=== PATIENT | male | born 1970 | race Caucasian/White ===

== ENCOUNTER 2023-08-05 16:28 | Emergency (ER) | payer SELFPAY ==
[2023-08-05] VITALS (10 sets, daily range): BP systolic 120–138; BP diastolic 76–88; PULSE 68–91; RESP 14–23; TEMP 36.4–36.7; O2SAT 96–100; BMI 30.4
--- NOTE | 2023-08-05 16:32 | EKG12_ITS ---
Test Reason : POSS STROKE Blood Pressure : / mmHG Vent. Rate : 089 BPM Atrial Rate : 089 BPM P-R Int : 164 ms QRS Dur : 090 ms QT Int : 368 ms P-R-T Axes : 066 -03 054 degrees QTc Int : 447 ms Normal sinus rhythm Normal ECG Confirmed by CARLOS ROSENTHAL, MARI ([id number]), publishing editor ARBEN WANG ([id number]) on 08/14/2023 9:17:10 AM Referred By: Confirmed By:MARI GONZALEZ MD
--- NOTE | 2023-08-05 16:32 | CT_ITS ---
We are attempting to reach an attending provider to discuss findings. An addendum with communication details will be sent when the communication is complete. INDICATION: Neuro deficit, acute, stroke suspected EXAMINATION: CT BRAIN - CT Head Stroke Protocol W/O Contrast Injection TECHNIQUE: Multiple axial images were obtained of the head without intravenous contrast. A radiation dose optimization technique was used for this scan. IV Contrast dosage and agent: None. COMPARISON: 10/01/2015. FINDINGS: BRAIN PARENCHYMA: No intra- or extra-axial hemorrhage. No evidence of acute infarct. No intracranial mass or mass effect. Areas of decreased attenuation within the white matter most compatible with diffuse microangiopathic disease, advanced given patient''s age. Unchanged focus of CSF attenuation structure within the right farhat, likely sequela of old lacunar infarct. Posterior fossa structures are unremarkable. CSF SPACES: Appropriate for age. Nonspecific mild ventriculomegaly. Basal cisterns are patent. CALVARIUM, SKULL BASE, PARANASAL SINUSES AND MASTOID AIR CELLS: Clear. No discrete lytic or blastic abnormalities. ORBITS: Both globes, extraocular muscles, optic nerves and retrobulbar fat appear unremarkable. CT/STROKE Brain/Head without Cont IMPRESSION: Diffuse white matter changes, slightly progressed in the interval. No acute intracranial hemorrhage or space-occupying lesion. Electronically Signed: Maddy Hernandez MD at 17:02 EST ,
--- NOTE | 2023-08-05 16:33 | CT_ITS ---
STUDY: CTA HEAD AND NECK WITH CONTRAST REASON FOR EXAM: Male, 52 years old. Neuro deficit, acute, stroke suspected RADIATION DOSAGE (If Supplied By Facility): CTDIvol = ( 18.16 ) mGy, DLP = ( 780.24 ) mGycm TECHNIQUE: CT angiography was performed with a multi-detector CT scanner. Data acquisition was obtained from the skull base through the vertex following intravenous administration of IV 100mL Isovue-370. MIP images were reconstructed from the axial data set. Post-processing of the angiographic images was performed, with multiplanar reformation and 3D reconstruction. Individualized dose optimization techniques were used for this CT. COMPARISON: No relevant priors. FINDINGS: Normal bilateral petrous carotid arteries. Normal right cavernous carotid artery with a normal supraclinoid bifurcation. Normal left cavernous carotid artery with a normal supraclinoid bifurcation. Normal right A1 segments of the anterior cerebral artery. Normal left A1 segments of the anterior cerebral artery. Normal intact anterior communicating artery (ACOM). Normal bilateral A2 segments of the anterior cerebral arteries. Normal right M1 and M2 segments of the middle cerebral arteries, with a normal M1 bifurcation. Normal left M1 and M2 segments of the middle cerebral arteries, with a normal M1 bifurcation. Normal right posterior communicating artery (PCOM). Normal left posterior communicating artery (PCOM). Normal bilateral vertebral arteries. Normal basilar artery with a normal basilar bifurcation. The visualized bilateral superior cerebellar (SCA) arteries are normal. Normal bilateral P1, P2 and visualized P3 segments of the posterior cerebral arteries. There is no demonstrated aneurysm of the [place] of [place]. There is no demonstrated abnormality of the visualized brain. AORTIC ARCH: Normal visualized aortic arch. Normal origins of the brachiocephalic, left common carotid, and left subclavian arteries. RIGHT CAROTID ARTERIES: Normal right common carotid artery (CCA). Normal right common carotid bulb. Normal origin of the right internal carotid (ICA) artery without a hemodynamically significant stenosis. Normal visualized cervical portion of the right internal carotid artery. Normal origin of the right external carotid artery (ECA). LEFT CAROTID ARTERIES: Normal left common carotid artery (CCA). Normal left common carotid bulb. Normal origin of the left internal carotid (ICA) artery without a hemodynamically significant stenosis. Normal visualized cervical portion of the left internal carotid artery. Normal origin of the left external carotid artery (ECA). VERTEBRAL ARTERIES: Normal bilateral vertebral arteries. CT/STROKE CTA Head AND Neck W/Con IMPRESSION: Negative CTA Head without focal stenosis, occlusion or aneurysm. Negative CTA of the neck with no focal stenosis, occlusion or dissection. N.B. : The above Results were Read Back by Maddy Hernandez MD to Axel Steiner DO, and understanding confirmed on 08/05/2023 17:08:30 (ET). Electronically Signed: Maddy Hernandez MD at 17:08 EST ,
--- NOTE | 2023-08-05 16:34 | ED.VIS.STROK ---
HPI History of Present Illness Chief Complaint: Stroke Alert Informant: patient Onset/Context/Timing Onset: Today Context: Sudden Onset Timing: Continuous Quality and Location: Positive for - (Diplopia and tongue numbness) Onset: Woke up with symptoms Worsened by: Nothing Relieved by: Nothing Associated Symptoms Associated Symptoms: Positive for Headache; Negative for Nausea, Vomiting or Chest Pain Narrative Narrative: Patient presents with diplopia and numbness of his tongue that began when he woke up today. Patient states he went to bed between 10:30 PM and 11 PM last night. Patient states he was feeling nearly normal at that time. Patient states he was diagnosed with a stroke a couple weeks ago and has had some waxing and waning symptoms since that time. Patient states his entire tongue feels numb. Patient admits to a mild headache. Patient denies any slurred speech. Patient denies any difficulty ambulating. Patient denies any weakness of his extremities. Patient states his forehead feels somewhat numb. Patient states he has a condition that mimics strokes and that if he is treated like a stroke, it will kill him. [facility] Medical History (Updated 08/05/23 @ 18:[address] Axel Steiner DO) CADASIL Stroke Home Medications taurine 500 mg capsule (Pure Taurine) 500 mg PO DAILY 08/05/23 [History Last Taken Unknown] Allergy/AdvReac Type Severity Reaction Status Date / Time Penicillins Allergy Other Verified 08/05/23 16:29 Social History Smoking Status: Never smoker ROS ROS ED Constitutional Constitutional ED: Denies chills or fever(s) Eyes Eyes: Reports diplopia; Denies blurry vision ENT ENT ED: Denies rhinorrhea or sore throat Cardiovascular Cardiovascular: Denies chest pain or palpitations Respiratory/Chest Respiratory/Chest: Reports dyspnea; Denies cough Gastrointestinal Gastrointestinal: Denies nausea or vomiting Genitourinary Genitourinary ED: Denies dysuria or hematuria Musculoskeletal Musculoskeletal: Denies back pain or neck pain Integumentary Denies abscess or rash Neurologic Neurologic: Reports headache(s); Denies weakness Allergic/Immunologic Allergic/Immunologic ED: Denies mouth swelling or urticaria EXAM Physical Exam Const Vital Signs: 08/05/23 16:29 08/05/23 16:32 08/05/23 16:38 Temperature 97.6 F L 97.8 F Temperature Source Temporal Temporal Pulse Rate 90 68 Respiratory Rate 14 16 Blood Pressure 131/88 H Blood Pressure Mean 102 Pulse Ox 98 98 Oxygen Delivery Method Room Air Room Air Room Air 08/05/23 16:56 08/05/23 16:32 08/05/23 17:00 Temperature Temperature Source Pulse Rate 91 89 88 Respiratory Rate 18 20 H 17 Blood Pressure 124/82 H 131/88 H 120/76 Blood Pressure Mean 96 102 90 Pulse Ox 98 97 98 Oxygen Delivery Method Room Air Room Air Room Air 08/05/23 17:30 Temperature Temperature Source Pulse Rate 78 Respiratory Rate 14 Blood Pressure 138/85 H Blood Pressure Mean 102 Pulse Ox 99 Oxygen Delivery Method Room Air Positive well nourished and well developed General Appearance ED: well developed and NAD HEENT Reports moist mucous membranes Eyes PERRL and EOMs intact bilaterally Neck supple and no JVD Chest Wall inspection of chest normal and palpation of chest normal Resp normal respiratory effort and clear to auscultation bilaterally Cardio Rate: regular rate Rhythm: regular rhythm GI soft to palpation, non-tender and non-distended Extremity normal to inspection General Extremety ED: Negative for deformity, edema or tenderness General Extremity: Negative for deformity or edema Neuro oriented x3 Neuro Narrative: There is slight decreased sensation to light touch over the forehead bilaterally. Severance Coma Scale: document GCS findings Spontaneous Obeys Commands Oriented 15 Sensorium / Orientation: alert Speech: speech normal Motor Exam: strength 5/5 throughout Psych mental status grossly normal Skin no wounds NIHSS NIHSS Initial: 1a Level of Consciousness: 0 1b LOC Questions (Score 2 if aphasic/stupor): 0 1c LOC Commands (Only score 1st attempt): 0 2 Best Gaze (If aphasic, use reflexive mvmts.): 0 3 Visual: 0 4 Facial Palsy: 0 5 Motor Arm Right (UN = amputation/fusion): 0 5 Motor Arm Left: 0 6 Motor Leg Right: 0 6 Motor Leg Left: 0 7 Limb ataxia (Only + if out of proportion): 0 8 Sensory (Aphasia/stupor=0 or 1, coma=2): 1 9 Best Language: 0 10 Dysarthria (mute, coma=2, intubated=UN): 0 11 Extinction and Inattention (only scored if +): 0 Total Score: 1 MDM MDM MDM Narrative Medical decision making narrative: Differential diagnosis includes stroke, intracranial bleeding, electrolyte abnormality, atypical migraine, cardiac dysrhythmia, cardiac ischemia, pneumonia, and coagulopathy. CT scan of the brain will be obtained to assess for stroke and intracranial bleeding. CTA of the head and neck will be obtained to assess for large vessel occlusion. EKG will be obtained to assess for cardiac dysrhythmia and cardiac ischemia. CBC will be obtained to assess for leukocytosis and anemia. Basic metabolic profile will be obtained to assess for electrolyte abnormality and renal function. PT with INR and PTT will be obtained to assess for coagulopathy. High-sensitivity troponin will be obtained to assess for cardiac ischemia. Lab Data Attestation: I reviewed the patient's lab results. Lab results narrative: CBC was reviewed and was within normal limits. PT with INR and PTT were reviewed and were within normal limits. Basic metabolic profile was reviewed and was within normal limits. High-sensitivity troponin was reviewed and was normal at 5. BGT was obtained and was 116. Labs: Laboratory Results - last 24 hr 08/05/23 08/05/23 16:30 16:32 WBC 8.2 RBC 5.66 Hgb 17.1 H Hct 52.0 MCV 91.9 MCH 30.2 MCHC 32.9 RDW Std Deviation 42.9 RDW Coeff of Yevgeniy 12.8 Plt Count 278 MPV 9.2 Immature Gran % (Auto) 0.200 Neut % (Auto) 61.9 Lymph % (Auto) 26.8 [place] % (Auto) 8.7 Eos % (Auto) 1.9 Baso % (Auto) 0.5 Absolute Neuts (auto) 5.1 Absolute Lymphs (auto) 2.21 Nucleated RBC % 0 PT 12.8 INR 1.0 APTT 31.9 Sodium 138 Potassium 4.0 Chloride 105 Carbon Dioxide 30.0 Anion Gap 3 L BUN 17 Creatinine 1.07 Estim Creat Clear Calc 76.36 Est GFR (MDRD) Af Amer 92 Est GFR (MDRD) Non-Af 76 BUN/Creatinine Ratio 15.9 Glucose 116 H Calcium 9.9 Troponin I High Sens 5 POC Glucose 116 H Radiography Chest X-Ray - ED: 1 View, Read by ED Physician, Read by Radiologist and No Acute Disease Diagnostic Testing: Clinical Impression(s) from Imaging Studies Brain CT 08/05/23 16:32 IMPRESSION: Diffuse white matter changes, slightly progressed in the interval. No acute intracranial hemorrhage or space-occupying lesion. Electronically Signed: Maddy Hernandez MD at 17:02 EST Reading Location ID and State: [employer] , Service support , ADDENDUM: 08/05/23 1715 IMPRESSION: Diffuse white matter changes, slightly progressed in the interval. No acute intracranial hemorrhage or space-occupying lesion. N.B. : The above Results were Read Back by Maddy Hernandez MD to Axel Steiner DO, and understanding confirmed on 08/05/2023 17:08:25 (ET). Electronically Signed: Maddy Hernandez MD at 17:02 EST Reading Location ID and State: [employer] , Service support , Head/Neck CTA 08/05/23 16:33 IMPRESSION: Negative CTA Head without focal stenosis, occlusion or aneurysm. Negative CTA of the neck with no focal stenosis, occlusion or dissection. N.B. : The above Results were Read Back by Maddy Hernandez MD to Axel Steiner DO, and understanding confirmed on 08/05/2023 17:08:30 (ET). Electronically Signed: Maddy Hernandez MD at 17:08 EST Reading Location ID and State: [employer] , Service support , ADDENDUM: 08/05/23 1715 IMPRESSION: Negative CTA Head without focal stenosis, occlusion or aneurysm. Negative CTA of the neck with no focal stenosis, occlusion or dissection. N.B. : The above Results were Read Back by Maddy Hernandez MD to Axel Steiner DO, and understanding confirmed on 08/05/2023 17:08:30 (ET). Electronically Signed: Maddy Hernandez MD at 17:08 EST Reading Location ID and State: [employer] , Service support , Chest X-Ray 08/05/23 17:20 IMPRESSION: Normal x-ray examination of the chest for age. Electronically Signed: Maddy Hernandez MD at 17:37 EST , Portable 1 view chest x-ray was obtained. On my independent interpretation, lung zamudio are clear. There is normal cardiac silhouette. Bony thorax is normal. There is no acute process noted. Radiologist also interpreted the x-ray and agrees. CT scan of the brain was obtained. There is no acute intracranial abnormality. There are diffuse white matter changes which have slightly progressed since previous CT. This was interpreted by the radiologist and was also independently reviewed by myself. CTA of the head and neck was obtained. There is no evidence of intracranial bleeding, large vessel occlusion, or stenosis. There is no aneurysm noted. This was interpreted by the radiologist and was also independently reviewed by myself. EKG Initial EKG: Attestation: I personally reviewed and interpreted this EKG as follows: Interpretation: Sinus Rhythm (89) and No Acute Injury Pattern Comments: EKG was obtained. On my independent interpretation, it showed a normal sinus rhythm with a rate of 89. MI interval, QRS interval, and QTc intervals were all normal. [place] was normal. There are no acute ST or T wave changes. Prior EKG tracings: available for review Prior: Unchanged (10/01/2015) Management Discussion w/another healthcare provider: Continuous [employer] Supervisor and Radiologist Treatment and Re-Evaluation Narrative: Patient was given a dose of Ativan prior to his CT scan. Patient was advised of his findings. Case was discussed with stroke neurologist at [facility], Dr. Lemus. He recommended transferring the patient to [facility] for further stroke workup. Patient is agreeable with this. Patient was accepted to the emergency department under the service of Dr. Fleming. Patient understood and was agreeable with the plan. All questions were answered. Stroke Documentation Questions Stroke Team Activated: Yes Reviewed Inclusion/Exclusion criteria: Yes Was Patient considered for Endovascular Intervention?: No-CTA negative, determined not to be an endovascular candidate IV Thrombolytic Administered: No Critical Care Time Critical Care Time: Yes Critical care time (excluding procedures): 30-74 minutes (33), Including time spent:, Discussing w/Patient &/or Family/Ramp Lead, Discussing w/Consultants, Arranging Admission or Transfer and Performing Direct Patient Care at Bedside Discharge Plan Triage Chief Complaint: Stroke Alert ED Provider: Axel Steiner Dx/Rx/DC Orders Clinical Impression: Diplopia, CADASIL, Stroke Prescriptions: No Action Pure Taurine 500 mg capsule 500 mg PO DAILY Referrals: Sanjiv Molina MD [Non-Staff] - Disposition Disposition: Acute Care Hospital Discharge Location: [facility]
--- NOTE | 2023-08-05 16:35 | ED.RN ---
PT. WAS GETTING READY TO GO TO CT, PT STATES HE ABSOLUTELY NEEDS SOMETHING TO HELP HIM CALM DOWN HE WILL FREAK OUT. THAT IS DELAY IN CT. AT THIS POINT
[2023-08-05] MEDS: LORazepam 2 MG/ML Syringe 0.5 MG IV (16:37)
--- NOTE | 2023-08-05 16:42 | ED.RN ---
face sheet faxed to [facility]
[2023-08-05 16:43] LABS: Absolute Lymphocyte Count 2.21 X10^3/uL (0.83-4.51); Absolute Neutrophil Count 5.1 X10^3/uL (2.0-7.7); Basophil# 0.04 X10^3/uL; Basophil% 0.5 % (0-1); Eosinophil# 0.16 X10^3/uL; Eosinophils% 1.9 % (0-5); Hemoglobin 17.1 g/dL (13.0-16.5); Lymphocyte # 2.21 X10^3/ul (0.83-4.51); Lymphocyte % 26.8 % (19-41); Mean Corp Hgb Conc 32.9 g/dL (32-36); Mean Corpuscular Hgb 30.2 pg (27.0-32.0); Mean Corpuscular Volume 91.9 fL (80-94); Mean Platelet Vol. 9.2 fl (6.2-12.0); Monocyte# 0.72 X10^3/uL; Monocyte% 8.7 % (0-10); NRBC Flagged by Analyzer 0 % (0-5); Neutrophil # 5.09 X10^3/uL (2.7-7.7); Neutrophil % 61.9 % (47-70); Platelet Count 278 K/mm3 (150-450); RBC Distribution Width CV 12.8 % (11.6-14.6); RBC Distribution Width SD 42.9 fl (35.1-43.9); Red Blood Count 5.66 M/mm3 (4.6-6.2); White Blood Count 8.2 K/mm3 (4.4-11.0)
[2023-08-05 16:46] LABS: Partial Thromboplast Time 31.9 Seconds (24.1-36.2); Prothrombin Time (Protime)PT. 12.8 SECONDS (11.7-14.9)
[2023-08-05 16:50] LABS: Bedside Glucose 116 mg/dL (74-106)
--- NOTE | 2023-08-05 16:52 | ED.RN ---
pt refused to go to ct until he had ativan. once pt given ativan he said he needed to pee before going to ct. this rn attempted to explaine the importance of the ct. once we arrived to ct the pt was given an urinal, pt attempted to urinate but was unable. now pt is ready for his ct. ct/cta complete. pt returned to room.
[2023-08-05 16:56] LABS: Anion Gap 3 (5-15); BUN 17 mg/dL (7-18); BUN/Creat Ratio 15.9 RATIO (10-20); Calcium,Total 9.9 mg/dL (8.5-10.1); Chloride 105 mmol/L (98-107); Creatinine, Serum 1.07 mg/dL (0.70-1.30); EST Glomerular Filtration Rate 76 mL/min (>60); Est Glom Filt Rate - Afr Amer 92 mL/min (>60); Estimated Creatinine Clearance 76.36 ml/min; Glucose 116 mg/dL (74-106); Sodium Level 138 mmol/L (136-145); Troponin-I HS 5 pg/mL (3.0-78.0)
--- NOTE | 2023-08-05 17:20 | RAD_ITS ---
STUDY: X-RAY CHEST REASON FOR EXAM: Male, 52 years old. Neuro deficit, acute, stroke suspected TECHNIQUE: Single AP portable view of the chest. COMPARISON: None. FINDINGS: The lungs are clear and expanded. There is no demonstrated pleural abnormality. Normal size heart. Normal mediastinum and man. Normal visualized pulmonary arteries. Normal visualized aortic arch and descending thoracic aorta. Normal visualized thoracic spine. Normal visualized ribs, clavicles, and shoulders. There is no demonstrated abnormality of the visualized soft tissue structures of the upper abdomen. RAD/Chest 1 View IMPRESSION: Normal x-ray examination of the chest for age. Electronically Signed: Maddy Hernandez MD at 17:37 EST ,
--- NOTE | 2023-08-05 19:33 | ED.RN ---
pt's family asked about taking the pt to [facility] themselves.Spoke to dr Steiner and was okay with them taking him as long as his IV is removed.
== END 2023-08-05 20:00 | disposition short-term general hospital (02) ==
PROVIDERS: Emergency Provider Emergency Medicine; Visit Provider Emergency Medicine
DX: H53.2 Diplopia (principal); I63.9 Cerebral infarction, unspecified; I67.850 Cerebral autosomal dominant arteriopathy with subcortical infarcts and leukoencephalopathy
CPT/HCPCS: 70450; 70496; 70498; 71045; 80048; 82962; 84484; 85025; 85610; 85730; 93005; 96374; 99285; Q9967

== ENCOUNTER → 2023-12-12 | Outpatient (CLI) | payer MEDICAID, SELFPAY ==
[2023-12-12 11:11] LABS: Absolute Lymphocyte Count 1.62 X10^3/uL (0.83-4.51); Absolute Neutrophil Count 5.3 X10^3/uL (2.0-7.7); Basophil# 0.02 X10^3/uL; Basophil% 0.3 % (0-1); Eosinophil# 0.09 X10^3/uL; Eosinophils% 1.2 % (0-5); Hematocrit 51.3 % (40-54); Hemoglobin 17.6 g/dL (13.0-16.5); Lymphocyte # 1.62 X10^3/ul (0.83-4.51); Lymphocyte % 20.8 % (19-41); Mean Corp Hgb Conc 34.3 g/dL (32-36); Mean Corpuscular Hgb 31.3 pg (27.0-32.0); Mean Corpuscular Volume 91.1 fL (80-94); Mean Platelet Vol. 9.4 fl (6.2-12.0); Monocyte# 0.71 X10^3/uL; Monocyte% 9.1 % (0-10); NRBC Flagged by Analyzer 0 % (0-5); Neutrophil # 5.31 X10^3/uL (2.7-7.7); Neutrophil % 68.3 % (47-70); Platelet Count 227 K/mm3 (150-450); RBC Distribution Width CV 12.1 % (11.6-14.6); RBC Distribution Width SD 40.4 fl (35.1-43.9); Red Blood Count 5.63 M/mm3 (4.6-6.2); White Blood Count 7.8 K/mm3 (4.4-11.0)
[2023-12-12 11:39] LABS: ALB/GLOB Ratio 0.9 RATIO (0.9-2.4); AST(SGOT) 26 U/L (15-37); Alanine Aminotransfer ALT/SGPT 37 U/L (16-61); Albumin, Serum 3.5 g/dL (3.2-5.0); Alkaline Phosphatase 79 U/L (45-117); Anion Gap 4 (5-15); BUN 14 mg/dL (7-18); BUN/Creat Ratio 12.6 RATIO (10-20); Calcium,Total 9.2 mg/dL (8.5-10.1); Chloride 105 mmol/L (98-107); Cholesterol 197 mg/dL (200); Creatinine, Serum 1.11 mg/dL (0.70-1.30); EST Glomerular Filtration Rate 73 mL/min (>60); Est Glom Filt Rate - Afr Amer 88 mL/min (>60); Free T3 2.5 pg/mL (2.18-3.98); Glucose 116 mg/dL (74-106); High Density Lipoprotein 44 mg/dL; PSA,Total - Annual Screen 1.97 ng/mL (0.00-4.00); Potassium 4.1 mmol/L (3.5-5.1); Protein, Total 7.5 g/dL (6.4-8.2); Sodium Level 137 mmol/L (136-145); T4 Free Direct 0.91 ng/dL (0.76-1.46); Thyroid Stim Hormone (TSH) 1.07 uIU/mL (0.358-3.74); Triglycerides 128 mg/dL; Very Low Density Lipoprotein 26 mg/dL (5-40)
[2023-12-13 07:01] LABS: Estradiol 59.4 pg/mL
[2023-12-13 12:09] LABS: PSA, Total 1.8 ng/mL (0.0-4.0); Thyroid Peroxidase AB < 9 IU/mL (0-34)
== END | disposition home or self-care (01) ==
LOC: PAVLAB 10:40
PROVIDERS: PCP Registered Nurse; Referring Provider Registered Nurse; Visit Provider Registered Nurse
DX: F48.2 Pseudobulbar affect (principal); I67.850 Cerebral autosomal dominant arteriopathy with subcortical infarcts and leukoencephalopathy; E03.9 Hypothyroidism, unspecified; N40.1 Benign prostatic hyperplasia with lower urinary tract symptoms; R97.20 Elevated prostate specific antigen [PSA]; Z12.5 Encounter for screening for malignant neoplasm of prostate; Z13.29 Encounter for screening for other suspected endocrine disorder
CPT/HCPCS: 84153; 36415; 80053; 80061; 82670; 84403; 84439; 84443; 84481; 85025; 86376; G0103

== ENCOUNTER 2024-01-24 10:50 | Emergency (ER) | payer SELFPAY, MEDICAID ==
[2024-01-24 10:52] VITALS: BP 129/87; PULSE 82; RESP 16; TEMP 36.6; O2SAT 97; BMI 30.1
--- NOTE | 2024-01-24 11:05 | RAD_ITS ---
STUDY: X-RAY - LEFT ANKLE REASON FOR EXAM: Male, 53 years old. INJURY TECHNIQUE: 3 view(s) of the ankle. COMPARISON: None. FINDINGS: Normal visualized distal tibia and fibula. Normal medial and lateral malleoli. Normal tibiotalar articulation and ankle mortise. Normal visualized talus and calcaneus. The visualized subtalar, talonavicular, calcaneocuboid and tarsal articulations are normal. Soft tissue swelling overlying the lateral malleolus. RAD/Ankle min 3 Views IMPRESSION: Soft tissue swelling overlying the lateral malleolus. Electronically Signed: Ivan Chavez MD at 11:23 EDT ,
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
[2024-01-24] MEDS: Ibuprofen 600 MG Tablet PO (11:45)
--- NOTE | 2024-01-24 12:40 | RAD_ITS ---
STUDY: X-RAY - LEFT FOOT CLINICAL: Male, 53 years old. Foot injury TECHNIQUE: 3 view(s) of the foot. COMPARISON: None. FINDINGS: Normal talus, calcaneus, and tarsal bones. Normal visualized subtalar, talonavicular, calcaneocuboid, tarsal and tarsometatarsal articulations. Normal metatarsi. Normal metatarsophalangeal joint of the great toe. Normal tibial and fibular sesamoid bones. Normal interphalangeal joint of the great toe. Normal phalanges of the great toe. Normal second through fifth metatarsophalangeal joints. Normal interphalangeal joints and phalanges of the lesser toes. The soft tissue structures are unremarkable. RAD/Foot min 3 Views IMPRESSION: Normal x-ray examination of the foot. Electronically Signed: Ivan Chavez MD at 13:09 EDT ,
--- NOTE | 2024-01-24 13:44 | RAD_ITS ---
STUDY: X-RAY - LEFT SHOULDER REASON FOR EXAM: Male, 53 years old. Anterior left shoulder pain. TECHNIQUE: 4 view(s) of the shoulder. COMPARISON: None. FINDINGS: Normal glenohumeral articulation. There is widening of the AC joint, with displacement of the clavicle, consistent with a Type III acromioclavicular joint separation. Normal acromion. Normal humeral head and visualized proximal humerus. The soft tissue structures are unremarkable. Normal visualized pulmonary apex. RAD/Shoulder min 2 Views IMPRESSION: Type III left AC joint separation. Electronically Signed: Ivan Chavez MD at 14:24 EDT ,
[2024-01-24 14:51] VITALS: BP 145/88; PULSE 74; RESP 16; TEMP 36.7; O2SAT 98
--- NOTE | 2024-01-24 15:15 | NURSING ---
Pt given new dc instructions. Pt and family verbalized understanding.
== END 2024-01-24 15:25 | disposition home or self-care (01) ==
PROVIDERS: Emergency Provider Emergency Medicine; PCP Registered Nurse; Visit Provider Emergency Medicine
DX: S93.402A Sprain of unspecified ligament of left ankle, initial encounter (principal); R73.03 Prediabetes; Z86.73 Personal history of transient ischemic attack (TIA), and cerebral infarction without residual deficits; X58.XXXA Exposure to other specified factors, initial encounter
CPT/HCPCS: 73030; 73610; 73630; 99284

== ENCOUNTER 2024-02-05 09:16 | Emergency (ER) | payer MEDICAID, SELFPAY ==
[2024-02-05 09:17] VITALS: BP 134/94; PULSE 81; RESP 18; TEMP 36.6; O2SAT 97; BMI 29.1
--- NOTE | 2024-02-05 09:26 | RAD_ITS ---
STUDY: X-RAY - LEFT FOOT CLINICAL: Male, 53 years old. Pain trauma TECHNIQUE: 3 view(s) of the foot. COMPARISON: None. FINDINGS: Normal talus, calcaneus, and tarsal bones. Normal visualized subtalar, talonavicular, calcaneocuboid, tarsal and tarsometatarsal articulations. Normal metatarsi. Normal metatarsophalangeal joint of the great toe. Normal tibial and fibular sesamoid bones. Normal interphalangeal joint of the great toe. Normal phalanges of the great toe. Normal second through fifth metatarsophalangeal joints. Normal interphalangeal joints and phalanges of the lesser toes. Soft tissue swelling. RAD/Foot min 3 Views IMPRESSION: Soft tissue swelling. Electronically Signed: Ivan Chavez MD at 10:08 EDT ,
--- NOTE | 2024-02-05 09:26 | RAD_ITS ---
STUDY: X-RAY - LEFT SHOULDER REASON FOR EXAM: Male, 53 years old. Pain trauma TECHNIQUE: 4 view(s) of the shoulder. COMPARISON: None. FINDINGS: Normal glenohumeral articulation. There is widening of the AC joint, with displacement of the clavicle, consistent with a Type III acromioclavicular joint separation. Normal acromion. Normal humeral head and visualized proximal humerus. The soft tissue structures are unremarkable. Normal visualized pulmonary apex. RAD/Shoulder min 2 Views IMPRESSION: There is evidence of a type III left acromioclavicular joint separation. Electronically Signed: Ivan Chavez MD at 10:10 EDT ,
--- NOTE | 2024-02-05 09:26 | RAD_ITS ---
STUDY: X-RAY - LEFT ANKLE REASON FOR EXAM: Male, 53 years old. Pain trauma TECHNIQUE: 3 view(s) of the ankle. COMPARISON: None. FINDINGS: Normal visualized distal tibia and fibula. Normal medial and lateral malleoli. Normal tibiotalar articulation and ankle mortise. Normal visualized talus and calcaneus. The visualized subtalar, talonavicular, calcaneocuboid and tarsal articulations are normal. Soft tissue swelling. RAD/Ankle min 3 Views IMPRESSION: Soft tissue swelling. Electronically Signed: Ivan Chavez MD at 10:09 EDT ,
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
--- NOTE | 2024-02-05 09:53 | RAD_ITS ---
STUDY: X-RAY - LEFT TIBIA AND FIBULA REASON FOR EXAM: Male, 53 years old. Injury/Pain TECHNIQUE: 2 view(s) of the tibia and fibula were obtained. COMPARISON: None. FINDINGS: Normal visualized tibia. Normal visualized fibula. Soft tissue swelling. RAD/Tibia & Fibula 2 Views IMPRESSION: Soft tissue swelling. Electronically Signed: Ivan Chavez MD at 10:41 EDT ,
[2024-02-05 11:27] VITALS: BP 145/95; PULSE 75; RESP 16; TEMP 36.4; O2SAT 94
== END 2024-02-05 11:28 | disposition home or self-care (01) ==
PROVIDERS: Emergency Provider Emergency Medicine; PCP Registered Nurse; Visit Provider Emergency Medicine
DX: S93.402A Sprain of unspecified ligament of left ankle, initial encounter (principal); Z86.73 Personal history of transient ischemic attack (TIA), and cerebral infarction without residual deficits; V29.888A Rider (driver) (passenger) of other motorcycle injured in other specified transport accidents, initial encounter
CPT/HCPCS: 73030; 73590; 73610; 73630; 99283

== ENCOUNTER 2024-03-09 20:47 | Emergency (ER) | payer MEDICAID, SELFPAY ==
[2024-03-09 20:48] VITALS: BP 150/109; PULSE 96; RESP 15; TEMP 36.2; O2SAT 95; BMI 29.2
--- NOTE | 2024-03-09 20:56 | RAD_ITS ---
INDICATION: injury EXAMINATION/TECHNIQUE: X-RAY - LEFT XR Foot Min 3 Views COMPARISON: Left foot radiographs 01/24/2024. FINDINGS: 3 views of the left foot. BONES: Normal anatomic alignment without evidence of fracture or subluxation. No concerning bony lesion or abnormal sclerosis to suggest lesion. JOINTS: No significant degenerative change. SOFT TISSUES: Unremarkable. RAD/Foot min 3 Views IMPRESSION: No acute osseous abnormality of the left foot. Electronically Signed: Abiel Armstrong MD at 21:21 EDT ,
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
--- NOTE | 2024-03-09 21:00 | RAD_ITS ---
INDICATION: injury EXAMINATION/TECHNIQUE: X-RAY - LEFT XR Ankle Min 3 Views COMPARISON: left ankle radiographs 01/24/2024 FINDINGS: 3 views of the left ankle. BONES: Normal anatomic alignment without evidence of fracture or subluxation. No concerning bony lesion or abnormal sclerosis to suggest lesion. JOINTS: No significant degenerative change. SOFT TISSUES: Bimalleolar soft tissue swelling. RAD/Ankle min 3 Views IMPRESSION: No acute osseous abnormality of the left ankle. Electronically Signed: Abiel Armstrong MD at 21:16 EDT ,
[2024-03-09 22:21] VITALS: BP 140/98; PULSE 82; RESP 16; TEMP 36.3; O2SAT 94
== END 2024-03-09 22:21 | disposition home or self-care (01) ==
PROVIDERS: Emergency Provider Emergency Medicine; PCP Registered Nurse; Visit Provider Emergency Medicine
DX: S90.02XA Contusion of left ankle, initial encounter (principal); S90.32XA Contusion of left foot, initial encounter; E03.9 Hypothyroidism, unspecified; Z79.899 Other long term (current) drug therapy; X58.XXXA Exposure to other specified factors, initial encounter; Z86.73 Personal history of transient ischemic attack (TIA), and cerebral infarction without residual deficits
CPT/HCPCS: 73610; 73630; 99282

== ENCOUNTER 2024-03-26 15:34 | Emergency (ER) | payer MEDICAID, SELFPAY ==
[2024-03-26 15:35] VITALS: BP 163/91; PULSE 100; RESP 17; TEMP 36.6; O2SAT 97
[2024-03-26] MEDS: Ketorolac 30 MG/ML Syringe IM (16:14)
--- NOTE | 2024-03-26 16:30 | RAD_ITS ---
STUDY: X-RAY - LUMBAR SPINE REASON FOR EXAM: Male, 53 years old. back pain on left radiating to foot TECHNIQUE: 5 view(s) of the lumbar spine were obtained including flexion and extension on the lateral projection. COMPARISON: None FINDINGS: Normal lumbar lordosis. There is no substantial scoliosis. There is a normal alignment of the vertebrae. Films obtained in flexion and extension demonstrate limited motion in extension but no evidence for instability upon flexion or extension No evidence for acute fracture or subluxation. No lytic or sclerotic bony lesions. . There is very minor multilevel disc space narrowing and endplate spurring. The soft tissue structures are unremarkable. RAD/L/S Spine Bending Flex/Ext IMPRESSION: Early spondylotic changes. No acute fracture or other significant bony pathology. Electronically Signed: Piter Mendoza MD at 17:00 EDT ,
--- NOTE | 2024-03-26 16:57 | EDS_ITS ---
HPI History of Present Illness Chief Complaint: Back Narrative Narrative: Patient is a 53-year-old male with a past medical history of hypothyroidism, stroke, CADASIL who presents to the emerged part with a chief complaint of left- sided back pain radiating down to his foot. Patient states that this happened before where he is sitting in a chair and notes that he has extreme back pain shooting down his foot. He states that the only thing that helped him in the past was massage therapy and states that he cannot afford this right now therefore he was advised to come to the emergency department for symptomatic relief. Patient states that he did not take anything [id number] for pain prior to his arrival here. Patient denies any trauma or new injuries. Patient states that he has not had any x-rays of his lower back at least recently. Patient states that he has been urinating normally for self and having normal bowel movements. Denies any fevers PFSH PFSH Medical History Hypothyroidism Left shoulder pain CADASIL Stroke Home Medications ?Medication ?Instructions ?Recorded ?Last Taken ?Type bupropion HCl 300 mg 24 hr tablet, 300 mg PO DAILY 03/09/24 Unknown History extended release escitalopram oxalate 10 mg tablet 5 mg PO DAILY 03/09/24 Unknown History ondansetron 4 mg disintegrating 4 mg PO Q8H PRN nausea and 03/26/24 Unknown Rx tablet vomiting #12 tabs oxycodone-acetaminophen 5 mg-325 1 tab PO Q6H PRN pain 3 days #12 03/26/24 Unknown Rx mg tablet (Endocet) tabs Allergy/AdvReac Type Severity Reaction Status Date / Time Penicillins Allergy Other Verified 03/26/24 15:35 Surgical History Hx of tonsillectomy Social History Smoking Status: Never smoker ROS ROS ED ROS Narrative Constitutional: Denies any fevers, chills, headaches, lightheadedness, dizziness Eyes: Denies change in vision double vision blurry vision Cardiovascular: Denies chest pain or palpitations Respiratory: Denies coughing wheezing shortness of breath Abdomen: Denies abdominal pain nausea vomiting diarrhea states that he is having normal bowel movements as noted in HPI : Denies any painful urination, hematuria, polyuria and states that he has been urinating normally for himself Neurological: States that he has sharp shooting pain from his back down to his foot and the left side denies any other weakness or tingling Musculoskeletal: Complains of back pain as noted in HPI Skin: Denies rashes or lesions EXAM Physical Exam Narrative Exam Narrative: General: Patient was lying in bed rest comfortably did not appear to be uncomfortable secondary to back pain Head: Atraumatic, normocephalic Eyes: PERRL bilaterally, EOMI bilateral, no conjunctival injection noted Neck: Soft, supple, trach midline Cardiovascular: Regular rate and rhythm no murmurs gallops rubs noted Respiratory: Clear to auscultation bilaterally Abdomen: No tenderness palpation, soft, nondistended, bowel sounds present x 4 Musculoskeletal: No midline tenderness palpation thoracolumbar spine, tender to palpation over the left quadratus lumborum Extremities: +5/5 strength noted in the bilateral upper and lower extremities, no pedal edema no exam, radial pulses +2/4 in the bilateral upper extremities Neurological: Patient was following commands knew that he was at [facility] year is 2023. Sensation grossly intact in the bilateral lower extremities, no saddle anesthesia noted Skin: Warm, dry, intact no rashes or lesions noted Const Vital Signs: 03/26/24 15:35 03/26/24 17:34 Temperature 98 F Temperature Source Temporal Pulse Rate 100 81 Respiratory Rate 17 16 Blood Pressure 163/91 H 136/91 H Blood Pressure Mean 115 106 Pulse Ox 97 97 Oxygen Delivery Method Room Air Room Air MDM MDM MDM Narrative Medical decision making narrative: Patient is a 53-year-old male who presents to the emergency department with chief complaint of back pain radiating to his left foot as noted above. Patient will have a workup performed here on the differential diagnose includes but not limited to sciatica, herniated lumbar disc, musculoskeletal strain. Once workup is obtained and reviewed he will be reevaluated. Patient be given Toradol intramuscularly here. Patient's x-ray reviewed and showed early spondylitic changes no acute fracture or other significant bony pathology. Reevaluation of the patient he feels significantly improved would like to go home this point in time. Did discuss results of his x-rays with him. Patient was advised to follow-up with his primary care physician in the outpatient setting as well as he will be referred to orthopedics. Patient was encouraged to rotate Tylenol ibuprofen [id number] for mild to moderate pain. He was encouraged to use the narcotic sent to his pharmacy for severe pain and the Zofran and advised to not take these and operate anything under the influence. Patient was encouraged to return with worsening symptoms or any concerns. He verbalized understanding and he would like to go home all question concerns answered he is discharged home in stable condition. Radiography Diagnostic Testing: Clinical Impression(s) from Imaging Studies Lumbar Spine X-Ray 03/26/24 16:30 IMPRESSION: Early spondylotic changes. No acute fracture or other significant bony pathology. Electronically Signed: Piter Mendoza MD at 17:00 EDT , Discharge Plan Triage Chief Complaint: Back ED Provider: Raulito Meza Dx/Rx/DC Orders Clinical Impression: Chronic lumbar radiculopathy, Back pain Instructions: Back Safety: Bending Prescriptions: New ondansetron 4 mg tablet,disintegrating 4 mg PO Q8H PRN (Reason: nausea and vomiting) Qty: 12 0RF oxycodone-acetaminophen [Endocet] 5-325 mg tablet 1 tab PO Q6H PRN (Reason: pain) 3 Days Qty: 12 0RF No Action escitalopram oxalate 10 mg tablet 5 mg PO DAILY bupropion HCl 300 mg tablet extended release 24 hr 300 mg PO DAILY Primary Care Provider: Angy Tran NP Referrals: Angy Tran NP, [facility] [Primary Care Provider] - Hamzah Vasquez DO [Med Staff - Active Staff] - Activity Restrictions/Additional Instructions: Rotate Tylenol ibuprofen [id number] as discussed here in the emergency department for pain control. Use the narcotic for severe pain and do not operate anything under the influence of these. Return with worsening symptoms or any concerns follow-up with your primary care physician and you referred to orthopedics as well. Print Language: Cameroonian Disposition Disposition: Home, Self Care
[2024-03-26 17:34] VITALS: BP 136/91; PULSE 81; RESP 16; O2SAT 97
== END 2024-03-26 18:14 | disposition home or self-care (01) ==
PROVIDERS: Emergency Provider Emergency Medicine; PCP Registered Nurse; Visit Provider Emergency Medicine
DX: M54.16 Radiculopathy, lumbar region (principal); Z86.73 Personal history of transient ischemic attack (TIA), and cerebral infarction without residual deficits
CPT/HCPCS: 72120; 96372; 99282

== ENCOUNTER 2024-04-07 10:00 | Outpatient (RCR) | payer MEDICAID, SELFPAY ==
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
--- NOTE | 2023-09-21 13:55 | HP.OTEVAL ---
Patient's Visit Information Visit Information Visit Information: MASSIMO MARK is a 52 year old M, referred to Occupational Therapy by Angy Tran, SYD, with a diagnosis of stroke. 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 pt states since late fall his last stroke on [place]. pt states he was at [facility] for about 3 weeks total. Pt states he returned home 2023. pt states he just got approved Medicaid to assist with his medical care. 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 pt continues to work about 20 hours a week a decrease from working 6x a week for 10 hours a day. pt lives in a [facility] with 2 entry steps. pt states master bedroom and bath on 2nd floor with 12ish steps. Does have bathroom on main floor. laundry is in basement with 12ish steps- pt lives alone. ( who left months ago has been around a little with some things- she does not live at this residence) Pt states he has had friends and family (sister) that have been helping with meals and house tasks) pt states he walks to his office about a mile from where he lives. ROM Shoulder: right 165 left 155 Elbow: right 0/140 left 0/140 Forearm: right/left WFL left lower motion to perform. ROM Comments: pt demo with a slower motor control of left UE Strength Shoulder: flexion right 28.8# left 24# Elbow: biceps right 35# left 32# triceps right 33# left 36# Biological Science Aide: right 110# left 85# Lateral Pinch: right 28# left 26# Tripod Pinch: right 28# left 24# Sensation Sensation Comments: states he has hand tingling since his initial stroke in 200 [place] Peg Right: 28.08 sec. Left: 39.40 sec In-Hand Manipulation Finger to Palm Translation: Mild - Right and Moderate - Left Palm to Finger Translation: Mild - Right and Moderate - Left Shift: Mild - Right and Moderate - Left Quick DASH-Disab of Arm,Shoulder& Hand Quick DASH Score: 43.3325 Goals Goal:: pt will demo a increase in left contracts specialist strength by 20# to increase pt ind. with ADLs and IADLs by d/c pt will demo use of safe lifting precautions from knee height to shoulder height to simulate IADLs by d.c Goal:: pt will demo a increase in UB gross motor and FMC to increase IND with placing cups/dishes in overhead cabinets(simulate reach) without hitting items on shelves by d/c pt will demo a reduction in time to perform left 9-hole peg test by 8 sec. indicating increase in pts FMS speed by d.c pt will demo a increase in UE speed when perform AROM of UE to improve fluid motion for ADL performance by d/c Rehabilitation General Assessment: pt demo with a decrease in UE motor control as well as a decrease in FMS limiting pts ind. with ADLs and IADls. Pt would benefit from skilled OT services 2x week for 8 weeks to assist pt in return of his gross and FMS. Today therapist ed pt on POC pt demo understanding and agree to POC. Rehabilitation Potential: Good Anticipated Interventions Anticipated Interventions: A/AAROM/PROM, Strengthening, Fine Motor Coord/Jason, Neuro Reeducation, Education re assistive Equipment, Education re Diagnosis and Home Program Visit Plan Frequency: 2x /Week Duration: 6 Weeks TEXT: Thank you for the opportunity to evaluate your patient. For Medicare and Medicare HMO plans, please review the plan of care and approve it. It will need to be FAXED BACK to us at [phone] for Medicare purposes. Please let me know if there are questions or concerns regarding this plan of care. Physician Signature: Date:
--- NOTE | 2023-11-08 15:48 | HP.PTREVAL ---
Re-Evaluation Intro: Angy Tran, VERA-C, It has been my pleasure to treat MASSIMO MARK over the last 10 visits for CADASIL, Stroke. Please see the progress note below for an update on the physical therapy plan of care! Subjective Subjective: Pt reports not falling for a month, but it takes a lot of effort to not fall. Pt frequently crosses the street and when he is carrying objects he feels very unsteady. Pt reports frequent instances of tripping and stumbling throughout the day, catching his L toe often. 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 Objective Objective/Function: 5xSTS: 13s with no UE use, some mild post LOB upon standing upright TU.70 on second trial using SPC, first trial slightly increased in time and had decreased toe clearance when turning GAIT: 700ft with SPC MMT: seated hip flex L 3+/5, 4/5 STAIRS: reciprocal pattern with unilateral HR use, no LOB but had some difficulty clearing L toe with ascending Pt has improved 5xSTS and TUG time, pt has improved coordination and use of cane with mobility. Stairs had no issues, but pt continues to have decreased L foot clearance during swing phase, pt wearing AFO but lacked full hip flex. 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 1000ft with SPC and no LOB Goal Time Frame: 4-6 Weeks Goal Progress: Progressing Goal 2:: STG: Pt will achieve <20s during 5xSTS with no UE use Goal Time Frame: 4-6 Weeks Goal Progress: Goal Met Goal 3:: STG: Pt will achieve <25s on TUG using cane Goal Time Frame: 4-6 Weeks Goal Progress: Goal Met Goal 4:: LTG: Pt will be able to amb. 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 and pick up truck driver an object off the floor with no LOB Goal Time Frame: 6-8 Weeks Goal 6:: NEW GOAL: Pt will demonstrate symmetrical hip flexion strength to improve L foot clearances Goal Time Frame: 4-6 Weeks Anticipated Interventions Anticipated Interventions Patient/Client Instruction: Educate patient on: Plan of Care For the Purpose of:: To improve muscle performance and motor function, To improve ability to perform ADL's, To increase tolerance to activity/condition/position, To improve performance and independence with ADL's, To decrease level of supervision to perform tasks, To improve ability of physical actions for home/community/work/leisure, To improve gait and locomotor functions, To improve endurance, To improve balance, To improve safety with gait, To assume or resume ADL's, To reduce risk of recurrence, To improve safety, To foster healthy habits, To improve decision making, To improve self management, To prevent re-injury, To improve ability to perform tasks related to life management and To improve tolerance to ADL's Therapeutic Exercise to Include: Strength training, Endurance training, Balance training, Coordination, Body mechanics, Gait and locomotor training and Neuromotor development For the Purpose of:: To improve muscle performance and motor function, To improve ability to perform ADL's, To increase tolerance to activity/condition/position, To improve performance and independence with ADL's, To decrease level of supervision to perform tasks, To improve ability of physical actions for home/community/work/leisure, To improve gait and locomotor functions, To improve endurance, To improve balance, To improve safety with gait, To assume or resume ADL's, To reduce risk of recurrence, To improve safety, To improve health and function, To foster healthy habits, To improve decision making, To prevent re-injury and To improve ability to perform tasks related to life management Functional Training to Include: Gait training For the Purpose of:: To improve ability of physical actions for home/community/work/leisure, To improve gait and locomotor functions, To improve endurance, To improve balance, To improve safety with gait, To improve safety, To improve self management, To improve ability to perform tasks related to life management and To improve tolerance to ADL's Manual Therapy Techniques to Include: Soft tissue mobilization For the Purpose of:: To decrease pain, To improve nutrient delivery to tissue, To improve muscle performance and motor function and To improve ability to perform ADL's Assistive Devices: Cane Orthotics: Brace For the Purpose of:: To improve balance, To improve safety with gait, To improve safety, To improve self management and To improve ability to perform tasks related to life management Cryotherapy (ice pack, ice massage): Yes Thermo therapy (hot pack): Yes For the Purpose of:: To decrease pain and To decrease swelling/inflammation Re-Evaluation Ending Re-evaluation ending: Please do not hesitate to contact me at [phone] by phone or if you have questions or concerns regarding this new plan of care! Sincerely, ADDISON FitzgeraldT
--- NOTE | 2023-11-08 15:48 | HP.PTREVAL ---
Re-Evaluation Intro: Angy Tran, VERA-C, It has been my pleasure to treat MASSIMO MARK over the last 10 visits for CADASIL, Stroke. Please see the progress note below for an update on the physical therapy plan of care! Subjective Subjective: Pt reports not falling for a month, but it takes a lot of effort to not fall. Pt frequently crosses the street and when he is carrying objects he feels very unsteady. Pt reports frequent instances of tripping and stumbling throughout the day, catching his L toe often. 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 Objective Objective/Function: 5xSTS: 13s with no UE use, some mild post LOB upon standing upright TU.70 on second trial using SPC, first trial slightly increased in time and had decreased toe clearance when turning GAIT: 700ft with SPC MMT: seated hip flex L 3+/5, 4/5 STAIRS: reciprocal pattern with unilateral HR use, no LOB but had some difficulty clearing L toe with ascending Pt has improved 5xSTS and TUG time, pt has improved coordination and use of cane with mobility. Stairs had no issues, but pt continues to have decreased L foot clearance during swing phase, pt wearing AFO but lacked full hip flex. Plan Plan Plan: 1) Gait training with and without cane, add weight to R side/carry objects, add obstacles to walk over or around (busy environment best) *Pt frequently crossing street, work on gait speed *Stress foot clearance, work on stepping over hurdles or stepping through act (can combine with hip flexor strengthening) 2) Dynamic balance: reaching tasks, bending down to pick pulling machine tender objects off floor 3) LE/hip strengthening: especially hip flexors Balance/Gait/Functional tests Balance/Special Test Scores Lower Extremity Functional Score: 36 TUG Test Time Seconds: 19.70 Tug Test: <20 sec.=mostly independent 6 Minute Walk Test: 219.46 meters / 740 feet Goals Goals Goal 1:: STG: Pt will amb. 1000ft with SPC and no LOB Goal Time Frame: 4-6 Weeks Goal Progress: Progressing Goal 2:: STG: Pt will achieve <20s during 5xSTS with no UE use Goal Time Frame: 4-6 Weeks Goal Progress: Goal Met Goal 3:: STG: Pt will achieve <25s on TUG using cane Goal Time Frame: 4-6 Weeks Goal Progress: Goal Met Goal 4:: LTG: Pt will be able to amb. 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 and pick pulling machine tender an object off the floor with no LOB Goal Time Frame: 6-8 Weeks Goal 6:: NEW GOAL: Pt will demonstrate symmetrical hip flexion strength to improve L foot clearances Goal Time Frame: 4-6 Weeks Anticipated Interventions Anticipated Interventions Patient/Client Instruction: Educate patient on: Plan of Care For the Purpose of:: To improve muscle performance and motor function, To improve ability to perform ADL's, To increase tolerance to activity/condition/position, To improve performance and independence with ADL's, To decrease level of supervision to perform tasks, To improve ability of physical actions for home/community/work/leisure, To improve gait and locomotor functions, To improve endurance, To improve balance, To improve safety with gait, To assume or resume ADL's, To reduce risk of recurrence, To improve safety, To foster healthy habits, To improve decision making, To improve self management, To prevent re-injury, To improve ability to perform tasks related to life management and To improve tolerance to ADL's Therapeutic Exercise to Include: Strength training, Endurance training, Balance training, Coordination, Body mechanics, Gait and locomotor training and Neuromotor development For the Purpose of:: To improve muscle performance and motor function, To improve ability to perform ADL's, To increase tolerance to activity/condition/position, To improve performance and independence with ADL's, To decrease level of supervision to perform tasks, To improve ability of physical actions for home/community/work/leisure, To improve gait and locomotor functions, To improve endurance, To improve balance, To improve safety with gait, To assume or resume ADL's, To reduce risk of recurrence, To improve safety, To improve health and function, To foster healthy habits, To improve decision making, To prevent re-injury and To improve ability to perform tasks related to life management Functional Training to Include: Gait training For the Purpose of:: To improve ability of physical actions for home/community/work/leisure, To improve gait and locomotor functions, To improve endurance, To improve balance, To improve safety with gait, To improve safety, To improve self management, To improve ability to perform tasks related to life management and To improve tolerance to ADL's Manual Therapy Techniques to Include: Soft tissue mobilization For the Purpose of:: To decrease pain, To improve nutrient delivery to tissue, To improve muscle performance and motor function and To improve ability to perform ADL's Assistive Devices: Cane Orthotics: Brace For the Purpose of:: To improve balance, To improve safety with gait, To improve safety, To improve self management and To improve ability to perform tasks related to life management Cryotherapy (ice pack, ice massage): Yes Thermo therapy (hot pack): Yes For the Purpose of:: To decrease pain and To decrease swelling/inflammation Re-Evaluation Ending Re-evaluation ending: Please do not hesitate to contact me at [phone] by phone or if you have questions or concerns regarding this new plan of care! Sincerely, ADDISON FitzgeraldT
--- NOTE | 2023-11-15 13:25 | HP.OTDCSUM ---
Discharge Summary D/C Summary: It has been my pleasure to treat MASSIMO MARK under orders from SYD Castrejon, for the diagnosis of stroke L affected for a total of 11 visit(s). Please see the following information for a summary of their discharge status. Overall Improvement % Improvement: 75 Objective Objective/Function: right shoulder flex 28# same as initial left 27# increase from 24# right Biceps 49# increase from 35# left 32# a 41#increase from right triceps 40 increase from 33 left 40# increase from 36# right stacker and sorter operator strength 140# increase from 110# left 105# increase from 85# pt has made gain in UB strength . 9 hole peg test: 27.97 sed. decreased from 39.40. pt has met OT goals at this. Pt reports IND with all ADLS and IADLs at this time. Pt has continued to work as well as during this recovery. Pt agree OT D/C. Pt agrees to cont. Physical therapy for balance and walking. Goals Patient Goals: Regain Strength, Improve Fine Motor Skills and Use Hand/Wrist/Arm Normally Again Goal:: pt will demo a increase in left stacker and sorter operator strength by 20# to increase pt ind. with ADLs and IADLs by d/c (goal met) pt will demo use of safe lifting precautions from knee height to shoulder height to simulate IADLs by d.c ( goal met) Goal:: pt will demo a increase in UB gross motor and FMC to increase IND with placing cups/dishes in overhead cabinets(simulate reach) without hitting items on shelves by d/c ( goal met) pt will demo a reduction in time to perform left 9-hole peg test by 8 sec. indicating increase in pts FMS speed by d.c goal met pt 27.97 sec. pt will demo a increase in UE speed when perform AROM of UE to improve fluid motion for ADL performance by d/c ( goal met ) Plan Plan: D/C with HEP will continue with his Physical therapy balance and ambulation. D/C Information Discharge Comments: pt was seen for 11 OT sessions following CVA. pt has met OT goals and at this time will be D/C with HEP. pt will continue with Physical therapy for balance and ambulation. pt agrees to D/C and continue with PT. d/c sentence: If there are questions or concerns regarding this patient's occupational therapy, please fell free to call me at [phone]. Thank you for the referral of this patient. Sincerely, Laura Steel OTR/L, CHT
--- NOTE | 2023-12-31 15:09 | HP.PTREVAL ---
Re-Evaluation Intro: Angy Tran, VERA-C, It has been my pleasure to treat MASSIMO MARK over the last 18 visits for CADASIL, Stroke. Please see the progress note below for an update on the physical therapy plan of care! Subjective Subjective: Pt. reports no pain today. Pt. is still having some difficulty with walking with advancing his LLE. Pt. would like his control to be better and still complaining of increased shaking in his Leg. Objective Objective/Function: ROM: Pt. has good ROM in BLEs, a little stiffness in L ankle. MMT: PT. has with in 10% of L to R with hip flexor strength as well. GAIT: pt. ambulated 1050feet with SPC JOLENE. He still has limited L hip flexion and occasional difficulty with L foot clearance. He was wearing his AFO this date which did help. Pt. reports no pain and no major fatigue with gait. GAIT without AD: He has increased difficulty with advancing his LLE, (L worse than R). Pt. had difficulty with LLE motor control with advancing and with movements towards targets. Plan Plan Plan: Recerting patient x1 per week for 6 weeks. Focus on LLE motor control. pt. tends to move LLE in 1 movement, break into segments. Progress to movement towards targets to aid with proper gait and stability. Balance/Gait/Functional tests Balance/Special Test Scores Lower Extremity Functional Score: 26 TUG Test Time Seconds: 19.70 Tug Test: <20 sec.=mostly independent 6 Minute Walk Test: 219.46 meters / 740 feet Goals Goals Goal 1:: STG: Pt will amb. 1000ft with SPC and no LOB Goal Time Frame: 4-6 Weeks Goal Progress: Goal Met Goal 2:: STG: Pt will achieve <20s during 5xSTS with no UE use Goal Time Frame: 4-6 Weeks Goal Progress: Goal Met Goal 3:: STG: Pt will achieve <25s on TUG using cane Goal Time Frame: 4-6 Weeks Goal Progress: Goal Met Goal 4:: LTG: Pt will be able to amb. 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 with no LOB Goal Time Frame: 6-8 Weeks Goal Progress: Goal Met Goal 6:: NEW GOAL: Pt will demonstrate symmetrical hip flexion strength to improve L foot clearances Goal Time Frame: 4-6 Weeks Goal Progress: Progressing Anticipated Interventions Anticipated Interventions Patient/Client Instruction: Educate patient on: Plan of Care For the Purpose of:: To improve muscle performance and motor function, To improve ability to perform ADL's, To increase tolerance to activity/condition/position, To improve performance and independence with ADL's, To decrease level of supervision to perform tasks, To improve ability of physical actions for home/community/work/leisure, To improve gait and locomotor functions, To improve endurance, To improve balance, To improve safety with gait, To assume or resume ADL's, To reduce risk of recurrence, To improve safety, To foster healthy habits, To improve decision making, To improve self management, To prevent re-injury, To improve ability to perform tasks related to life management and To improve tolerance to ADL's Therapeutic Exercise to Include: Strength training, Endurance training, Balance training, Coordination, Body mechanics, Gait and locomotor training and Neuromotor development For the Purpose of:: To improve muscle performance and motor function, To improve ability to perform ADL's, To increase tolerance to activity/condition/position, To improve performance and independence with ADL's, To decrease level of supervision to perform tasks, To improve ability of physical actions for home/community/work/leisure, To improve gait and locomotor functions, To improve endurance, To improve balance, To improve safety with gait, To assume or resume ADL's, To reduce risk of recurrence, To improve safety, To improve health and function, To foster healthy habits, To improve decision making, To prevent re-injury and To improve ability to perform tasks related to life management Functional Training to Include: Gait training For the Purpose of:: To improve ability of physical actions for home/community/work/leisure, To improve gait and locomotor functions, To improve endurance, To improve balance, To improve safety with gait, To improve safety, To improve self management, To improve ability to perform tasks related to life management and To improve tolerance to ADL's Manual Therapy Techniques to Include: Soft tissue mobilization For the Purpose of:: To decrease pain, To improve nutrient delivery to tissue, To improve muscle performance and motor function and To improve ability to perform ADL's Assistive Devices: Cane Orthotics: Brace For the Purpose of:: To improve balance, To improve safety with gait, To improve safety, To improve self management and To improve ability to perform tasks related to life management Cryotherapy (ice pack, ice massage): Yes Thermo therapy (hot pack): Yes For the Purpose of:: To decrease pain and To decrease swelling/inflammation Re-Evaluation Ending Re-evaluation ending: Please do not hesitate to contact me at [phone] by phone or if you have questions or concerns regarding this new plan of care! Sincerely, ADDISON FitzgeraldT
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
--- NOTE | 2024-04-07 11:33 | HP.PTREVAL_ITS ---
Re-Evaluation Intro: Angy Tran, VERA-C, It has been my pleasure to treat MASSIMO MARK over the last 29 visits for CADASIL, Stroke. Please see the progress note below for an update on the physical therapy plan of care! Subjective Subjective: Pt. reports having some L sided LBP, worse with standing and walking. No pain with sitting. Objective Objective/Function: Pt has marked increase in L sided LBP. He reports going down his leg to his calf at times, mostly with standing and walking. He is to follow up with physician this week. Pt. reports being limited with his walking upto ~100' limited secondary to pain. He is still ataxic with walking with SPC, but improves with his cane. TU.7sec. At this point in time I would like him to follow up with physician to determine best course of action for his back. His symptoms are really limiting his ability to work on balance and strengthening exercises for his ataxia. Plan Plan Plan: I would like Qasim to follow up with physician about his radiating LBP. This is really impacting our ability to work on gait and balance. I would this to be improved prior to to getting back to balance/gait training. Balance/Gait/Functional tests Balance/Special Test Scores Functional Gait Assessment Score: 10 % Disability: 66.6700 Lower Extremity Functional Score: 24 TUG Test Time Seconds: 26.7 Tug Test: 20-30sec.=variable mobility 6 Minute Walk Test: unable to complete this date due to L back and leg pain Goals Goals Goal 1:: STG: Pt will amb. 1000ft with SPC and no LOB. Goal Time Frame: 4-6 Weeks Goal Progress: Goal Met Goal 2:: STG: Pt will achieve <20s during 5xSTS with no UE use Goal Time Frame: 4-6 Weeks Goal Progress: Goal Met Goal 3:: STG: Pt will achieve <25s on TUG using cane Goal Time Frame: 4-6 Weeks Goal Progress: Goal Met Goal 4:: LTG: Pt will be able to amb. 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 with no LOB Goal Time Frame: 6-8 Weeks Goal Progress: Goal Met Goal 6:: NEW GOAL: Pt will demonstrate symmetrical hip flexion strength to improve L foot clearances Goal Time Frame: 4-6 Weeks Goal Progress: Progressing Anticipated Interventions Anticipated Interventions Patient/Client Instruction: Educate patient on: Plan of Care For the Purpose of:: To improve muscle performance and motor function, To improve ability to perform ADL's, To increase tolerance to activity/condition/position, To improve performance and independence with ADL's, To decrease level of supervision to perform tasks, To improve ability of physical actions for home/community/work/leisure, To improve gait and locomotor functions, To improve endurance, To improve balance, To improve safety with gait, To assume or resume ADL's, To reduce risk of recurrence, To improve safety, To foster healthy habits, To improve decision making, To improve self management, To prevent re-injury, To improve ability to perform tasks related to life management and To improve tolerance to ADL's Therapeutic Exercise to Include: Strength training, Endurance training, Balance training, Coordination, Body mechanics, Gait and locomotor training and Neuromotor development For the Purpose of:: To improve muscle performance and motor function, To improve ability to perform ADL's, To increase tolerance to activity/condition/position, To improve performance and independence with ADL's, To decrease level of supervision to perform tasks, To improve ability of physical actions for home/community/work/leisure, To improve gait and locomotor functions, To improve endurance, To improve balance, To improve safety with gait, To assume or resume ADL's, To reduce risk of recurrence, To improve safety, To improve health and function, To foster healthy habits, To improve decision making, To prevent re-injury and To improve ability to perform tasks related to life management Functional Training to Include: Gait training For the Purpose of:: To improve ability of physical actions for home/commu nity/work/leisure, To improve gait and locomotor functions, To improve endurance, To improve balance, To improve safety with gait, To improve safety, To improve self management, To improve ability to perform tasks related to life management and To improve tolerance to ADL's Manual Therapy Techniques to Include: Soft tissue mobilization For the Purpose of:: To decrease pain, To improve nutrient delivery to tissue, To improve muscle performance and motor function and To improve ability to perform ADL's Assistive Devices: Cane Orthotics: Brace For the Purpose of:: To improve balance, To improve safety with gait, To improve safety, To improve self management and To improve ability to perform tasks related to life management Cryotherapy (ice pack, ice massage): Yes Thermo therapy (hot pack): Yes For the Purpose of:: To decrease pain and To decrease swelling/inflammation Re-Evaluation Ending Re-evaluation ending: Please do not hesitate to contact me at [phone] by phone or if you have questions or concerns regarding this new plan of care! Sincerely, ADDISON FitzgeraldT
== END 2024-04-07 19:00 | disposition home or self-care (01) ==
LOC: PT 10:00
PROVIDERS: PCP Registered Nurse; Referring Provider Registered Nurse; Visit Provider Registered Nurse
DX: I67.850 Cerebral autosomal dominant arteriopathy with subcortical infarcts and leukoencephalopathy (principal)
CPT/HCPCS: 97110; 97116; 97162; 97164; 97166; 97530

== ENCOUNTER 2024-06-24 23:29 | Emergency (ER) | payer MEDICAID, SELFPAY ==
[2024-06-24 23:32] VITALS: BP 132/82; PULSE 73; RESP 18; TEMP 36.1; O2SAT 98; BMI 32.4
[2024-06-24 23:35] VITALS: PULSE 79; RESP 24; O2SAT 98
[2024-06-24 23:36] VITALS: BMI 32.4
--- NOTE | 2024-06-24 23:42 | EKG12_ITS ---
Test Reason : DYSRHYTHMIA Blood Pressure : */* mmHG Vent. Rate : 76 BPM Atrial Rate : 76 BPM P-R Int : 158 ms QRS Dur : 92 ms QT Int : 382 ms P-R-T Axes : 60 -41 35 degrees QTcB Int : 429 ms Normal sinus rhythm Left axis deviation Inferior infarct , age undetermined Abnormal ECG Confirmed by CARLOS ROSENTHAL, MARI ([id number]), publications editor ARBEN WANG ([id number]) on 06/25/2024 8:58:57 AM Referred By: Confirmed By: MARI GONZALEZ MD
--- NOTE | 2024-06-24 23:43 | CT_ITS ---
STUDY: CTA HEAD AND NECK WITH CONTRAST REASON FOR EXAM: Male, 53 years old patient with acute neurologic deficit. Acute stroke suspected. RADIATION DOSAGE (If Supplied By Facility): CTDIvol = ( 32.73 ) mGy, DLP = ( 1645.57 ) mGycm TECHNIQUE: CT angiography was performed with a multi-detector CT scanner. Data acquisition was obtained from the skull base through the vertex following intravenous administration of IV 75mL [id number]-[id number]. MIP images were reconstructed from the axial data set. Post-processing of the angiographic images was performed, with multiplanar reformation and 3D reconstruction. Individualized dose optimization techniques were used for this CT. COMPARISON: No relevant priors. FINDINGS: Normal bilateral petrous carotid arteries. Normal right cavernous carotid artery with a normal supraclinoid bifurcation. There is noncalcified plaque formation of the left cavernous carotid artery, with a mild stenosis (less than 50%). Normal right A1 segments of the anterior cerebral artery. Normal left A1 segments of the anterior cerebral artery. Normal intact anterior communicating artery (ACOM). Normal bilateral A2 segments of the anterior cerebral arteries. There is irregularity of the right M1 and M2 branches with minimal luminal narrowing, suggesting atherosclerotic plaque formation, without an occlusion. There is irregularity of the left M1 and M2 branches with minimal luminal narrowing, suggesting atherosclerotic plaque formation, without an occlusion. There is non-visualization of the right posterior communicating artery (PCOM). There is non-visualization of the left posterior communicating artery (PCOM). Normal bilateral vertebral arteries. Normal basilar artery with a normal basilar bifurcation. The visualized bilateral superior cerebellar (SCA) arteries are normal. Normal bilateral P1, P2 and visualized P3 segments of the posterior cerebral arteries. There is no demonstrated aneurysm of the [place]. There is no demonstrated abnormality of the visualized brain. AORTIC ARCH: Normal visualized aortic arch. Normal origins of the brachiocephalic, left common carotid, and left subclavian arteries. RIGHT CAROTID ARTERIES: Normal right common carotid artery (CCA). Normal right common carotid bulb. Normal origin of the right internal carotid (ICA) artery without a hemodynamically significant stenosis. Normal visualized cervical portion of the right internal carotid artery. Normal origin of the right external carotid artery (ECA). LEFT CAROTID ARTERIES: Normal left common carotid artery (CCA). Normal left common carotid bulb. Normal origin of the left internal carotid (ICA) artery without a hemodynamically significant stenosis. Normal visualized cervical portion of the left internal carotid artery. Normal origin of the left external carotid artery (ECA). VERTEBRAL ARTERIES: Normal bilateral vertebral arteries. NECK ANATOMY: Lung apices appear clear. The thyroid has a grossly normal appearance. Visualized parotid and submandibular glands are grossly normal appearance. Nasopharynx, oropharynx, hypopharynx and larynx are grossly normal in appearance. There is a mucous retention cyst and mucosal thickening of right maxillary sinus. There are degenerative changes cervical spine with disc space narrowing at C5-6 and C7-T1. IMPRESSION: No CTA evidence for hemodynamically significant stenosis, thrombosis, dissection or aneurysm. STUDY: CT BRAIN WITHOUT CONTRAST REASON FOR EXAM: Male, 53 years old patient with acute neurologic deficit. Acute stroke suspected. RADIATION DOSAGE (If Supplied By Facility): CTDIvol = ( 32.73 ) mGy, DLP = ( 1645.57 ) mGycm TECHNIQUE: Transaxial CT imaging of the brain was performed without administration of intravenous contrast material. Individualized dose optimization techniques were used for this CT. COMPARISON: CT of the head dated August 05, 2023. FINDINGS: Normal soft tissue structures. Normal calvarium. Normal size ventricles and extra-axial spaces for the patient''s age. There is extensive confluent abnormally decreased attenuation throughout the white matter similar to previous CT. Normal basal ganglia and thalami. Normal brainstem. Normal cerebellum. There is no intracranial hemorrhage. There are no findings of an acute ischemic infarction. Normal visualized paranasal sinuses. CT/CTA Head AND Neck W/ Contrast IMPRESSION: 1. No CT evidence for acute intracranial hemorrhage. 2. Extensive abnormal white matter disease. Has the patient had whole brain radiation? Electronically Signed: Nayla Weems MD at 1:29 EST ,
--- NOTE | 2024-06-24 23:44 | ED.VIS.STROK ---
HPI History of Present Illness Chief Complaint: Neuro S/Sx Informant: patient and spouse/S.O. Onset/Context/Timing Onset: Today Context: Gradual Onset Timing: Continuous Quality and Location: Negative for Right Facial Droop, Left Facial Droop, Right Face Paresthesia, Left Face Parasthesia, Right Arm Parasthesia, Left Arm Parasthesia, Right Leg Parasthesia, Left Leg Parasthesia, Right Arm Weakness, Left Arm Weakness, Right Leg Weakness, Left Leg Weakness, Slurred Speech, Expressive Aphasia, Receptive Aphasia or Difficulty with Ambulation Current Severity: Mild Maximum Severity: Mild Associated Symptoms Associated Symptoms: Positive for Headache; Negative for Nausea, Vomiting or Chest Pain Narrative Narrative: 53-year-old male prior history of strokes. States feels like I am having another stroke. Says he is having a headache and is tired. He denies any vision change or change in his speech. He has chronic difficulty walking but it is no worse or different today. Prior similar symptoms: Yes Recent Illness/Hospitalization: Yes PFSH PFSH Medical History Hypothyroidism Left shoulder pain CADASIL Stroke Home Medications ?Medication ?Instructions ?Recorded ?Last Taken ?Type bupropion HCl 300 mg 24 hr tablet, 300 mg PO DAILY 03/09/24 Unknown History extended release escitalopram oxalate 10 mg tablet 5 mg PO DAILY 03/09/24 Unknown History ondansetron 4 mg disintegrating 4 mg PO Q8H PRN nausea and 03/26/24 Unknown Rx tablet vomiting #12 tabs oxycodone-acetaminophen 5 mg-325 1 tab PO Q6H PRN pain 3 days #12 03/26/24 Unknown Rx mg tablet (Endocet) tabs Allergy/AdvReac Type Severity Reaction Status Date / Time Penicillins Allergy Other Verified 03/26/24 15:35 Surgical History Hx of tonsillectomy Social History Smoking Status: Never smoker ROS ROS ED ROS Narrative Denies recent illness. Constitutional Constitutional ED: Denies chills or fever(s) Eyes Eyes: Denies blurry vision ENT ENT ED: Denies ear pain Cardiovascular Cardiovascular: Denies chest pain Respiratory/Chest Respiratory/Chest: Denies cough Gastrointestinal Gastrointestinal: Denies abdominal pain Genitourinary Genitourinary ED: Denies dysuria Musculoskeletal Musculoskeletal: Denies arthralgias Integumentary Denies abscess Neurologic Neurologic: Reports headache(s) Psychiatric Psychiatric: Denies anxiety Endocrine Endocrinology: Denies polydipsia Hematologic/Lymphatic Hematologic/Lymphatic: Denies easy bleeding Allergic/Immunologic Allergic/Immunologic ED: Denies mouth swelling EXAM Physical Exam Narrative Exam Narrative: 53-year-old male vital signs are stable afebrile. H EENT exam unremarkable. Pupils round react to light. Extra motions are intact. No facial droop or weakness. No change in speech. No trauma. Neck nontender. Lungs clear to auscultation bilaterally. Heart regular rhythm rate about 70 no murmur. Chest wall ribs nontender. Abdomen soft nontender. Moving all 4 extremities. 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 Dorsi plantarflexion intact. Fingertip to nose within normal limits. No drift of either upper or lower extremities. NIH is 0 lying in bed. I have not gotten him up to walk. Const Vital Signs: 06/24/24 23:32 06/24/24 23:35 06/24/24 23:45 Temperature 97 F L Temperature Source Temporal Pulse Rate 73 79 78 Respiratory Rate 18 24 H 26 H Blood Pressure 132/82 H Blood Pressure Mean 98 Pulse Ox 98 98 Oxygen Delivery Method 06/24/24 23:53 06/24/24 23:53 06/25/24 00:01 Temperature Temperature Source Pulse Rate 82 Respiratory Rate 22 H Blood Pressure 137/94 H Blood Pressure Mean 105 Pulse Ox 96 Oxygen Delivery Method Room Air 06/25/24 00:09 06/25/24 00:15 06/25/24 00:30 Temperature Temperature Source Pulse Rate 85 78 75 Respiratory Rate 19 H 17 23 H Blood Pressure 122/89 H Blood Pressure Mean 99 Pulse Ox 99 95 Oxygen Delivery Method 06/25/24 00:45 06/25/24 01:00 06/25/24 01:15 Temperature Temperature Source Pulse Rate 77 77 Respiratory Rate 21 H 24 H Blood Pressure 123/85 H Blood Pressure Mean 95 Pulse Ox 96 98 Oxygen Delivery Method Positive well nourished and well developed; Negative for cachectic, contractures or unkempt General Appearance ED: well developed and NAD; Negative for unkempt, cachectic or contractures Nutritional Appearance: Negative for cachectic HEENT Reports moist mucous membranes; Denies dry mucous membranes atraumatic; Negative for trauma Mouth ED: No dry mucous membranes Mouth: No dry mucous membranes Eyes PERRL and EOMs intact bilaterally General Eye ED: Negative for pale conjunctiva or scleral icterus Neck no lymphadenopathy, supple and no JVD General: Negative for tenderness Chest Wall inspection of chest normal and palpation of chest normal Resp normal respiratory effort and clear to auscultation bilaterally Effort and Inspection: Negative for retractions Auscultation: Negative for rales, rhonchi, wheezes or diminished lung sounds Cardio no murmurs Rate: regular rate Rhythm: regular rhythm GI normal to inspection, nondistended, normoactive bowel sounds, soft to palpation, non-tender, non-distended and no masses Inspection: Negative for abdominal distention Auscultation: normoactive bowel sounds Palpation: Negative for tender, guarding or rebound tenderness present Back/Spine no CVA tenderness General Back: Negative for CVA tenderness Cervical Spine: Negative for cervical spine tenderness Thoracic Spine / Upper Back: Negative for thoracic spinal tenderness Lumbar Spine / Lower Back: Negative for lumbar spinal tenderness Extremity normal to inspection General Extremety ED: Negative for deformity, edema or tenderness General Extremity: Negative for deformity or edema Neuro oriented x3 and CN's II-XII intact bilaterally Sensorium / Orientation: alert, oriented to person, oriented to place and oriented to time; Negative for orientation impaired, confused, lethargic or stuporous Speech: speech normal Gait (Neuro): normal gait Motor Exam: strength 5/5 throughout Psych mental status grossly normal Appearance: Negative for unkempt Attitude: No agitated Mood & Affect: Negative for depressed, anxious or tearful Attention / Concentration: Negative for other Skin no wounds General Skin Exam: Negative for jaundice Lesions: no lesions Rashes: no rashes Trauma: Negative for abrasion, laceration or puncture MDM MDM MDM Narrative Medical decision making narrative: 53-year-old male rule out stroke. Exam benign. Stroke workup. Patient is not a tPA candidate. Repeat exam patient is doing well at 1:28 AM. He has been ambulating in the hallway. That is his baseline. He has an abnormal gait but that is chronic from prior strokes. It is no worse tonight. Repeat neurologic exam unchanged from prior. NIH lying in bed remains normal. And 0. History & Record Review Discussion w/independent historian: Patient and Family Additional record(s) reviewed:: Prior inpatient record, Prior outpatient record, Prior ED visit and Prior labs Lab Data Attestation: I reviewed the patient's lab results. Lab results narrative: CBC shows normal white count 8. H&H of 15 and 46. Platelets 230. PT, INR and PTT are 13, 1 and 21. Troponin is 4. BMP shows a gap of 5. Normal BUN and creatinine. Glucose 115. Labs: Laboratory Results - last 24 hr 06/24/24 06/24/24 06/25/24 23:48 23:48 00:20 WBC Cancelled 8.3 Corrected WBC Cancelled RBC Cancelled 4.99 Hgb Cancelled 15.9 Hct Cancelled 46.6 MCV Cancelled 93.4 MCH Cancelled 31.9 MCHC Cancelled 34.1 RDW Std Deviation Cancelled 44.2 H RDW Coeff of Yevgeniy Cancelled 13.0 Plt Count Cancelled 230 MPV Cancelled 9.6 Immature Gran % (Auto) Cancelled 1.800 H Neut % (Auto) Cancelled 51.9 Lymph % (Auto) Cancelled 28.7 Summers % (Auto) Cancelled 14.1 H Eos % (Auto) Cancelled 2.9 Baso % (Auto) Cancelled 0.6 Absolute Neuts (auto) Cancelled 4.3 Absolute Lymphs (auto) Cancelled 2.38 Total Counted Cancelled Neutrophils % (Manual) Cancelled Band Neutrophils % Cancelled Lymphocytes % (Manual) Cancelled Monocytes % (Manual) Cancelled Eosinophils % (Manual) Cancelled Basophils % (Manual) Cancelled Metamyelocytes % Cancelled Myelocytes % Cancelled Promyelocytes % Cancelled Blast Cells % Cancelled Plasma Cell % (Manual) Cancelled Other Cells % Cancelled Nucleated RBC % Cancelled 0 Nucleated RBCs/100 WBC Cancelled Differential Comment Cancelled Diff Path Review Cancelled Hypersegmented Neuts Cancelled Atypical Lymphocytes Cancelled Reactive Lymphocytes Cancelled Smudge Cells Cancelled Toxic Granulation Cancelled Toxic Vacuolation Cancelled Dohle Bodies Cancelled Juliann Rods Cancelled Platelet Estimate Cancelled Plt Morphology Comment Cancelled RBC Morphology Cancelled Cancelled Polychromasia Cancelled Hypochromasia Cancelled Basophilic Stippling Cancelled Anisocytosis Cancelled Microcytosis Cancelled Macrocytosis Cancelled Spherocytes Cancelled Sickle Cells Cancelled Target Cells Cancelled Tear Drop Cells Cancelled Ovalocytes Cancelled Stomatocytes Cancelled Ravi-Villalba Bodies Cancelled Carbon Cells Cancelled Bite Cells Cancelled Crenated Cell Cancelled Acanthocytes (Spur) Cancelled Rouleaux Cancelled Schistocytes Cancelled PT 13.6 INR 1.0 APTT 21.7 L Sodium 138 Potassium 3.8 Chloride 107 Carbon Dioxide 26.0 Anion Gap 5 BUN 18 Creatinine 1.25 Estim Creat Clear Calc 82.53 Est GFR (MDRD) Af Amer 77 Est GFR (MDRD) Non-Af 64 BUN/Creatinine Ratio 14.4 Glucose 115 H Calcium 9.1 Troponin I High Sens 4 Radiography Chest X-Ray - ED: 1 View, Read by ED Physician, Heart, Lungs, Mediastinum, Bony Structures, No Acute Disease and Chronic Changes Diagnostic Testing: Clinical Impression(s) from Imaging Studies Head/Neck CTA 06/24/24 23:43 IMPRESSION: 1. No CT evidence for acute intracranial hemorrhage. 2. Extensive abnormal white matter disease. Has the patient had whole brain radiation? Electronically Signed: Nayla Weems MD at 1:29 EST Reading Location ID and State: [facility] / [place] , Service support , Chest x-ray, portable, single view interpreted by myself shows no acute abnormality. Normal cardiac silhouette. Normal lung zamudio. Rhythm Strip Rhythm Strip: Sinus Rhythm Rate: 76 Ectopy: None EKG Initial EKG: Attestation: I personally reviewed and interpreted this EKG as follows: Interpretation: Sinus Rhythm Comments: Normal sinus rhythm rate of 76 no acute signs of DC or ischemia Discharge Plan Triage Chief Complaint: Neuro S/Sx ED Provider: Oleg Martin Dx/Rx/DC Orders Clinical Impression: Headache, Fatigue, History of stroke Instructions: ED Headache Unspecified Prescriptions: No Action escitalopram oxalate 10 mg tablet 5 mg PO DAILY bupropion HCl 300 mg tablet extended release 24 hr 300 mg PO DAILY ondansetron 4 mg tablet,disintegrating 4 mg PO Q8H PRN (Reason: nausea and vomiting) Qty: 12 0RF oxycodone-acetaminophen [Endocet] 5-325 mg tablet 1 tab PO Q6H PRN (Reason: pain) 3 Days Qty: 12 0RF Primary Care Provider: Angy Tran NP Referrals: Angy Tran NP, ART MANAGER-[facility] [Primary Care Provider] - 3-5 Days if not improving Activity Restrictions/Additional Instructions: CAT scan the labs look good. No acute signs of stroke. Outpatient follow-up with your primary care provider. Print Language: Thai Disposition Disposition: Home, Self Care
[2024-06-24 23:45] VITALS: PULSE 78; RESP 26
[2024-06-24 23:53] VITALS: PULSE 82; RESP 22; O2SAT 96
[2024-06-25] VITALS (8 sets, daily range): BP systolic 122–137; BP diastolic 61–94; PULSE 75–85; RESP 16–24; TEMP 36.8; O2SAT 95–99
--- NOTE | 2024-06-25 | RAD_ITS ---
STUDY: X-RAY CHEST REASON FOR EXAM: Male, 53 years old patient with acute neurologic deficit. Acute stroke suspected. TECHNIQUE: Single AP portable view of the chest. COMPARISON: August 05, 2023. FINDINGS: Cardiac monitoring leads are present. The lungs are expanded. There are prominent bronchovascular markings in both lungs. There is no demonstrated pleural abnormality. Normal size heart. Normal mediastinum and man. There is prominence of the pulmonary hilar arteries with peripheral pulmonary vascular congestion. There is atherosclerotic tortuosity of the aortic arch and descending thoracic aorta. There are diffuse degenerative changes of the visualized thoracic spine. Normal visualized ribs, clavicles, and shoulders. There is no demonstrated abnormality of the visualized soft tissue structures of the upper abdomen. RAD/Chest 1 View IMPRESSION: Mild pulmonary vascular congestion. Electronically Signed: Nayla Weems MD at 1:32 EST ,
[2024-06-25 00:08] LABS: Partial Thromboplast Time 21.7 Seconds (24.1-36.2)
[2024-06-25 00:16] LABS: Anion Gap 5 (5-15); BUN 18 mg/dL (7-18); BUN/Creat Ratio 14.4 RATIO (10-20); Calcium,Total 9.1 mg/dL (8.5-10.1); Chloride 107 mmol/L (98-107); Creatinine, Serum 1.25 mg/dL (0.70-1.30); EST Glomerular Filtration Rate 64 mL/min (>60); Est Glom Filt Rate - Afr Amer 77 mL/min (>60); Estimated Creatinine Clearance 82.53 ml/min; Glucose 115 mg/dL (74-106); Potassium 3.8 mmol/L (3.5-5.1); Sodium Level 138 mmol/L (136-145); Troponin-I HS 4 pg/mL (3.0-78.0)
[2024-06-25 00:17] LABS: Prothrombin Time (Protime)PT. 13.6 SECONDS (11.7-14.9)
--- NOTE | 2024-06-25 00:23 | ED.RN ---
per Dr. love, we can cancel NIH
[2024-06-25 00:32] LABS: Absolute Lymphocyte Count 2.38 X10^3/uL (0.83-4.51); Absolute Neutrophil Count 4.3 X10^3/uL (2.0-7.7); Basophil# 0.05 X10^3/uL; Basophil% 0.6 % (0-1); Eosinophil# 0.24 X10^3/uL; Eosinophils% 2.9 % (0-5); Hematocrit 46.6 % (40-54); Hemoglobin 15.9 g/dL (13.0-16.5); Lymphocyte # 2.38 X10^3/ul (0.83-4.51); Lymphocyte % 28.7 % (19-41); Mean Corp Hgb Conc 34.1 g/dL (32-36); Mean Corpuscular Hgb 31.9 pg (27.0-32.0); Mean Corpuscular Volume 93.4 fL (80-94); Mean Platelet Vol. 9.6 fl (6.2-12.0); Monocyte# 1.17 X10^3/uL; Monocyte% 14.1 % (0-10); NRBC Flagged by Analyzer 0 % (0-5); Neutrophil % 51.9 % (47-70); Platelet Count 230 K/mm3 (150-450); RBC Distribution Width SD 44.2 fl (35.1-43.9); Red Blood Count 4.99 M/mm3 (4.6-6.2); White Blood Count 8.3 K/mm3 (4.4-11.0)
== END 2024-06-25 01:44 | disposition home or self-care (01) ==
PROVIDERS: Emergency Provider Emergency Medicine; PCP Registered Nurse; Visit Provider Emergency Medicine
DX: R51.9 Headache, unspecified (principal); R53.83 Other fatigue; Z86.73 Personal history of transient ischemic attack (TIA), and cerebral infarction without residual deficits
CPT/HCPCS: 70496; 70498; 71045; 80048; 84484; 85025; 85610; 85730; 93005; 99284; Q9967; A4216

== ENCOUNTER 2024-06-28 19:28 | Inpatient (IN) | payer MEDICAID, SELFPAY ==
[2024-06-28 19:30] VITALS: BP 150/106; PULSE 85; RESP 18; TEMP 37.1; O2SAT 98; BMI 32.8
[2024-06-28 19:33] VITALS: BMI 32.8
--- NOTE | 2024-06-28 19:36 | ED.RN ---
charge lpn spoke with physician and states not calling stroke alert on EMS arrival.
--- NOTE | 2024-06-28 19:38 | ED.RN ---
pt arrives without sister who is listed as POA and without . states he had multiple strokes and is not able to explain why the EMS brought him to the ED. crying when trying to explain why he is in ED.
--- NOTE | 2024-06-28 19:52 | ED.RN ---
spoke with sister, VINI who states she will be in to be with patient. pt lives alone
--- NOTE | 2024-06-28 20:03 | ED.RN ---
ER physicians Dr. Meza and Dr. Steiner notified of pt. Per Dr. Steiner no stroke alert warranted.
--- NOTE | 2024-06-28 20:20 | EDS_ITS ---
HPI History of Present Illness Chief Complaint: Neuro S/Sx Informant: patient Onset/Context/Timing Onset: Today Timing: Continuous Quality: Pressure Location: Generalized, but worse over the frontal area Worsened by: Nothing Relieved by: Nothing Narrative Narrative: Patient presents with confusion and headache that began today. Family stated that he was talking normally last night. Family states that they called him earlier this afternoon and he was talking like he was confused and was not making any sense at that time. Patient states his headache is diffuse across his entire head but worse over the frontal area. Patient states nothing makes it worse and nothing makes it better. Patient denies any fevers or chills. Patient denies any nausea or vomiting. Patient does not always answer questions appropriately. [facility] Medical History Obesity Anxiety and depression History of multiple strokes Hypothyroidism CADASIL Home Medications ?Medication ?Instructions ?Recorded ?Last Taken ?Type bupropion HCl 300 mg 24 hr tablet, 300 mg PO DAILY 03/09/24 Unknown History extended release escitalopram oxalate 10 mg tablet 5 mg PO DAILY 03/09/24 Unknown History ondansetron 4 mg disintegrating 4 mg PO Q8H PRN nausea and 03/26/24 Unknown Rx tablet vomiting #12 tabs oxycodone-acetaminophen 5 mg-325 1 tab PO Q6H PRN pain 3 days #12 03/26/24 Unknown Rx mg tablet (Endocet) tabs Allergy/AdvReac Type Severity Reaction Status Date / Time Penicillins Allergy Other Verified 06/28/24 19:29 Surgical History Hx of tonsillectomy Social History household members: spouse Smoking Status: Never smoker alcohol intake: never substance use type: does not use ROS ROS ED Review of Systems ROS Unobtainable: due to mental status Constitutional Constitutional ED: Denies chills or fever(s) Eyes Eyes: Denies blurry vision or change in vision ENT ENT ED: Denies rhinorrhea or sore throat Cardiovascular Cardiovascular: Denies chest pain or palpitations Respiratory/Chest Respiratory/Chest: Denies cough or dyspnea Gastrointestinal Gastrointestinal: Denies nausea or vomiting Genitourinary Genitourinary ED: Denies dysuria or hematuria Musculoskeletal Musculoskeletal: Denies back pain or neck pain Integumentary Denies abscess or rash Neurologic Neurologic: Reports headache(s); Denies weakness Allergic/Immunologic Allergic/Immunologic ED: Denies mouth swelling or urticaria EXAM Physical Exam Const Vital Signs: 06/28/24 19:30 06/28/24 21:17 06/28/24 23:00 Temperature 98.8 F Temperature Source Oral Pulse Rate 85 82 86 Respiratory Rate 18 24 H 13 Blood Pressure 150/106 H 160/93 H 175/115 H Blood Pressure Mean 120 115 135 Pulse Ox 98 98 94 Oxygen Delivery Method Room Air Room Air 06/28/24 23:26 Temperature 98.2 F Temperature Source Pulse Rate 81 Respiratory Rate 14 Blood Pressure 153/95 H Blood Pressure Mean 114 Pulse Ox 99 Oxygen Delivery Method Positive well nourished and well developed General Appearance ED: well developed and NAD HEENT Reports moist mucous membranes Eyes PERRL and EOMs intact bilaterally Neck supple and no JVD Chest Wall inspection of chest normal and palpation of chest normal Resp normal respiratory effort and clear to auscultation bilaterally Cardio regular rate and regular rhythm GI non-tender and non-distended Palpation: soft Extremity normal to inspection General Extremety ED: Negative for edema or tenderness General Extremity: Negative for edema Neuro CN's II-XII intact bilaterally and no sensory deficits noted Neuro Narrative: Patient is alert to person only. Patient does not know where he is at or what year it is. Sensorium / Orientation: alert and orientation impaired Motor Exam: strength 5/5 throughout Skin no rashes or lesions noted MDM MDM MDM Narrative Medical decision making narrative: Differential diagnosis includes infection, hepatic encephalopathy, stroke, electrolyte abnormality, hypertensive urgency, normal pressure hydrocephalus, alcohol intoxication, cardiac dysrhythmia, cardiac ischemia, and substance abuse. CT scan of the brain will be obtained to assess for intracranial bleeding, stroke, and normal pressure hydrocephalus. CBC will be obtained to assess for leukocytosis and anemia. Comprehensive metabolic profile will be obtained to assess for electrolyte abnormality, hepatic function, and renal function. Serum ammonia level will be obtained to assess for hepatic encephalopathy. EKG will be obtained to assess for cardiac dysrhythmia and cardiac ischemia. High-sensitivity troponin will be obtained to assess for cardiac ischemia. Urine drug screen will be obtained to assess for substance abuse. Serum alcohol level will be obtained to assess for alcohol intoxication. History & Record Review Additional record(s) reviewed:: Prior ED visit and Prior labs Lab Data Attestation: I reviewed the patient's lab results. Lab results narrative: CBC was reviewed and was within normal limits. Comprehensive metabolic profile was reviewed and was within normal limits. Serum ammonia level was reviewed and was normal at 16. PT with INR and PTT were reviewed and were within normal limits. Urinalysis was reviewed. There is no evidence of urinary tract infection or hematuria. Urine tox screen was reviewed and was negative. Serum alcohol level was reviewed and was less than 3.0. Labs: Laboratory Results - last 24 hr 06/28/24 06/28/24 06/28/24 19:32 20:40 21:51 WBC 7.3 RBC 5.56 Hgb 16.9 H Hct 52.0 MCV 93.5 MCH 30.4 MCHC 32.5 RDW Std Deviation 43.8 RDW Coeff of Yevgeniy 12.7 Plt Count 295 MPV 10.3 Immature Gran % (Auto) 0.300 Neut % (Auto) 51.4 Lymph % (Auto) 35.6 Green % (Auto) 10.7 H Eos % (Auto) 1.6 Baso % (Auto) 0.4 Absolute Neuts (auto) 3.7 Absolute Lymphs (auto) 2.59 Nucleated RBC % 0 PT 13.6 INR 1.0 APTT 30.2 Sodium 142 Potassium 3.5 Chloride 106 Carbon Dioxide 29.0 Anion Gap 7 BUN 13 Creatinine 1.05 Estim Creat Clear Calc 98.78 Est GFR (MDRD) Af Amer 94 Est GFR (MDRD) Non-Af 78 BUN/Creatinine Ratio 12.4 Glucose 90 Calcium 9.4 Total Bilirubin 0.60 AST 15 ALT 40 Alkaline Phosphatase 93 Ammonia 16.0 Troponin I High Sens 4 Total Protein 7.8 Albumin 3.7 Globulin 4.1 Albumin/Globulin Ratio 0.9 Urine Color Urine Clarity Urine pH Ur Specific [place] Urine Protein Urine Glucose (UA) Urine Ketones Urine Occult Blood Urine Nitrite Urine Bilirubin Urine Urobilinogen Ur Leukocyte Esterase Urine RBC Urine WBC Ur Squamous Epith Cells Urine Bacteria Urine Mucus Urine Opiates Screen NEGATIVE Urine Methadone Screen NEGATIVE Ur Barbiturates Screen NEGATIVE Ur Phencyclidine Scrn NEGATIVE Ur Amphetamines Screen NEGATIVE MDMA (Ecstasy) Screen NEGATIVE U Benzodiazepines Scrn NEGATIVE Urine Cocaine Screen NEGATIVE U Cannabinoids Screen NEGATIVE Ur Drug Screen Comment Ethyl Alcohol < 3.0 06/28/24 21:55 WBC RBC Hgb Hct MCV MCH MCHC RDW Std Deviation RDW Coeff of Yevgeniy Plt Count MPV Immature Gran % (Auto) Neut % (Auto) Lymph % (Auto) Green % (Auto) Eos % (Auto) Baso % (Auto) Absolute Neuts (auto) Absolute Lymphs (auto) Nucleated RBC % PT INR APTT Sodium Potassium Chloride Carbon Dioxide Anion Gap BUN Creatinine Estim Creat Clear Calc Est GFR (MDRD) Af Amer Est GFR (MDRD) Non-Af BUN/Creatinine Ratio Glucose Calcium Total Bilirubin AST ALT Alkaline Phosphatase Ammonia Troponin I High Sens Total Protein Albumin Globulin Albumin/Globulin Ratio Urine Color Yellow Urine Clarity Clear Urine pH 5.0 Ur Specific [place] 1.025 Urine Protein 15 H Urine Glucose (UA) Normal Urine Ketones Negative Urine Occult Blood 10 H Urine Nitrite Negative Urine Bilirubin Negative Urine Urobilinogen Normal Ur Leukocyte Esterase Negative Urine RBC 5-10 SEEN Urine WBC 0 SEEN Ur Squamous Epith Cells 0-5 SEEN Urine Bacteria RARE Urine Mucus 2+ Urine Opiates Screen Urine Methadone Screen Ur Barbiturates Screen Ur Phencyclidine Scrn Ur Amphetamines Screen MDMA (Ecstasy) Screen U Benzodiazepines Scrn Urine Cocaine Screen U Cannabinoids Screen Ur Drug Screen Comment Ethyl Alcohol Radiography Chest X-Ray - ED: 2 View, Read by ED Physician, Read by Radiologist and No Acute Disease Diagnostic Testing: Clinical Impression(s) from Imaging Studies Brain CT 06/28/24 20:30 IMPRESSION: 1. No evidence of acute intracranial pathology. 2. Diffuse involutional changes and chronic ischemic small vessel white matter disease. AIDOC was utilized to assist in identifying pertinent positive findings. Electronically Signed: Cheikh Contreras MD at 22:14 EST , Chest X-Ray 06/28/24 20:42 IMPRESSION: No radiographic evidence of acute cardiopulmonary disease. Electronically Signed: Cheikh Contreras MD at 21:33 EST , CT scan of the brain was obtained. There is no acute intracranial abnormality. This was interpreted by the radiologist and was also independently reviewed by myself. PA and lateral chest x-ray was obtained. There are 2 views. On my independent interpretation, lung zamudio are clear. There is normal cardiac silhouette. Bon y thorax is normal. There is no acute process noted. Radiologist also interpreted the x-ray and agrees. EKG Initial EKG: Attestation: I personally reviewed and interpreted this EKG as follows: Interpretation: Sinus Rhythm (80) and No Acute Injury Pattern Comments: EKG was obtained. On my independent interpretation, it showed a normal sinus rhythm with a rate of 80. WV interval, QRS interval, and QTc intervals were all normal. There is left axis deviation at -35. There are no acute ST or T wave changes. Prior EKG tracings: available for review Prior: Unchanged (06/24/2024.) Management Discussion w/another healthcare provider: Hospitalist Treatment and Re-Evaluation :: Because of the last known well being approximately 24 hours ago, stroke team was not called. I did review his CTA of his head and neck from 4 days ago. This was basically unremarkable. Patient was advised of his findings. Patient still confused on place and time. Patient is starting to answer questions more appropriately however. Because of his altered mental status, I recommended admission to the hospital for further evaluation. Case was discussed with the hospitalist. She will admit the patient to her service. Patient understood and was agreeable with the plan. All questions were answered. Discharge Plan Triage Chief Complaint: Neuro S/Sx ED Provider: Axel Steiner Dx/Rx/DC Orders Clinical Impression: Altered mental status, Acute confusion Prescriptions: No Action escitalopram oxalate 10 mg tablet 5 mg PO DAILY bupropion HCl 300 mg tablet extended release 24 hr 300 mg PO DAILY ondansetron 4 mg tablet,disintegrating 4 mg PO Q8H PRN (Reason: nausea and vomiting) Qty: 12 0RF oxycodone-acetaminophen [Endocet] 5-325 mg tablet 1 tab PO Q6H PRN (Reason: pain) 3 Days Qty: 12 0RF Primary Care Provider: Angy Tran NP Referrals: Angy Tran NP, [employer] [Primary Care Provider] - Print Language: [place] Disposition Disposition: Acute [facility]
--- NOTE | 2024-06-28 20:30 | EKG12_ITS ---
Test Reason : DYSRHYTHMIA Blood Pressure : */* mmHG Vent. Rate : 80 BPM Atrial Rate : 80 BPM P-R Int : 160 ms QRS Dur : 90 ms QT Int : 368 ms P-R-T Axes : 58 -35 29 degrees QTcB Int : 424 ms Normal sinus rhythm Left axis deviation Inferior infarct (cited on or before 25-Jun-2024) Abnormal ECG Confirmed by CARLOS ROSENTHAL, MARI ([id number]), image editor ARBEN WANG ([id number]) on 06/30/2024 8:15:25 AM Referred By: Confirmed By: MARI GONZALEZ MD
--- NOTE | 2024-06-28 20:30 | CT_ITS ---
EXAM: CT HEAD WITHOUT INTRAVENOUS CONTRAST CLINICAL INDICATION: Confusion TECHNIQUE: Multiple axial images were obtained of the head without intravenous contrast. CTDIvol = ( 44.99 ) mGy, DLP = ( 829.85 ) mGycm This CT exam was performed using one or more of the following dose reduction techniques: automated exposure control, adjustment of the mA and/or kV according to patient size, and/or use of iterative reconstruction technique. COMPARISON: August 05, 2023 FINDINGS: BRAIN AND EXTRA-AXIAL SPACES: Periventricular small vessel ischemic change. No midline shift or hydrocephalus. Diffuse parenchymal atrophy. Old lacunar infarct involving the thalamus bilaterally and the posterior aspect of the right head of the caudate. Posterior fossa structures are unremarkable. Basal cisterns are patent. No acute intracranial hemorrhage, mass effect or edema. No evidence of acute cortical stroke. BONES/JOINTS: Unremarkable. No discrete lytic or blastic abnormalities. VASCULATURE: Atherosclerotic calcifications of the carotid siphons and vertebrobasilar arteries. SINUSES: Mild scattered paranasal sinus mucosal thickening. Mastoid air cells are clear. MASTOID AIR CELLS: See above. ORBITS: Visualized globes, extraocular muscles, optic nerves and retrobulbar fat appear unremarkable. CT/Brain/Head without Contrast IMPRESSION: 1. No evidence of acute intracranial pathology. 2. Diffuse involutional changes and chronic ischemic small vessel white matter disease. AIDOC was utilized to assist in identifying pertinent positive findings. Electronically Signed: Cheikh Contreras MD at 22:14 EST ,
--- NOTE | 2024-06-28 20:42 | RAD_ITS ---
EXAM: XR CHEST, 2 VIEWS CLINICAL INDICATION: Confusion TECHNIQUE: Frontal and lateral views of the chest. COMPARISON: August 05, 2023 FINDINGS: LUNGS AND PLEURAL SPACES: Unremarkable. No consolidation or edema. No pneumothorax. No effusion. HEART: Unremarkable. Cardiac silhouette not enlarged. MEDIASTINUM: Central airways and mediastinal contour are unremarkable. BONES/JOINTS: Unremarkable. No acute fracture. SOFT TISSUES: Unremarkable. RAD/Chest PA and Lateral IMPRESSION: No radiographic evidence of acute cardiopulmonary disease. Electronically Signed: Cheikh Contreras MD at 21:33 EST ,
[2024-06-28 20:49] LABS: Absolute Lymphocyte Count 2.59 X10^3/uL (0.83-4.51); Absolute Neutrophil Count 3.7 X10^3/uL (2.0-7.7); Basophil# 0.03 X10^3/uL; Basophil% 0.4 % (0-1); Eosinophil# 0.12 X10^3/uL; Eosinophils% 1.6 % (0-5); Hemoglobin 16.9 g/dL (13.0-16.5); Lymphocyte # 2.59 X10^3/ul (0.83-4.51); Lymphocyte % 35.6 % (19-41); Mean Corp Hgb Conc 32.5 g/dL (32-36); Mean Corpuscular Hgb 30.4 pg (27.0-32.0); Mean Corpuscular Volume 93.5 fL (80-94); Mean Platelet Vol. 10.3 fl (6.2-12.0); Monocyte# 0.78 X10^3/uL; Monocyte% 10.7 % (0-10); NRBC Flagged by Analyzer 0 % (0-5); Neutrophil # 3.74 X10^3/uL (2.7-7.7); Neutrophil % 51.4 % (47-70); Platelet Count 295 K/mm3 (150-450); RBC Distribution Width CV 12.7 % (11.6-14.6); RBC Distribution Width SD 43.8 fl (35.1-43.9); Red Blood Count 5.56 M/mm3 (4.6-6.2); White Blood Count 7.3 K/mm3 (4.4-11.0)
[2024-06-28 21:02] LABS: Partial Thromboplast Time 30.2 Seconds (24.1-36.2); Prothrombin Time (Protime)PT. 13.6 SECONDS (11.7-14.9)
[2024-06-28 21:12] LABS: ALB/GLOB Ratio 0.9 RATIO (0.9-2.4); AST(SGOT) 15 U/L (15-37); Alanine Aminotransfer ALT/SGPT 40 U/L (16-61); Albumin, Serum 3.7 g/dL (3.2-5.0); Alkaline Phosphatase 93 U/L (45-117); Anion Gap 7 (5-15); BUN 13 mg/dL (7-18); BUN/Creat Ratio 12.4 RATIO (10-20); Calcium,Total 9.4 mg/dL (8.5-10.1); Chloride 106 mmol/L (98-107); Creatinine, Serum 1.05 mg/dL (0.70-1.30); EST Glomerular Filtration Rate 78 mL/min (>60); Est Glom Filt Rate - Afr Amer 94 mL/min (>60); Estimated Creatinine Clearance 98.78 ml/min; Globulin 4.1 g/dL (2.2-4.2); Glucose 90 mg/dL (74-106); Potassium 3.5 mmol/L (3.5-5.1); Protein, Total 7.8 g/dL (6.4-8.2); Sodium Level 142 mmol/L (136-145); Troponin-I HS 4 pg/mL (3.0-78.0)
[2024-06-28 21:17] VITALS: BP 160/93; PULSE 82; RESP 24; O2SAT 98
[2024-06-28 21:20] LABS: Alcohol, Blood (Medical)-Serum < 3.0 mg/dL
[2024-06-28 21:59] LABS: White Blood Cells 0 SEEN /hpf (0-5)
[2024-06-28 22:05] LABS: Color, Urine Yellow (Yellow); Glucose, Dipstick Normal (Normal); Ketone-Dipstick Negative (Negative); Leukocyte Esterase-Dipstick Negative /ul (Negative); Nitrite-Dipstick Negative (Negative); Occult Blood-Urine 10 /ul (Negative); Protein-Dipstick 15 mg/dl (Negative); Specific Gravity, Urine 1.025 (1.002-1.030); Urine Bilirubin Dipstick Negative (Negative); Urine Clarity Clear (Clear); Urine Urobilinogen Normal (Normal)
[2024-06-28 22:21] LABS: Amphetamine Urine VISTA NEGATIVE (<1000 ng/mL); Barbiturate Urine VISTA NEGATIVE (< 200 ng/mL); Benzodiazepine Urine VISTA NEGATIVE (< 200 ng/mL); Cocaine Urine VISTA NEGATIVE (< 300 ng/mL); Ecstacy Urine VISTA NEGATIVE (< 500 ng/mL); Methadone Urine VISTA NEGATIVE (< 300 ng/mL); PCP Urine VISTA NEGATIVE (< 25 ng/mL); THC Urine VISTA NEGATIVE (< 50 ng/mL); Vista UDS pH Range 4
[2024-06-28 22:26] LABS: Bacteria RARE /hpf (None Seen); Mucous, Urine 2+ /hpf (<or=2+); Red Blood Cells-Urine 5-10 SEEN /hpf (0-5); Squamous Epithelial Cells - UA 0-5 SEEN /hpf (0-5)
[2024-06-28 23:00] VITALS: BP 175/115; PULSE 86; RESP 13; O2SAT 94
--- NOTE | 2024-06-28 23:23 | PCM.HP.STD ---
HPI - General General Date of Admission: 06/28/24 Date of Service: 06/28/24 Chief Complaint: Confusion, ? aphasia, headache worsened imbalance. HPI Narrative The patient is a 53 y/o M w/ PMHx: Obesity, Hypothyroidism, CADASIL (cerebral autosomal dominant arteriopathy with subcortical infarcts and leukoencephalopathy) w/ associated Hx multiple prior CVA on oral taurine, Anxiety and Depression, recent ED evaluation 06/24/2024 with history at that time of onset of headache and increased fatigue with unchanged chronic difficulty walking/imbalance with unremarkable NIH stroke scale assessment, resolution of headache, unremarkable labs, CT head with no acute findings with eventual discharge to home who now re-presents to the [facility] ED on 06/28/24 with history of recurrent severe headache generalized but worse in the frontal regions bilaterally and sensation of worsening imbalance although he does have underlying chronic history from previous significant strokes in addition to family feeling as though he was confused and not making any sense with possible aphasia prompting again EMS call and return for evaluation. Patient does have significant balance and gait deficits with his left side more affected than the right with large lateral sway as well as necessity for small steps to turn and unfortunately poor left foot clearance per review of therapy notes over the last year. Workup in the ED included T98.8, heart rate 85, BP 150/106, respiratory rate 18, 98% room air, CBC with WBC 7.3, hemoglobin 16.9, platelet 295 without marked shift, unremarkable coags, CMP unremarkable, troponin 4, ammonia level 16, ethyl alcohol level less than 3, chest x-ray no acute cardiopulmonary findings, UDS negative, CT of the brain with no evidence of acute intracranial pathology with noted diffuse involutional changes and chronic ischemic small vessel white matter disease, urinalysis unremarkable, EKG with SR without acute evidence of ischemia. [facility] Medical History Obesity Anxiety and depression History of multiple strokes Hypothyroidism CADASIL Home Medications ?Medication ?Instructions ?Recorded ?Last Taken ?Type bupropion HCl 300 mg 24 hr tablet, 300 mg PO DAILY 03/09/24 Unknown History extended release escitalopram oxalate 10 mg tablet 5 mg PO DAILY 03/09/24 Unknown History ondansetron 4 mg disintegrating 4 mg PO Q8H PRN nausea and 03/26/24 Unknown Rx tablet vomiting #12 tabs oxycodone-acetaminophen 5 mg-325 1 tab PO Q6H PRN pain 3 days #12 03/26/24 Unknown Rx mg tablet (Endocet) tabs Allergy/AdvReac Type Severity Reaction Status Date / Time Penicillins Allergy Other Verified 06/28/24 19:29 Family History (Updated 06/29/24 @ 00:[address] Bharati Barber MD) Father CVA (cerebral vascular accident) Diabetes Heart disease COPD (chronic obstructive pulmonary disease) Brother CVA (cerebral vascular accident) Grandmother CVA (cerebral vascular accident) Mother No problems noted. Surgical History Hx of tonsillectomy Social History (Updated 06/29/24 @ 00:[address] Bharati Barber MD) household members: none Smoking Status: Never smoker alcohol intake: never substance use type: does not use ROS ROS Narrative Admission Review of Systems: CONSTITUTIONAL: No weight loss, fever, chills, + weakness or fatigue. HEENT: + Headache. Eyes: No visual loss, blurred vision, double vision or yellow sclerae. Ears, Nose, Throat: No hearing loss, sneezing, congestion, runny nose or sore throat. SKIN: No rash or itching, lesions, wounds. CARDIOVASCULAR: No chest pain, chest pressure or chest discomfort, palpitations, edema, orthopnea, syncopal events. RESPIRATORY: No shortness of breath, cough or sputum, wheezing, hemoptysis. GASTROINTESTINAL: + Anorexia. No nausea, vomiting or diarrhea, abdominal pain, melena, BRBPR. GENITOURINARY: No dysuria, frequency, urgency or retention. NEUROLOGICAL: + Headache, aphasia, history of previous strokes. No new worsened dizziness, syncope, paralysis, ataxia, numbness or tingling in the extremities, focal weakness, change in bowel or bladder control, seizure. MUSCULOSKELETAL: + muscle, back pain, joint pain or stiffness. HEMATOLOGIC: No anemia, bleeding or bruising. LYMPHATICS: No enlarged nodes. No history of splenectomy. PSYCHIATRIC: + History of anxiety and depression. ENDOCRINOLOGIC: No reports of sweating, cold or heat intolerance. No polyuria or polydipsia. ALLERGIES: No history of asthma, hives, eczema or rhinitis. Vital Signs Vital Signs Vital Signs: 06/28/24 19:30 06/28/24 21:17 Temperature 98.8 F Temperature Source Oral Pulse Rate 85 82 Respiratory Rate 18 24 H Blood Pressure 150/106 H 160/93 H Blood Pressure Mean 120 115 Pulse Ox 98 98 Oxygen Delivery Method Room Air Room Air Weight Weight: 235 lb 3.732 oz Body Mass Index (BMI) 32.8 Physical Exam Narrative Physical Examination: General: Awake, alert, oriented to self, confusing his sister and son who are in the room, having much difficulty answering questions appropriately, clearly aphasic, remains cooperative and will follow commands, laying in the ED bed, ongoing headache but difficulty describing. Skin: Normal color, normal turgor, no icterus, no cyanosis. HEENT: AT/NC, EOMI, PERRLA, mildly dry MM, no carotid bruits or JVD noted. Lungs: Mildly diminished, greater bases, appropriate effort, no rales, ronchi or wheezing. Heart: Regular rate and rhythm; no gallop, rub audible. Abdomen: Soft, obese, NTTP, ND, mildly hyperactive BS, no appreciated HSM. Extremities: No cyanosis, clubbing, or edema. Neurological: Patient awake, alert, oriented as noted, cognitive function not baseline intact; pupils equally reactive to light and accommodation, cranial nerves grossly normal, moving all 4 extremities, no obvious focal deficits, no obvious sensation deficits, no evidence of any drift, FTN appropriate, clear aphasia evident. Psychiatric: Affect appears fatigued, mildly frustrated, no acute evidence of depressive or anxiety feelings but does have underlying history. Results Lab / Micro Data 06/28/24 19:32 06/28/24 19:32 Labs: Laboratory Results - last 24 hr 06/28/24 19:32: WBC 7.3, RBC 5.56, Hgb 16.9 H, Hct 52.0, MCV 93.5, MCH 30.4, MCHC 32.5, RDW Std Deviation 43.8, RDW Coeff of Yevgeniy 12.7, Plt Count 295, MPV 10.3, Immature Gran % (Auto) 0.300, Neut % (Auto) 51.4, Lymph % (Auto) 35.6, [place] % (Auto) 10.7 H, Eos % (Auto) 1.6, Baso % (Auto) 0.4, Absolute Neuts (auto) 3.7, Absolute Lymphs (auto) 2.59, Nucleated RBC % 0, PT 13.6, INR 1.0, APTT 30.2, Sodium 142, Potassium 3.5, Chloride 106, Carbon Dioxide 29.0, Anion Gap 7, BUN 13, Creatinine 1.05, Estim Creat Clear Calc 98.78, Est GFR (MDRD) Af Amer 94, Est GFR (MDRD) Non-Af 78, BUN/Creatinine Ratio 12.4, Glucose 90, Calcium 9.4, Total Bilirubin 0.60, AST 15, ALT 40, Alkaline Phosphatase 93, Troponin I High Sens 4, Total Protein 7.8, Albumin 3.7, Globulin 4.1, Albumin/Globulin Ratio 0.9 06/28/24 20:40: Ammonia 16.0, Ethyl Alcohol < 3.0 06/28/24 21:51: Urine Opiates Screen NEGATIVE, Urine Methadone Screen NEGATIVE, Ur Barbiturates Screen NEGATIVE, Ur Phencyclidine Scrn NEGATIVE, Ur Amphetamines Screen NEGATIVE, MDMA (Ecstasy) Screen NEGATIVE, U Benzodiazepines Scrn NEGATIVE, Urine Cocaine Screen NEGATIVE, U Cannabinoids Screen NEGATIVE, Ur Drug Screen Comment 06/28/24 21:55: Urine Color Yellow, Urine Clarity Clear, Urine pH 5.0, Ur Specific [place] 1.025, Urine Protein 15 H, Urine Glucose (UA) Normal, Urine Ketones Negative, Urine Occult Blood 10 H, Urine Nitrite Negative, Urine Bilirubin Negative, Urine Urobilinogen Normal, Ur Leukocyte Esterase Negative, Urine RBC 5-10 SEEN, Urine WBC 0 SEEN, Ur Squamous Epith Cells 0-5 SEEN, Urine Bacteria RARE, Urine Mucus 2+ Imaging Radiology Impression Brain CT 06/28/24 20:30 IMPRESSION: 1. No evidence of acute intracranial pathology. 2. Diffuse involutional changes and chronic ischemic small vessel white matter disease. AIDOC was utilized to assist in identifying pertinent positive findings. Electronically Signed: Cheikh Contreras MD at 22:14 EST , Chest X-Ray 06/28/24 20:42 IMPRESSION: No radiographic evidence of acute cardiopulmonary disease. Electronically Signed: Cheikh Contreras MD at 21:33 EST , Assessment & Plan Assessment/Plan (1) CVA (cerebral vascular accident): PLAN: Plan The patient is a 53 y/o M w/ PMHx: Obesity, Hypothyroidism, CADASIL (cerebral autosomal dominant arteriopathy with subcortical infarcts and leukoencephalopathy) w/ associated Hx multiple prior CVA on oral taurine, Anxiety and Depression who presents to the [facility] ED on 06/28/24 with history of recurrent severe headache generalized but worse in the frontal regions bilaterally and sensation of worsening imbalance although he does have underlying chronic history from previous significant strokes in addition to family feeling as though he was confused and not making any sense with possible aphasia prompting again EMS call and return for evaluation. #1. Severe headache, acute on chronic imbalance as well as possible aphasia concerning for possible recurrent CVA w/ Known CADASIL (cerebral autosomal dominant arteriopathy with subcortical infarcts and leukoencephalopathy) w/ associated Hx multiple prior CVA on oral taurine versus potential complex migraine although lower suspicion is no previous history reported: Will admit to PCU, will obtain MRI Brain, given recent CTA head and neck just ~ 4 days prior will defer repeat, ECHO given not available in the system although do suspect has previously had this performed with bubble study, PT/OT/Speech/Nutrition evaluation per protocol. Will allow permissive HTN, maintain on asa, add statin w/ AM FLP, fall precautions. Mag, TSH/FT4, FLP, HgbA1c requested. Maintain on fall and aspiration precautions. Will continue orthotic bracing to assist in avoiding falls. Neurology consultation requested. #2. Hypothyroidism: Noted in history, current list does not have any specific regimen noted, will obtain TSH and free T4. #3. Anxiety and depression: We will continue patient home escitalopram and appropriate regimen. #4. Obesity: Weight loss and lifestyle changes encouraged. #5. DVT prophylaxis: Lovenox. #6. CODE status: Patient MARIELY is his sister who is present and living will is currently in place. Discussed CODE status at length including difference between FULL code, DNR-CCA and DNR-CC status. Following discussions about the differences in these status, requested Full Code status but discussion over more long-term decisions ensued and recommended that once patient is discharged these things be again reviewed to decide course of action in certain situations including the more short-term concept. Advanced Care Planning Face to Face Time: 16 minutes. Charges/Coding Visit Charges Inpatient E&M: 13948 Init Hosp L3 Procedures Hospitalists Procedures: 90095 Advncd Care Plan 30 Min
[2024-06-28 23:26] VITALS: BP 153/95; PULSE 81; RESP 14; TEMP 36.8; O2SAT 99
[2024-06-28 23:45] LABS: Magnesium 1.8 mg/dL (1.6-2.6)
[2024-06-28 23:59] VITALS: BMI 31.6
[2024-06-29] VITALS (9 sets, daily range): BP systolic 108–153; BP diastolic 55–106; PULSE 71–90; RESP 14–18; TEMP 36.3–36.9; O2SAT 94–99; BMI 31.7
[2024-06-29] MEDS: 0.9% Normal Saline (1000mL) 1,000 ML 100 ML IV (00:39)
[2024-06-29] MEDS: Aspirin 325 MG Tablet PO (01:02)
[2024-06-29 05:44] LABS: Absolute Lymphocyte Count 2.26 X10^3/uL (0.83-4.51); Absolute Neutrophil Count 5.2 X10^3/uL (2.0-7.7); Basophil# 0.05 X10^3/uL; Basophil% 0.6 % (0-1); Eosinophil# 0.18 X10^3/uL; Eosinophils% 2.1 % (0-5); Hematocrit 47.5 % (40-54); Hemoglobin 16.2 g/dL (13.0-16.5); Lymphocyte # 2.26 X10^3/ul (0.83-4.51); Lymphocyte % 26.2 % (19-41); Mean Corp Hgb Conc 34.1 g/dL (32-36); Mean Corpuscular Hgb 31.5 pg (27.0-32.0); Mean Corpuscular Volume 92.4 fL (80-94); Mean Platelet Vol. 9.6 fl (6.2-12.0); Monocyte# 0.91 X10^3/uL; Monocyte% 10.6 % (0-10); NRBC Flagged by Analyzer 0 % (0-5); Neutrophil # 5.19 X10^3/uL (2.7-7.7); Neutrophil % 60.2 % (47-70); Platelet Count 256 K/mm3 (150-450); RBC Distribution Width CV 12.6 % (11.6-14.6); RBC Distribution Width SD 43.1 fl (35.1-43.9); Red Blood Count 5.14 M/mm3 (4.6-6.2); White Blood Count 8.6 K/mm3 (4.4-11.0)
[2024-06-29] MEDS: Acetaminophen 325 MG Tablet 650 MG PO ×2 (06:21→20:47)
[2024-06-29 07:39] LABS: ALB/GLOB Ratio 0.9 RATIO (0.9-2.4); AST(SGOT) 15 U/L (15-37); Alanine Aminotransfer ALT/SGPT 31 U/L (16-61); Albumin, Serum 3.2 g/dL (3.2-5.0); Alkaline Phosphatase 81 U/L (45-117); Anion Gap 4 (5-15); BUN 10 mg/dL (7-18); BUN/Creat Ratio 11.3 RATIO (10-20); Calcium,Total 8.9 mg/dL (8.5-10.1); Chloride 110 mmol/L (98-107); Cholesterol 184 mg/dL (200); Creatinine, Serum 0.88 mg/dL (0.70-1.30); EST Glomerular Filtration Rate 95 mL/min (>60); Est Glom Filt Rate - Afr Amer 115 mL/min (>60); Estimated Creatinine Clearance 116.04 ml/min; Globulin 3.5 g/dL (2.2-4.2); Glucose 101 mg/dL (74-106); High Density Lipoprotein 34 mg/dL; Potassium 3.7 mmol/L (3.5-5.1); Protein, Total 6.7 g/dL (6.4-8.2); Sodium Level 139 mmol/L (136-145); T4 Free Direct 0.96 ng/dL (0.76-1.46); Triglycerides 111 mg/dL; Very Low Density Lipoprotein 22 mg/dL (5-40)
--- NOTE | 2024-06-29 09:06 | CON.PCM.NE_ITS ---
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 LKW was about 2h prior to admission yesterday but patient is not the best historian and then called his who noted the garbled speech so ems was called and taken to OSH. By the time he got to the OSH things seem to be improving. He had a CTH which did not show anything acute. He was just at [facility] a few days prior for migraine and CT/CTA were neg at that time, he apparently did have garbled speech and possible worsening of his left sided symptoms at that time but quickly resolved. His URBAN was treated and dcd, but then came back on 06/28/24 for again garbled speech and URBAN. A1c 5.6 on 07/2023. Lldl 128. He is back to normal now. NIH 1 for some numbness on left leg chronic. Assessment: - Unclear if these are complex migraines, encephalopathy spells from cadasil or a new stroke. Given the recurrent episodes less likely new stroke Plan: - Cont ASA81, statin, cv risk factor optimization, MRI brain and TTE pending. 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 LKW was about 2h prior to admission yesterday but patient is not the best historian and then called his who noted the garbled speech so ems was called and taken to OSH. By the time he got to the OSH things seem to be improving. He had a CTH which did not show anything acute. He was just at [facility] a few days prior for migriane and CT/CTA were neg at that time, he apparently did have garbled speech and possible worsening of his left sided symptoms at that time but quickly resolved. His URBAN was treated and dcd, but then came back on 06/28/24 for again garbled speech and URBAN. A1c 5.6 on 07/2023. Lldl 128. He is back to normal now. NIH 1 for some numbness on left leg chronic. Unclear if these are complex migraines, encephalopathy spells from cadasil or a new stroke. Given the recurrent episodes less likely new stroke. Cont ASA81, statin, cv risk factor optimization, MRI brain and TTE pending. [facility] Medical History Obesity Anxiety and depression History of multiple strokes Hypothyroidism CADASIL Home Medications ?Medication ?Instructions ?Recorded ?Last Taken ?Type bupropion HCl 300 mg 24 hr tablet, 300 mg PO DAILY 03/09/24 Unknown History extended release Allergy/AdvReac Type Severity Reaction Status Date / Time Penicillins Allergy Other Verified 06/28/24 19:29 Family History (Updated 06/29/24 @ 00:[address] Bharati Barber MD) Father CVA (cerebral vascular accident) Diabetes Heart disease COPD (chronic obstructive pulmonary disease) Brother CVA (cerebral vascular accident) Grandmother CVA (cerebral vascular accident) Mother No problems noted. Surgical History Hx of tonsillectomy Social History (Updated 06/29/24 @ 00:[address] Bharati Barber MD) household members: none Smoking Status: Never smoker alcohol intake: never substance use type: does not use Vital Signs Vital Signs Vital Signs: 06/28/24 19:30 06/28/24 21:17 06/28/24 23:00 Temperature 98.8 F Temperature Source Oral Pulse Rate 85 82 86 Respiratory Rate 18 24 H 13 Respiratory Effort Respiratory Depth Respiratory Pattern Blood Pressure 150/106 H 160/93 H 175/115 H Blood Pressure Mean 120 115 135 Blood Pressure Source Blood Pressure Position Blood Pressure Location Pulse Ox 98 98 94 Oxygen Delivery Method Room Air Room Air 06/28/24 23:26 06/29/24 00:04 06/29/24 00:22 Temperature 98.2 F 97.6 F L Temperature Source Temporal Pulse Rate 81 83 Respiratory Rate 14 18 Respiratory Effort Respiratory Depth Respiratory Pattern Blood Pressure 153/95 H 108/55 L Blood Pressure Mean 114 72 Blood Pressure Source Monitor Blood Pressure Position Supine Blood Pressure Location Right Forearm Pulse Ox 99 99 98 Oxygen Delivery Method Room Air Room Air 06/29/24 00:29 06/29/24 00:59 06/29/24 04:20 Temperature 98.0 F 97.3 F L Temperature Source Temporal Temporal Pulse Rate 82 90 Respiratory Rate 18 18 Respiratory Effort Normal Respiratory Depth Normal Respiratory Pattern Normal Blood Pressure 153/106 H 125/79 H Blood Pressure Mean 121 94 Blood Pressure Source Monitor Monitor Blood Pressure Position Semi-Fowlers Right Lateral Blood Pressure Location Left Forearm Left Forearm Pulse Ox 94 98 Oxygen Delivery Method Room Air Room Air Room Air 06/29/24 07:23 06/29/24 07:34 06/29/24 08:12 Temperature 97.8 F Temperature Source Oral Pulse Rate 85 Respiratory Rate 15 Respiratory Effort Normal Non-Labored Respiratory Depth Normal Respiratory Pattern Normal Blood Pressure 125/92 H Blood Pressure Mean 103 Blood Pressure Source Monitor Blood Pressure Position Supine Blood Pressure Location Right Arm Pulse Ox 96 95 Oxygen Delivery Method Room Air Room Air Room Air Weight Weight: 103.3 kg Body Mass Index (BMI) 31.7 NIHSS NIHSS Nursing Documentation NIHSS Nursing Documentation: NIHSS: Ischemic Stroke/TIA Start: 06/28/24 23:59 Text: For PCU Patients: NIH and Neuro Check every 4 Status: Active hours, PRN and with change in RN caregiver. Freq: [id number] Protocol: Activity Type Activity Date Activity User E-sign Co-sign Detail Recorded Client Recorded Date Recorded By Document 06/29/24 07:17 DS [id number] 06/29/24 07:23 DS 06/29/24 07:17 NIH Stroke Scale [NIHSS] A score of 0 is normal or asymptomatic . Total possible score is 42. Inpatient: RN or Physician to activate a stroke alert for onset of new stroke symptoms or with NIHSS increase >/= 3 points. Following change in neurological status, NIHSS will be performed per physician order or more frequently PRN. -1a. Level of Consciousness Alert; keenly responsive -1b. LOC Questions Answers one question correctly. -1c. LOC Commands Performs both tasks correctly . -2. Best Gaze Normal -3. Visual No visual loss -4. Facial Palsy Normal symmetrical movements -5a. Left Arm Drift; arm drifts downward but doesn?t hit the bed -5b. Right Arm No drift; arm holds 90 (or 45 ) degrees for full 10 seconds -6a. Left Leg Drift; leg falls by the end of 5- seconds, but does not hit bed -6b. Right Leg No drift; leg holds 30-degree position for full 5 seconds -7. Limb Ataxia Absent -8. Sensory Mild-to- moderate sensory loss; -9. Best Language Mild-to- moderate aphasia; -10. Dysarthria Mild-to- moderate dysarthria; -11. Extinction and Inattention No abnormality -Total 6 Query Text:A score of 0 is normal or asymptomatic. Total possible score is 42 . ED: Notify Physician for NIHSS increase by > / = 3 points. Inpatient: RN or Physician to activate a stroke alert for NIHSS increase of > / = 3 points. Coma Scale [Assess] -Eye Opening Spontaneous -Motor Obeys Commands -Verbal Confused [Total] -Coma Scale Total 14 Physical Exam Narrative - General: NAD, pleasant, cooperative, well nourished, well developed - Head/Eyes: Atraumatic, normocephalic, clear cornea, normal sclera/conjunctive - Neuro: ? Mental Status: AAOX4 & following simple commands. ? Speech: Clear and fluent with good repetition, comprehension, & naming. No aphasia or dysarthria ? CN II: Visual zamudio are full to confrontation. ? CN III, IV, : EOMI, no gaze preference, no nystagmus, no ptosis ? CN V: Facial sensation is intact to light touch throughout. ? CN VII: Face is symmetric with normal eye closure and smile. ? CN VII: Hearing is grossly normal to conversational speech. ? CN IX, X: Palate elevates symmetrically and no uvula deviation ? CN XI: Head turning, and shoulder shrug are intact. ? CN XII: Tongue is midline with normal movements and no atrophy. ? Motor: Able to sustain all limbs ? Sensation: left leg numbness ? Coordination: Normal FTN & HTS. No abn movements seen. Lab / Micro Data 06/29/24 05:25 06/29/24 05:25 Labs: Laboratory Results - last 24 hr 06/28/24 19:32: WBC 7.3, RBC 5.56, Hgb 16.9 H, Hct 52.0, MCV 93.5, MCH 30.4, MCHC 32.5, RDW Std Deviation 43.8, RDW Coeff of Yevgeniy 12.7, Plt Count 295, MPV 10.3, Immature Gran % (Auto) 0.300, Neut % (Auto) 51.4, Lymph % (Auto) 35.6, M rey % (Auto) 10.7 H, Eos % (Auto) 1.6, Baso % (Auto) 0.4, Absolute Neuts (auto) 3.7, Absolute Lymphs (auto) 2.59, Nucleated RBC % 0, PT 13.6, INR 1.0, APTT 30.2, Sodium 142, Potassium 3.5, Chloride 106, Carbon Dioxide 29.0, Anion Gap 7, BUN 13, Creatinine 1.05, Estim Creat Clear Calc 98.78, Est GFR (MDRD) Af Amer 94, Est GFR (MDRD) Non-Af 78, BUN/Creatinine Ratio 12.4, Glucose 90, Calcium 9.4, Magnesium 1.8, Total Bilirubin 0.60, AST 15, ALT 40, Alkaline Phosphatase 93, Troponin I High Sens 4, Total Protein 7.8, Albumin 3.7, Globulin 4.1, Albumin/Globulin Ratio 0.9 06/28/24 20:40: Ammonia 16.0, Ethyl Alcohol < 3.0 06/28/24 21:51: Urine Opiates Screen NEGATIVE, Urine Methadone Screen NEGATIVE, Ur Barbiturates Screen NEGATIVE, Ur Phencyclidine Scrn NEGATIVE, Ur Amphetamines Screen NEGATIVE, MDMA (Ecstasy) Screen NEGATIVE, U Benzodiazepines Scrn NEGATIVE, Urine Cocaine Screen NEGATIVE, U Cannabinoids Screen NEGATIVE, Ur Drug Screen Comment 06/28/24 21:55: Urine Color Yellow, Urine Clarity Clear, Urine pH 5.0, Ur Specific [place] 1.025, Urine Protein 15 H, Urine Glucose (UA) Normal, Urine Ketones Negative, Urine Occult Blood 10 H, Urine Nitrite Negative, Urine Bilirubin Negative, Urine Urobilinogen Normal, Ur Leukocyte Esterase Negative, Urine RBC 5-10 SEEN, Urine WBC 0 SEEN, Ur Squamous Epith Cells 0-5 SEEN, Urine Bacteria RARE, Urine Mucus 2+ 06/29/24 05:25: WBC 8.6, RBC 5.14, Hgb 16.2, Hct 47.5, MCV 92.4, MCH 31.5, MCHC 34.1, RDW Std Deviation 43.1, RDW Coeff of Yevgeniy 12.6, Plt Count 256, MPV 9.6, Immature Gran % (Auto) 0.300, Neut % (Auto) 60.2, Lymph % (Auto) 26.2, [place] % (Auto) 10.6 H, Eos % (Auto) 2.1, Baso % (Auto) 0.6, Absolute Neuts (auto) 5.2, Absolute Lymphs (auto) 2.26, Nucleated RBC % 0, Sodium 139, Potassium 3.7, C hloride 110 H, Carbon Dioxide 25.0, Anion Gap 4 L, BUN 10, Creatinine 0.88, Estim Creat Clear Calc 116.04, Est GFR (MDRD) Af Amer 115, Est GFR (MDRD) Non-Af 95, BUN/Creatinine Ratio 11.3, Glucose 101, Calcium 8.9, Total Bilirubin 0.70, AST 15, ALT 31, Alkaline Phosphatase 81, Total Protein 6.7, Albumin 3.2, Globulin 3.5, Albumin/Globulin Ratio 0.9, Triglycerides 111, Cholesterol 184, LDL Cholesterol 128, VLDL Cholesterol 22, HDL Cholesterol 34 L, TSH 1.250, Free T4 0.96 Imaging Radiology Impression Brain CT 06/28/24 20:30 IMPRESSION: 1. No evidence of acute intracranial pathology. 2. Diffuse involutional changes and chronic ischemic small vessel white matter disease. AIDOC was utilized to assist in identifying pertinent positive findings. Electronically Signed: Cheikh Contreras MD at 22:14 EST , Chest X-Ray 06/28/24 20:42 IMPRESSION: No radiographic evidence of acute cardiopulmonary disease. Electronically Signed: Cheikh Contreras MD at 21:33 EST , Active Medications Active Medications Active Medications: Current Medications Generic Name Dose Route Start Last Admin Trade Name Freq PRN Reason Stop Dose Admin Acetaminophen 650 mg 06/28/24 23:59 06/29/24 06:21 Acetaminophen 325 Mg Tablet PO 650 mg Q4H PRN PRN Administration Fever, pain 1-05/22 Al Hydroxide/Mg Hydroxide 30 ml 06/28/24 23:59 Mag Hydrox/Al Hydrox/Simeth 30 Ml Udc PO Q6H PRN PRN Gastric Burning Albuterol Sulfate 2.5 mg 06/28/24 23:59 Albuterol 2.5 Mg/3 Ml Vial.Neb. INHALATION Q2H PRN PRN Dyspnea, wheezing Aspirin 81 mg 06/29/24 17:00 Aspirin 81 Mg Tab.Chew PO DINNER [facility] Atorvastatin Calcium 80 mg 06/29/24 22:00 Atorvastatin Calcium 80 Mg Tablet PO QHS [facility] Bupropion HCl 300 mg 06/29/24 10:00 Bupropion (Xl) 300 Mg Tablet.Xl PO DAILY [facility] Enoxaparin Sodium 40 mg 06/29/24 10:00 Enoxaparin 40 Mg/0.4 Ml Syringe SC DAILY [facility] Escitalopram Oxalate 5 mg 06/29/24 10:00 Escitalopram Oxalate 10 Mg Tablet PO DAILY [facility] Guaifenesin 20 ml 06/28/24 23:59 Guaifenesin 10 Ml Udc (200mg/10ml) PO Q4H PRN PRN COUGH Hydralazine HCl 5 mg 06/28/24 23:59 Hydralazine 20 Mg/Ml Vial IV 06/29/24 23:59 Q30M PRN maintain BP parameters with HR <60 Sodium Chloride 1,000 mls @ 100 mls/hr 06/28/24 23:59 06/29/24 00:39 IV 06/29/24 09:58 100 mls/hr .Q10H TRISTAN Administration Protocol Sodium Chloride 500 mls @ 15 mls/hr 06/29/24 00:38 IV .[id number] PRN Saline Flush Sodium Chloride 500 mls @ 15 mls/hr 06/29/24 00:38 IV .[id number] PRN Additional IVPB Infusion Iopamidol 0 ml 06/28/24 23:59 06/29/24 01:19 Contrast Allergy Safety Check IV Not Given X1 [facility] Labetalol HCl 10 - 20 mg 06/28/24 23:59 Labetalol (Prefilled) 20 Mg/4 Ml Vial IV 06/29/24 23:59 Q10M PRN PRN maintain BP parameters with HR >/=60 Lorazepam 0.5 - 1 mg 06/29/24 00:30 Lorazepam 1 Mg Tablet PO X1 PRN anxiety with MRI Melatonin 3 mg 06/28/24 23:59 Melatonin 3 Mg Tablet PO QHS PRN PRN INSOMNIA Ondansetron HCl 4 mg 06/28/24 23:59 Ondansetron 4 Mg/2 Ml Vial IV Q8H PRN PRN NAUSEA/VOMITING Prochlorperazine Edisylate 5 mg 06/28/24 23:59 Prochlorperazine 10 Mg/2 Ml Vial IV Q4H PRN PRN Breakthrough Nausea/Vomiting Senna/Docusate Sodium 2 tablet 06/28/24 23:59 Senna/Docusate Sodium 1 Tablet PO BID PRN PRN Constipation Sodium Chloride 10 - 40 ml 06/29/24 00:38 0.9% Saline Lock 10 Ml Syringe IV UD PRN SALINE FLUSH
[2024-06-29 10:03] LABS: Hemoglobin A1c 5.4 % (3.8-5.6)
[2024-06-29] MEDS: Enoxaparin 40 MG/0.4 ML Syringe SC (10:41)
--- NOTE | 2024-06-29 15:11 | PN.HOSP_ITS ---
Subjective Subjective No issues overnight difficult to communicate with with his aphasia also he has been very tearful and crying periodically throughout his stay Objective Data Objective Data Vital Signs: Vital Signs Temp Pulse Resp BP Pulse Ox O2 Del Method 97.8 F 85 15 125/92 H 95 Room Air 06/29/24 07:23 06/29/24 07:23 06/29/24 07:23 06/29/24 07:23 06/29/24 08:12 06/29/24 08:12 Oxygen Delivery Method Room Air Weight: 227 lb 11.8 oz Body Mass Index (BMI) 31.7 Intake & Output: Intake and Output for Last 24 Hours 06/28/24 06/29/24 06/30/24 03:59 03:59 03:59 Intake Total 1000 / 1000 Balance 1000 / 1000 Lab / Micro Data 06/29/24 05:25 06/29/24 05:25 Labs: Laboratory Results - last 24 hr 06/28/24 19:32: WBC 7.3, RBC 5.56, Hgb 16.9 H, Hct 52.0, MCV 93.5, MCH 30.4, MCHC 32.5, RDW Std Deviation 43.8, RDW Coeff of Yevgeniy 12.7, Plt Count 295, MPV 10.3, Immature Gran % (Auto) 0.300, Neut % (Auto) 51.4, Lymph % (Auto) 35.6, M rey % (Auto) 10.7 H, Eos % (Auto) 1.6, Baso % (Auto) 0.4, Absolute Neuts (auto) 3.7, Absolute Lymphs (auto) 2.59, Nucleated RBC % 0, PT 13.6, INR 1.0, APTT 30.2, Sodium 142, Potassium 3.5, Chloride 106, Carbon Dioxide 29.0, Anion Gap 7, BUN 13, Creatinine 1.05, Estim Creat Clear Calc 98.78, Est GFR (MDRD) Af Amer 94, Est GFR (MDRD) Non-Af 78, BUN/Creatinine Ratio 12.4, Glucose 90, Calcium 9.4, Magnesium 1.8, Total Bilirubin 0.60, AST 15, ALT 40, Alkaline Phosphatase 93, Troponin I High Sens 4, Total Protein 7.8, Albumin 3.7, Globulin 4.1, Albumin/Globulin Ratio 0.9 06/28/24 20:40: Ammonia 16.0, Ethyl Alcohol < 3.0 06/28/24 21:51: Urine Opiates Screen NEGATIVE, Urine Methadone Screen NEGATIVE, Ur Barbiturates Screen NEGATIVE, Ur Phencyclidine Scrn NEGATIVE, Ur Amphetamines Screen NEGATIVE, MDMA (Ecstasy) Screen NEGATIVE, U Benzodiazepines Scrn NEGATIVE, Urine Cocaine Screen NEGATIVE, U Cannabinoids Screen NEGATIVE, Ur Drug Screen Comment 06/28/24 21:55: Urine Color Yellow, Urine Clarity Clear, Urine pH 5.0, Ur Specific [place] 1.025, Urine Protein 15 H, Urine Glucose (UA) Normal, Urine Ketones Negative, Urine Occult Blood 10 H, Urine Nitrite Negative, Urine Bilirubin Negative, Urine Urobilinogen Normal, Ur Leukocyte Esterase Negative, Urine RBC 5-10 SEEN, Urine WBC 0 SEEN, Ur Squamous Epith Cells 0-5 SEEN, Urine Bacteria RARE, Urine Mucus 2+ 06/29/24 05:25: WBC 8.6, RBC 5.14, Hgb 16.2, Hct 47.5, MCV 92.4, MCH 31.5, MCHC 34.1, RDW Std Deviation 43.1, RDW Coeff of Yevgeniy 12.6, Plt Count 256, MPV 9.6, Immature Gran % (Auto) 0.300, Neut % (Auto) 60.2, Lymph % (Auto) 26.2, [place] % (Auto) 10.6 H, Eos % (Auto) 2.1, Baso % (Auto) 0.6, Absolute Neuts (auto) 5.2, Absolute Lymphs (auto) 2.26, Nucleated RBC % 0, Sodium 139, Potassium 3.7, C hloride 110 H, Carbon Dioxide 25.0, Anion Gap 4 L, BUN 10, Creatinine 0.88, Estim Creat Clear Calc 116.04, Est GFR (MDRD) Af Amer 115, Est GFR (MDRD) Non-Af 95, BUN/Creatinine Ratio 11.3, Glucose 101, Hemoglobin A1c 5.4, Calcium 8.9, Total Bilirubin 0.70, AST 15, ALT 31, Alkaline Phosphatase 81, Total Protein 6.7, Albumin 3.2, Globulin 3.5, Albumin/Globulin Ratio 0.9, Triglycerides 111, Cholesterol 184, LDL Cholesterol 128, VLDL Cholesterol 22, HDL Cholesterol 34 L, TSH 1.250, Free T4 0.96 Radiography Diagnostic Testing: Radiology Impression Brain CT 06/28/24 20:30 IMPRESSION: 1. No evidence of acute intracranial pathology. 2. Diffuse involutional changes and chronic ischemic small vessel white matter disease. AIDOC was utilized to assist in identifying pertinent positive findings. Electronically Signed: Cheikh Contreras MD at 22:14 EST , Chest X-Ray 06/28/24 20:42 IMPRESSION: No radiographic evidence of acute cardiopulmonary disease. Electronically Signed: Cheikh Contreras MD at 21:33 EST , Physical Exam Narrative General: Alert, Oriented x2, Cooperative, No apparent distress HEENT: Atraumatic, PERRLA, EOMI, Normocephalic Oral: Moist Mucosa Neck: Supple, No JVD Lungs: Diminished, Normal air movement, No rhonchi, No wheeze, No rales Cardiovascular: Regular rate, Regular Rhythm, Normal S1, Normal S2, No murmurs Abdomen: Soft, Non Tender, Non-Distended, No Hepato-splenomegaly Extremities: No edema, Capillary Refill Less than 3 Seconds Skin: No rashes, No breakdown Musculoskeletal: No Tenderness to Palpation of Joints or Extremities Neurological: Some aphasia/dysarthria as well as left-sided symptoms Psych/Mental Status: Flat Assessment & Plan Assessment/Plan (1) CVA (cerebral vascular accident): PLAN: Plan 1. CVA versus migraine ? Has a history of cerebral autosomal dominant arteriopathy with subcortical infarcts and leukoencephalopathy ? Appreciate neurology's assistance ? MRI and echo pending for tomorrow ? PT/OT ? NIH is around 6 ? Continue with stroke protocol with aspirin and Lipitor 2. Anxiety and depression ? He was possibly on Wellbutrin but has not been taking it, so we will hold while here DVT: Lovenox Charges/Coding Visit Charges Inpatient E&M: 26503 Subs Hosp L2
[2024-06-29] MEDS: Aspirin 81 MG TAB.CHEW PO (17:43)
[2024-06-29] MEDS: 0.9% Saline Lock 10 ML Syringe IV (23:39)
[2024-06-29] MEDS: Atorvastatin Calcium 80 MG Tablet PO (23:39)
[2024-06-30] VITALS (9 sets, daily range): BP systolic 111–151; BP diastolic 74–100; PULSE 68–88; RESP 16–20; TEMP 36.4–36.8; O2SAT 92–98; BMI 31.7; BMI 30.9
[2024-06-30 06:58] LABS: Absolute Lymphocyte Count 2.16 X10^3/uL (0.83-4.51); Absolute Neutrophil Count 3.7 X10^3/uL (2.0-7.7); Basophil# 0.05 X10^3/uL; Basophil% 0.7 % (0-1); Eosinophil# 0.26 X10^3/uL; Eosinophils% 3.7 % (0-5); Hemoglobin 16.7 g/dL (13.0-16.5); Lymphocyte # 2.16 X10^3/ul (0.83-4.51); Lymphocyte % 30.5 % (19-41); Mean Corp Hgb Conc 34.1 g/dL (32-36); Mean Corpuscular Hgb 31.6 pg (27.0-32.0); Mean Corpuscular Volume 92.8 fL (80-94); Mean Platelet Vol. 9.3 fl (6.2-12.0); Monocyte% 12.7 % (0-10); NRBC Flagged by Analyzer 0 % (0-5); Neutrophil # 3.69 X10^3/uL (2.7-7.7); Neutrophil % 52.1 % (47-70); Platelet Count 263 K/mm3 (150-450); RBC Distribution Width CV 12.5 % (11.6-14.6); RBC Distribution Width SD 42.4 fl (35.1-43.9); Red Blood Count 5.28 M/mm3 (4.6-6.2); White Blood Count 7.1 K/mm3 (4.4-11.0)
[2024-06-30 07:34] LABS: Anion Gap 6 (5-15); BUN 12 mg/dL (7-18); BUN/Creat Ratio 12.9 RATIO (10-20); Chloride 108 mmol/L (98-107); Creatinine, Serum 0.93 mg/dL (0.70-1.30); EST Glomerular Filtration Rate 90 mL/min (>60); Est Glom Filt Rate - Afr Amer 108 mL/min (>60); Glucose 106 mg/dL (74-106); Potassium 3.9 mmol/L (3.5-5.1); Sodium Level 140 mmol/L (136-145)
[2024-06-30] MEDS: LORazepam 1 MG Tablet PO (09:10)
[2024-06-30] MEDS: Enoxaparin 40 MG/0.4 ML Syringe SC (09:23)
--- NOTE | 2024-06-30 09:45 | MRI_ITS ---
We are attempting to reach an attending provider to discuss findings. An addendum with communication details will be sent when the communication is complete. EXAM: MR HEAD WITHOUT INTRAVENOUS CONTRAST CLINICAL INDICATION: CVA TECHNIQUE: Multiplanar and multisequence MR images of the brain were obtained without intravenous contrast. COMPARISON: CT brain 06/28/2024 FINDINGS: BRAIN AND EXTRA-AXIAL SPACES: A 6 mm focus of restricted diffusion noted within the left parietal white matter consistent with acute lacunar type infarct. Extensive confluence areas of increased T2 signal intensity within the periventricular white matter, farhat and left thalamus consistent with chronic microvascular change. No hemorrhage or mass effect. Prominence of the cortical sulci and ventricles related to volume loss change. Basilar cisterns are patent. SELLA: Normal. Normal sella turcica, pituitary gland, infundibular stalk, optic chiasm and hypothalamus. AUDITORY SYSTEM: Normal. The internal auditory canals are patent. BONES/JOINTS: Intact calvarium. SINUSES: Mucosal thickening within the right maxillary sinus. MASTOID AIR CELLS: Clear. ORBITS: Unremarkable as visualized. Both globes, extraocular muscles, optic nerves and retrobulbar fat appear unremarkable. VASCULATURE: Unremarkable as visualized. Normal flow voids in the major intracranial circulation. MRI/Brain without Contrast IMPRESSION: 1. Small focus of acute ischemic change left parietal white matter. 2. Extensive chronic microvascular changes. Electronically Signed: Andrea Carrasquillo MD at 11:18 EST ,
[2024-06-30] MEDS: LORazepam 2 MG/ML Syringe 0.5 MG IV (10:05)
[2024-06-30] MEDS: 0.9% Saline Lock 10 ML Syringe IV (10:05)
--- NOTE | 2024-06-30 10:54 | CASEMGMT ---
SW was told patient's would like to talk with SW, but she wanted to wait until patient's sister comes in as she is patient's healthcare POA. SW checked in with patient's , Gwen. She met SW in the hallway. KENDELL introduced self and role at [facility]. Gwen said that she and patient's sister both feel patient needs to go to a group home and stay residential. They don't feel like he is properly caring for himself. Gwen said patient is against going to a facility to live, but okay with short term. SW explained SW can get them a list of facilities that take patient's insurance. SW then explained they would need to pick 3 or 4 preferences and then SW will take care of contacting facilities. Patient's sister will be in later today. SW will also attempt to talk with patient alone. Karyna Berg APPLICATION SUPPORT ENGINEER ANN
--- NOTE | 2024-06-30 11:16 | CASEMGMT ---
Discharge Planning A list of?SNF providers including quality and resource use data and consistent with the patient's preferred geographic region, medical needs, and insurance network was created in [employer] Guide.? This list was provided to the SW. Mey Gr Discharge Planning Asst.
--- NOTE | 2024-06-30 12:59 | PN.NEURO_ITS ---
Objective Data Objective Data Vital Signs: Vital Signs Temp Pulse Resp BP Pulse Ox O2 Del Method 98.3 F 81 18 138/96 H 95 Room Air 06/30/24 11:20 06/30/24 11:20 06/30/24 11:20 06/30/24 11:20 06/30/24 11:20 06/30/24 11:20 Oxygen Delivery Method Room Air Weight: 100.5 kg Body Mass Index (BMI) 30.9 Intake & Output: Intake and Output for Last 24 Hours 06/28/24 06/29/24 06/30/24 23:59 23:59 23:59 Intake Total 1999 240 / 240 Output Total 225 / 225 375 / 375 Balance 1775 / 1775 -135 / -135 Lab / Micro Data 06/30/24 06:36 06/30/24 06:36 Labs: Laboratory Results - last 24 hr 06/30/24 06:36: WBC 7.1, RBC 5.28, Hgb 16.7 H, Hct 49.0, MCV 92.8, MCH 31.6, MCHC 34.1, RDW Std Deviation 42.4, RDW Coeff of Yevgeniy 12.5, Plt Count 263, MPV 9.3, Immature Gran % (Auto) 0.300, Neut % (Auto) 52.1, Lymph % (Auto) 30.5, Crosby % (Auto) 12.7 H, Eos % (Auto) 3.7, Baso % (Auto) 0.7, Absolute Neuts (auto) 3.7, Absolute Lymphs (auto) 2.16, Nucleated RBC % 0, Sodium 140, Potassium 3.9, C hloride 108 H, Carbon Dioxide 26.0, Anion Gap 6, BUN 12, Creatinine 0.93, Estim Creat Clear Calc 109.80, Est GFR (MDRD) Af Amer 108, Est GFR (MDRD) Non-Af 90, BUN/Creatinine Ratio 12.9, Glucose 106, Calcium 9.0 Radiography Diagnostic Testing: Radiology Impression Brain MRI 06/30/24 09:45 IMPRESSION: 1. Small focus of acute ischemic change left parietal white matter. 2. Extensive chronic microvascular changes. Electronically Signed: Andrea Carrasquillo MD at 11:18 EST , ADDENDUM: 06/30/24 1140 IMPRESSION: 1. Small focus of acute ischemic change left parietal white matter. 2. Extensive chronic microvascular changes. N.B. : The above Results were Read Back by Andrea Carrasquillo MD to Jie Pedraza RN, and understanding confirmed on 06/30/2024 11:34:37 (ET). Electronically Signed: Andrea Carrasquillo MD at 11:18 EST , Physical Exam Narrative Do not suspect that drift on NIH reflects a true motor deficit - finger tapping and clamshelling movement intact, suspet that was merely a small bit of inattention leading to a point on NIHSS. Subject: Neurology Subjective MASSIMO MARK is a 53 year old M, who we are seeing in consultation today for advice on the management of episodic dyarthria and related patient care. He feels that his speaking difficulty has continued to improve over the weekend and is now nearly normal except for being slightly slower than typical. He also notes that he has been able to ambulate short distances in [facility] without assistance, but feels that he has perhaps gotten slightly weaker since hospitalization as he had difficulty ambulating at baseline since his stroke last Decemnber. EEG Results Procedure Details EEG Procedure Details: MASSIMO MARK is a 53 year old M with a past medical history of , who presents for evaluation of Electroencephalogram on DATE at TIME Assessment and Plan: Stroke Assessment/Plan MASSIMO MARK is a 53 M with a history of CADASIL who presents for evaluation of recurrent presentation with episodic dysarthria, now resolved. Neurological examination is at baseline. Neuroimaging shows a small oconnor radiata infarct in his left hemipshere and severe diffuse white matter disease, well beyond expectation for age and degre of risk factors consistent with CADASIL. New small infarct most likely reflects CADASIL. There is no specific treatment for CADASIL related vasculopathy. The main focus of management is to minimize the impact of conventional risk factors on vasculopathy. As such, would recommend targeting a lower BP goal (< 130/85) and initiating BP medication. - Utility of TTE is limited as this is most likely a small vessel infarct and driven by CADASIL. - No additional stroke work up required - Patient unlikely to require therapy given that he is back to baseline - Continue asa 81 - Continue high intensity statin - Would initiate oral anti-hypertensive working towards goal of BP < 130/85. Low dose diuretics, calcium channel blockers or DARYL/ARB would all be reasonable first line options. It seems he has been somewhat resistant to medications in the past, but he seems to be amenable to starting a BP med now.
--- NOTE | 2024-06-30 14:27 | CASEMGMT ---
SW met with patient. Introduced self and role at [facility]. 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 Patient was agreeable to PHQ9. However, SW found it difficult to ascertain answers from patient. He had a tendency to go off on random tangents. SW spoke with patient about a discharge plan. Patient was agreeable to going somewhere for rehab. SW provided patient with a list of facilities. Patient and his sister will review the list. SW asked that they pick 3-4 preferences and SW will take care of referrals. Karyna Berg EVENT PLANNING MANAGER ANN
--- NOTE | 2024-06-30 14:43 | CHAPLAIN ---
Type of Pastoral Visit _x__ Initial Visit ___ Follow-up Visit ___ On-call Visit ___ General Patient Visit ___ Spiritual Assessment ___ Family Conference ___ Bereavement ___ Rapid Response ___ Code Blue ___ Other (describe below) Pastoral Care Referral From _x__ Patient ___ Family ___ Nurse ___ Physician ___ Policy Issue Clerk ___ Granulizing Machine Operator ___ Other (describe below) Sacrament/Intervention _x__ Active listening ___ Anointing ___ Lutheran ___ Bereavement ___ Communion _x__ Irene exploration ___ _x__ Life review _x__ Prayer ___ Reconciliation ___ Sacrament of Sick _x__ Supportive presence ___ Wedding ___ Other (describe below) Pastoral Comments patient is a bit slow in speech but reveals that he has a disease that brings strokes upon him and that these will continue; pt has a sister in the room with him; pt is open and talkative; pt speaks of his marital situation with leaving him due to not handling this pronouncement from the disease; 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
[2024-06-30] MEDS: Aspirin 81 MG TAB.CHEW PO (16:20)
--- NOTE | 2024-06-30 17:18 | PCM.PN.HOSP ---
Reason for Visit Reason for Visit: Diagnoses Cerebral infarction, unspecified (06/30/24) Subjective Subjective Pt reports having some chronic weakness on the left side and feels he is back to his baseline. Patient is agreeable to placement Objective Data Objective Data Vital Signs: Vital Signs Temp Pulse Resp BP Pulse Ox O2 Del Method 98.0 F 88 20 H 151/100 H 94 Room Air 06/30/24 15:09 06/30/24 15:09 06/30/24 15:09 06/30/24 15:09 06/30/24 15:09 06/30/24 15:25 Oxygen Delivery Method Room Air Weight: 100.5 kg Body Mass Index (BMI) 30.9 Intake & Output: Intake and Output for Last 24 Hours 06/28/24 06/29/24 06/30/24 23:59 23:59 23:59 Intake Total 1999 / 1999 240 / 240 Output Total 225 / 225 375 / 375 Balance 1775 / 1775 -135 / -135 Lab / Micro Data 06/30/24 06:36 06/30/24 06:36 Labs: Laboratory Results - last 24 hr 06/30/24 06:36: WBC 7.1, RBC 5.28, Hgb 16.7 H, Hct 49.0, MCV 92.8, MCH 31.6, MCHC 34.1, RDW Std Deviation 42.4, RDW Coeff of Yevgeniy 12.5, Plt Count 263, MPV 9.3, Immature Gran % (Auto) 0.300, Neut % (Auto) 52.1, Lymph % (Auto) 30.5, Mccormick % (Auto) 12.7 H, Eos % (Auto) 3.7, Baso % (Auto) 0.7, Absolute Neuts (auto) 3.7, Absolute Lymphs (auto) 2.16, Nucleated RBC % 0, Sodium 140, Potassium 3.9, Chloride 108 H, Carbon Dioxide 26.0, Anion Gap 6, BUN 12, Creatinine 0.93, Estim Creat Clear Calc 109.80, Est GFR (MDRD) Af Amer 108, Est GFR (MDRD) Non-Af 90, BUN/Creatinine Ratio 12.9, Glucose 106, Calcium 9.0 Radiography Diagnostic Testing: Radiology Impression Brain MRI 06/30/24 09:45 IMPRESSION: 1. Small focus of acute ischemic change left parietal white matter. 2. Extensive chronic microvascular changes. Electronically Signed: Andrea Carrasquillo MD at 11:18 EST , ADDENDUM: 06/30/24 1140 IMPRESSION: 1. Small focus of acute ischemic change left parietal white matter. 2. Extensive chronic microvascular changes. N.B. : The above Results were Read Back by Andrea Carrasquillo MD to Jie Pedraza RN, and understanding confirmed on 06/30/2024 11:34:37 (ET). Electronically Signed: Andrea Carrasquillo MD at 11:18 EST , Physical Exam Narrative General: Alert, no apparent distress HEENT: Atraumatic, normocephalic Eyes: Anicteric, normal conjunctiva, extraocular movements grossly intact, pupils equal Neck: Supple Respiratory: Clear to auscultation bilaterally, normal respiratory effort Cardiovascular: Regular rate and rhythm GI: Soft, nontender, nondistended Extremities: No edema Musculoskeletal: Strength 5 out of 5 in right upper extremity, 5- out of 5 left upper extremity, 5 out of 5 right lower extremity, 5- out of 5 left lower extremity Neuro: No overt focal neurological deficits, cranial nerves II through XII intact, [id number] slow with some overcorrection left greater than right but not significantly so Skin: No rashes appreciated Psych: Overall cooperative Assessment & Plan Assessment/Plan (1) CVA (cerebral vascular accident): PLAN: Plan # Acute ischemic CVA in the setting of CADASIL -Small left parietal infarct seen on MRI -Discussed with neurology, continue aspirin and statin, is recommended to start an antihypertensive with goal blood pressure less than 130/85, lisinopril started -PT/OT, patient for placement -He was advised that TTE is of limited utility as this seems most consistent with small vessel infarct in setting of CADASIL and no further workup recommended at this time #DVT ppx: Lovenox subcu Opal Ulrich MD Charges/Coding Visit Charges Inpatient E&M: 79991 Subs Hosp L1
[2024-06-30] MEDS: Atorvastatin Calcium 80 MG Tablet PO (21:43)
[2024-07-01 01:23] VITALS: BMI 30.9
[2024-07-01 03:39] VITALS: BMI 30.9
[2024-07-01 05:00] VITALS: BP 130/99; PULSE 80; RESP 16; TEMP 36.7; O2SAT 95
[2024-07-01 07:11] LABS: Hematocrit 49.1 % (40-54); Hemoglobin 16.9 g/dL (13.0-16.5); Mean Corp Hgb Conc 34.4 g/dL (32-36); Mean Corpuscular Hgb 31.5 pg (27.0-32.0); Mean Corpuscular Volume 91.4 fL (80-94); Mean Platelet Vol. 9.5 fl (6.2-12.0); Platelet Count 276 K/mm3 (150-450); RBC Distribution Width CV 12.4 % (11.6-14.6); RBC Distribution Width SD 41.4 fl (35.1-43.9); Red Blood Count 5.37 M/mm3 (4.6-6.2); White Blood Count 6.5 K/mm3 (4.4-11.0)
[2024-07-01 07:54] LABS: Anion Gap 6 (5-15); BUN 14 mg/dL (7-18); BUN/Creat Ratio 13.2 RATIO (10-20); Calcium,Total 9.1 mg/dL (8.5-10.1); Chloride 111 mmol/L (98-107); Creatinine, Serum 1.06 mg/dL (0.70-1.30); EST Glomerular Filtration Rate 77 mL/min (>60); Est Glom Filt Rate - Afr Amer 93 mL/min (>60); Estimated Creatinine Clearance 95.09 ml/min; Glucose 105 mg/dL (74-106); Potassium 3.9 mmol/L (3.5-5.1); Sodium Level 141 mmol/L (136-145)
[2024-07-01 09:00] VITALS: BP 131/88; PULSE 81; RESP 18; TEMP 36.6; O2SAT 94
[2024-07-01] MEDS: Lisinopril 5 MG Tablet PO (09:09)
[2024-07-01] MEDS: Enoxaparin 40 MG/0.4 ML Syringe SC (09:09)
[2024-07-01 09:10] VITALS: O2SAT 94
--- NOTE | 2024-07-01 09:30 | CASEMGMT ---
SW checked in with patient to see if he and his sister reviewed the SNF list. Patient laughed and said he doesn't know what list. SW saw the list on patient's table and reviewed it. Patient's sister only chose 1 facility, [facility]. SW will ask Mey to send a referral. SW may have to get more SNF options from patient's sister. Karyna Berg OPERATIONS ASSISTANT ANN
--- NOTE | 2024-07-01 09:39 | CASEMGMT ---
Discharge Planning Referral sent via [facility] to [facility]. Mey Gr DC Planning Asst.
--- NOTE | 2024-07-01 10:39 | CASEMGMT ---
[facility] is full. KENDELL called patient's sister Alana. KENDELL left Alana a voice mail requesting a return call regarding more SNF choices. Karyna JUAREZ
[2024-07-01] MEDS: buPROPion 75 MG Tablet PO ×2 (13:44→20:38)
--- NOTE | 2024-07-01 13:46 | CASEMGMT ---
KENDELL called patient's sister Alana. KENDELL explained [facility] is full so we will need some other options. SW went over the list with Alana and she wanted only places in [place]. The next choices are [facility] and then [facility]. KENDELL asked Mey to make a referral to [facility]. Karyna Berg CONTROLLER MECHANIC ANN
--- NOTE | 2024-07-01 14:02 | CASEMGMT ---
Addendum entered by Mey Gr 07/01/24 14:43: [facility] accepted and will submit for precert. SW updated. Mey Gr DC Planning Asst. Original Note: Discharge Planning Referral sent to [facility] [place] via [facility]. Mey Gr DC Planning Asst.
--- NOTE | 2024-07-01 14:26 | CASEMGMT ---
KENDELL spoke with patient letting him know SW spoke with his sister and she picked [facility] and then [facility]. KENDELL let patient know [facility] accepted him and will start pre-cert. Karyna JUAREZ
--- NOTE | 2024-07-01 14:39 | CHAPLAIN ---
Type of Pastoral Visit ___ Initial Visit _x__ Follow-up Visit ___ On-call Visit ___ General Patient Visit ___ Spiritual Assessment ___ Family Conference ___ Bereavement ___ Rapid Response ___ Code Blue ___ Other (describe below) Pastoral Care Referral From _x__ Patient ___ Family ___ Nurse ___ Physician ___ Center Sales And Service Associate ___ Social And Human Services Assistant ___ Other (describe below) Sacrament/Intervention _x__ Active listening ___ Anointing ___ Faith ___ Bereavement ___ Communion _x__ Irene exploration ___ _x__ Life review _x__ Prayer ___ Reconciliation ___ Sacrament of Sick _x__ Supportive presence ___ Wedding ___ Other (describe below) Pastoral Comments follow up visit as requested by the patient; pt reviews his feelings and status of health; pt is focused on I am dying but just don't know how soon; pt is talkative; pt reports some improved contact with family which encourages him; pt asks personal questions about spiritual care service and how it involves his life; presence and prayer welcomed
[2024-07-01 15:05] VITALS: BP 122/80; PULSE 90; RESP 18; TEMP 37; O2SAT 98
[2024-07-01 15:36] VITALS: BMI 30.9
--- NOTE | 2024-07-01 16:32 | PCM.PN.HOSP ---
Reason for Visit Reason for Visit: Diagnoses Cerebral infarction, unspecified (06/30/24) Subjective Subjective Patient reports having crying spells and periods where he is upset and tearful with everything going on but denies any other new or acute complaints, denies any change in neurologic complaints Objective Data Objective Data Vital Signs: Vital Signs Temp Pulse Resp BP Pulse Ox O2 Del Method 98.6 F 90 18 122/80 H 98 Room Air 07/01/24 15:05 07/01/24 15:05 07/01/24 15:05 07/01/24 15:05 07/01/24 15:05 07/01/24 15:05 Oxygen Delivery Method Room Air Weight: 100.5 kg Body Mass Index (BMI) 30.9 Intake & Output: Intake and Output for Last 24 Hours 06/29/24 06/30/24 07/01/24 23:59 23:59 23:59 Intake Total 1999 / 1999 600 / 600 360 / 360 Output Total 225 / 225 575 / 875 800 / 800 Balance 1775 / 1775 25 / -275 -440 / -440 Lab / Micro Data 07/01/24 06:51 07/01/24 06:51 Labs: Laboratory Results - last 24 hr 07/01/24 06:51: WBC 6.5, RBC 5.37, Hgb 16.9 H, Hct 49.1, MCV 91.4, MCH 31.5, MCHC 34.4, RDW Std Deviation 41.4, RDW Coeff of Yevgeniy 12.4, Plt Count 276, MPV 9.5, Sodium 141, Potassium 3.9, Chloride 111 H, Carbon Dioxide 24.0, Anion Gap 6, BUN 14, Creatinine 1.06, Estim Creat Clear Calc 95.09, Est GFR (MDRD) Af Amer 93, Est GFR (MDRD) Non-Af 77, BUN/Creatinine Ratio 13.2, Glucose 105, Calcium 9.1 Physical Exam Narrative General: Alert HEENT: Atraumatic, normocephalic Eyes: Anicteric, normal conjunctiva, extraocular movements grossly intact Neck: Supple Respiratory: Clear to auscultation bilaterally, normal respiratory effort Cardiovascular: Regular rate and rhythm GI: Soft, nontender, nondistended Extremities: No edema Musculoskeletal: Moving all extremities, weak on left greater than right at baseline Neuro: No overt focal neurological deficits Skin: No rashes appreciated Psych: Cooperative but tearful at times Assessment & Plan Assessment/Plan (1) CVA (cerebral vascular accident): PLAN: Plan # Acute ischemic CVA in the setting of CADASIL -Small left parietal infarct seen on MRI -Discussed with neurology, continue aspirin and statin, is recommended to start an antihypertensive with goal blood pressure less than 130/85, lisinopril started -PT/OT, patient for placement -He was advised that TTE is of limited utility as this seems most consistent with small vessel infarct in setting of CADASIL and no further workup recommended at this time -07/01: Continue lisinopril and adjust as needed for blood pressure management. Patient will need SNF prior to discharge home, this is being coordinated # Mood lability -Patient reports he has had a history of difficulty with his moods and was previously on Wellbutrin but was not taking it, he reports when he would break this in half and take 1 in the morning and 1 at night he did well and would like to restart this -Start at 75 mg twice daily and can uptitrate -If patient develops difficulty sleeping can either do once daily or have second dose earlier in the day #DVT ppx: Lovenox subcu Opal Ulrich MD Charges/Coding Visit Charges Inpatient E&M: 98925 Subs Hosp L1
[2024-07-01] MEDS: Aspirin 81 MG TAB.CHEW PO (17:19)
[2024-07-01] MEDS: Atorvastatin Calcium 80 MG Tablet PO (20:37)
[2024-07-01 21:05] VITALS: BP 98/72; PULSE 87; RESP 14; TEMP 36.6; O2SAT 96
[2024-07-02 00:53] VITALS: BMI 30.9
[2024-07-02 02:28] VITALS: BP 101/75; PULSE 85; RESP 14; TEMP 36.6; O2SAT 96
[2024-07-02 05:10] LABS: Absolute Lymphocyte Count 2.42 X10^3/uL (0.83-4.51); Absolute Neutrophil Count 3.6 X10^3/uL (2.0-7.7); Basophil# 0.05 X10^3/uL; Basophil% 0.7 % (0-1); Eosinophil# 0.25 X10^3/uL; Eosinophils% 3.4 % (0-5); Hematocrit 48.8 % (40-54); Hemoglobin 16.4 g/dL (13.0-16.5); Lymphocyte # 2.42 X10^3/ul (0.83-4.51); Lymphocyte % 33.2 % (19-41); Mean Corp Hgb Conc 33.6 g/dL (32-36); Mean Corpuscular Hgb 31.2 pg (27.0-32.0); Mean Platelet Vol. 9.3 fl (6.2-12.0); Monocyte% 12.4 % (0-10); NRBC Flagged by Analyzer 0 % (0-5); Neutrophil # 3.63 X10^3/uL (2.7-7.7); Neutrophil % 49.9 % (47-70); Platelet Count 266 K/mm3 (150-450); RBC Distribution Width CV 12.6 % (11.6-14.6); RBC Distribution Width SD 43.4 fl (35.1-43.9); Red Blood Count 5.25 M/mm3 (4.6-6.2); White Blood Count 7.3 K/mm3 (4.4-11.0)
[2024-07-02 05:33] LABS: Anion Gap 5 (5-15); BUN 22 mg/dL (7-18); BUN/Creat Ratio 18.6 RATIO (10-20); Calcium,Total 8.8 mg/dL (8.5-10.1); Chloride 108 mmol/L (98-107); Creatinine, Serum 1.18 mg/dL (0.70-1.30); EST Glomerular Filtration Rate 68 mL/min (>60); Est Glom Filt Rate - Afr Amer 82 mL/min (>60); Estimated Creatinine Clearance 85.42 ml/min; Glucose 118 mg/dL (74-106); Potassium 3.7 mmol/L (3.5-5.1); Sodium Level 138 mmol/L (136-145)
[2024-07-02 06:00] VITALS: BMI 31.2
[2024-07-02 08:06] VITALS: O2SAT 95
[2024-07-02 09:38] VITALS: BP 120/81; PULSE 74; RESP 16; TEMP 36.8; O2SAT 98
[2024-07-02] MEDS: Lisinopril 5 MG Tablet PO (09:39)
[2024-07-02] MEDS: Enoxaparin 40 MG/0.4 ML Syringe SC (09:39)
[2024-07-02] MEDS: buPROPion 75 MG Tablet PO ×2 (09:39→19:56)
--- NOTE | 2024-07-02 12:34 | CASEMGMT ---
Patient triggered SDOH for transportation. Patient will be going to a senior living from [facility] and then the plan is likely assisted living. SW did provide patient with local transportation inforamtion. Karyna JUAREZ
[2024-07-02 14:54] VITALS: BMI 31.2
[2024-07-02 15:30] VITALS: BP 113/82; PULSE 75; RESP 16; TEMP 36.5; O2SAT 98
--- NOTE | 2024-07-02 15:45 | CASEMGMT ---
KENDELL received a call from patient's sister Alana. KENDELL explained to Alana that [facility] has accepted patient and currently are waiting on insurance to approve. Patient had expressed concern with going to [place] from SNF. KENDELL explained that patient will need to get an assisted living waiver. Alana asked how that happens. KENDELL told Alana SW will make the referral and someone will get in touch with her. She thanked KENDELL. KENDELL made a referral for assisted living waiver program. Karyna JUAREZ
--- NOTE | 2024-07-02 15:50 | CASEMGMT ---
Discharge Planning [facility] has obtained auth to admit. Mey Gr DC Planning Asst.
--- NOTE | 2024-07-02 15:57 | TREXTCAR_ITS ---
Diet Diet Order/Speech Therapy: 06/28/24 23:59 Diet: Cardiac - Heart Healthy Food consistency:: Regular Liquid Consistency:: Regular/Thin Routine Orders/Code Status Suppository Type: Dulcolax 10mg Suppository Frequency: Daily PRN Code Status: Full Code DC O2, CPAP, BIPAP needs Additional Home O2 Discharge instructions: No Therapies Physical Therapy: Eval and Treat Occupational Therapy: Eval and Treat Problem/Diagnosis (1) CVA (cerebral vascular accident): Status: Acute Code(s): I63.9 - Cerebral infarction, unspecified Plan # Acute ischemic CVA in the setting of CADASIL #HTN # Mood lability/depression 53-year-old male history of CVA secondary to CADASIL, anxiety and depression who presented [facility] ED 06/28/2024 with worsened imbalance, changes in mental status and a component of aphasia. He was discovered to have a small left parietal infarct on MRI and was evaluated by neurology. They felt that tight blood pressure control with a systolic less than 130 would be ideal and recommended beginning antihypertensive which patient was agreeable to. Patient stabilized back to his physical baseline but does have problems with balance and chronic left-sided weakness so was felt he would benefit from SNF on discharge and patient was agreeable. Patient did have some mood lability and asked to be placed back on his Wellbutrin and this was resumed which did help his mood lability. On day of discharge patient reports no new or acute complaints. Called and updated as well. Patient will be discharged on aspirin, statin, lisinopril, and Wellbutrin. He will need to follow-up with neurology on discharge, if he does not already have a neurologist he could establish with our local neurology office. Of note patient on multiple supplements at home, these have been left on his medication list for informational purposes and if he ultimately chooses to resume any of them once he is discharged home though likely will not be continued at [facility] facility on discharge Allergies/Procedures Done in Hospital Allergies Penicillins Allergy (Verified 06/28/24 19:29) Other Type of Care/Length of Stay Estimated LOS: Convalescent Care Less Than 30 days Type of Care Needed: Skilled Rehab Potential: Fair Prognosis: Fair Additional Orders/Day of Discharge Day of Discharge: 07/02/24 Dietary and Speech Recommendations Dietitian Recommendations/Changes: Continue Cardiac diet as ordered Speech Linguistic Eval Summary: Patient pleasant and cooperative. Emotional and tearful at times. Various family and friends visiting throughout the day. Patient endorses difficulty with word finding and difficulty projecting his voice. Family reports voice appears at baseline, and no evidence of dysarthria at the sentence level during assessment. Reading comprehension and writing not addressed d/t time limitations and patient desire to finish meal and visit with family. Patient presents with expressive and receptive aphasia characterized by fluent speech/language, speech at normal rate yet appears to be slightly deliberate, intact confrontational naming, word finding in structured sentences 84% (11/13), generative naming 70% (categories and initial grapheme constraints), decreased auditory comprehension for >2 step commands and comprehension of comparative and complex questions at 73% (8/). Discharge Plan Admission Admit Date/Time: 06/30/24 11:18 Primary Reason for Your Visit: Difficulty speaking, difficulty with imbalance Attending Provider: Opal Ulrich Primary Care Provider: Angy Tran CONSTRUCTION SCHEDULER Consulting Providers: Bharati Barber; Hamzah Burns Instructions Patient Instructions: ED Fall Prevention Discharge Orders/Prescriptions Prescriptions: New atorvastatin 80 mg Tablet 80 mg PO QHS Qty: 0 0RF bupropion HCl 75 mg Tablet 75 mg PO BID Qty: 0 0RF aspirin 81 mg Tablet,Chewable 81 mg PO DINNER Qty: 0 0RF lisinopril 5 mg Tablet 5 mg PO DAILY Qty: 0 0RF Continued bupropion HCl 300 mg tablet extended release 24 hr 300 mg PO DAILY KRIS-e 400 mg tablet 400 mg PO BID Rx Instructions: administer on an empty stomach ligaplex 1 pill PO DAILY copper 3 mg tablet 3 mg PO DAILY passion flower 250 mg capsule 250 mg PO DAILY PRN (Reason: anxiety) ascorbic acid (vitamin C) [C-1000] 1,000 mg tablet 1 g PO DAILY omega 8-fmn-tdn-fish oil [Fish Oil] 1,200 (144-216) mg capsule 1 cap PO DAILY Complex B-100 Tablet Extended Release 1 tab PO DAILY ashwagandha root extract 500 mg capsule 500 mg PO DAILY zinc gluconate 50 mg tablet 50 mg PO DAILY dietary supplement Tablet 1 tab PO DAILY cod liver oil Capsule 1 cap PO DAILY PreserVision AREDS 4,296 mcg-226 mg-90 mg capsule 1 cap PO DAILY betaine HCl 300 mg tablet 300 mg PO DAILY allerplex tumeric curcumin 500mg restful mind support whole food c complex plaquex oral magtein [id number] [L-Arginine Men's Health] 1 tab PO DAILY citrulline [L-Citrulline] 1 cap PO DAILY Referrals / Follow Up: Ramiro Jimenes MD [Non-Staff -Ordering Privileges] - (If you do not already have a neurologist you can follow with a local neurologist. Please call to schedule an establish care appointment if needed or follow-up with your current neurologist on discharge) Angy Tran NP, CONSTRUCTION SCHEDULER-C [Primary Care Provider] - Within 1 Week Disposition Disposition (needs filled in before D/C Order can be placed[facility]
--- NOTE | 2024-07-02 16:03 | CASEMGMT ---
KENDELL notified patient he was approved for [facility] and the physician will send him today. KENDELL notified Alana. Alana said she could take patient. KENDELL notified RN and physician. KENDELL provided patient with information on the assisted living waiver and let him know SW made a referral. KENDELL completed a PASRR in [facility] [employer] system. Plan: d/c to [facility] under intermediate level of care. Karyna Berg INSPECTOR BALL POINTS ANN
--- NOTE | 2024-07-02 16:05 | PCM.DC.SUM ---
Providers Date of Admission: 06/30/24 Date of Discharge: 07/02/24 Primary Care Physician: Angy Tran, YOANC Reason For Visit: cva Diagnosis Discharge Diagnosis (1) CVA (cerebral vascular accident): Status: Acute Code(s): I63.9 - Cerebral infarction, unspecified Plan # Acute ischemic CVA in the setting of CADASIL #HTN # Mood lability/depression Medications at Discharge Home Medications bupropion HCl 300 mg 24 hr tablet, extended release 300 mg PO DAILY 03/09/24 allerplex 06/29/24 sxpsmiwc-F61-mdido acid-B6 1 tab PO DAILY supplement 06/29/24 ascorbic acid (vitamin C) 1,000 mg tablet (C-1000) 1 g PO DAILY supplement 06/29/24 ashwagandha root extract 500 mg capsule 500 mg PO DAILY suppliment 06/29/24 betaine HCl 300 mg tablet 300 mg PO DAILY suplement 06/29/24 citrulline 1 cap PO DAILY supplement 06/29/24 cod liver oil 1 cap PO DAILY cholesterol 06/29/24 copper 3 mg tablet 3 mg PO DAILY supplement 06/29/24 dietary supplement 1 tab PO DAILY supplement 06/29/24 ligaplex 1 pill PO DAILY 06/29/24 magtein 06/29/24 omega 5-aur-zqq-fish oil 1,200 mg (144 mg-216 mg) capsule (Fish Oil) 1 cap PO DAILY cholesterol 06/29/24 passion flower 250 mg capsule 250 mg PO DAILY PRN anxiety 06/29/24 plaquex oral 06/29/24 restful mind support 06/29/24 s-adenosylmethionine 400 mg tablet (KRIS-e) 400 mg PO BID depression 06/29/24 tumeric curcumin 500mg 06/29/24 vitamin B complex (Complex B-100 tablet,extended release) 1 tab PO DAILY 06/29/24 vitamins A,C,E-szwe-iffanp 4,296 mcg-226 mg-90 mg capsule (PreserVision AREDS) 1 cap PO DAILY 06/29/24 whole food c complex 06/29/24 zinc gluconate 50 mg tablet 50 mg PO DAILY 06/29/24 aspirin 81 mg chewable tablet 81 mg PO DINNER #0 tabs 07/02/24 atorvastatin 80 mg tablet 80 mg PO QHS #0 tabs 07/02/24 bupropion HCl 75 mg tablet 75 mg PO BID #0 tabs 07/02/24 lisinopril 5 mg tablet 5 mg PO DAILY #0 tabs 07/02/24 Hospital Course Procedures - Summary of Care Provided Minutes Spent on Discharge: 32 Hospital Course: 53-year-old male history of CVA secondary to CADASIL, anxiety and depression who presented [facility] ED 06/28/2024 with worsened imbalance, changes in mental status and a component of aphasia. He was discovered to have a small left parietal infarct on MRI and was evaluated by neurology. They felt that tight blood pressure control with a systolic less than 130 would be ideal and recommended beginning antihypertensive which patient was agreeable to. Patient stabilized back to his physical baseline but does have problems with balance and chronic left-sided weakness so was felt he would benefit from SNF on discharge and patient was agreeable. Patient did have some mood lability and asked to be placed back on his Wellbutrin and this was resumed which did help his mood lability. On day of discharge patient reports no new or acute complaints. Called and updated as well. Patient will be discharged on aspirin, statin, lisinopril, and Wellbutrin. He will need to follow-up with neurology on discharge, if he does not already have a neurologist he could establish with our local neurology office. Of note patient on multiple supplements at home, these have been left on his medication list for informational purposes and if he ultimately chooses to resume any of them once he is discharged home though likely will not be continued at custodial facility on discharge Physical Exam Narrative General: Alert, oriented, no apparent distress HEENT: Atraumatic, normocephalic Eyes: Anicteric, normal conjunctiva, extraocular movements intact, pupils equal Neck: Supple Respiratory: Clear to auscultation bilaterally, normal respiratory effort Cardiovascular: Regular rate and rhythm GI: Soft, nontender, nondistended Extremities: No edema Musculoskeletal: Strength 5 out of 5 in right upper extremity, 5 - out of 5 left upper extremity, 5 out of 5 right lower extremity, 5 - out of 5 left lower extremity Neuro: No overt focal neurological deficits, cranial nerves II through XII intact, has slightly slower finger-nose on left hand than right but is able to touch to finger and nose Skin: No rashes appreciated Psych: Cooperative Weight / BMI Weight Weight: 101.6 kg Body Mass Index (BMI) 31.2 ABG / Lab / Microbiology Data 07/02/24 05:00 07/02/24 05:00 Laboratory: Laboratory Results - last 24 hr 07/02/24 05:00: WBC 7.3, RBC 5.25, Hgb 16.4, Hct 48.8, MCV 93.0, MCH 31.2, MCHC 33.6, RDW Std Deviation 43.4, RDW Coeff of Yevgeniy 12.6, Plt Count 266, MPV 9.3, Immature Gran % (Auto) 0.400, Neut % (Auto) 49.9, Lymph % (Auto) 33.2, [place] % (Auto) 12.4 H, Eos % (Auto) 3.4, Baso % (Auto) 0.7, Absolute Neuts (auto) 3.6, Absolute Lymphs (auto) 2.42, Nucleated RBC % 0, Sodium 138, Potassium 3.7, Chloride 108 H, Carbon Dioxide 25.0, Anion Gap 5, BUN 22 H, Creatinine 1.18, Estim Creat Clear Calc 85.42, Est GFR (MDRD) Af Amer 82, Est GFR (MDRD) Non-Af 68, BUN/Creatinine Ratio 18.6, Glucose 118 H, Calcium 8.8 D/C Instructions Discharge Diet: - (cardiac diet) Discharge Activity: - (increase activity as tolerated) DC O2, CPAP, BIPAP Needs Additional Home O2 Discharge instructions: No DC home with Oxygen: No Meaningful Use Info Meaningful Use Meaningful Use Diagnoses (Choose all that apply): Ischemic CVA CVA Therapy Assessed for PT,OT and/or ST?: Yes Ischemic Stroke Antithrombotic order at d/c?: Yes Dx of Atrial fib/flutter?: No Statin Dosing Therapy Reference: STATIN DOSE THERAPY REFERENCE: * Patients > 75 years receive moderate or high dose statin therapy. * Patients 75 years or YOUNGER should receive HIGH intensity statin dose unless contraindicated. You will be required to document reason for non-treatment if statin daily dose does not meet guidelines. HIGH DOSE STATIN THERAPY DAILY Atorvastatin > than or = to 40 mg Rosuvastatin > than or = to 20 mg Amlodipine + Atorvastatin > than or = to 2.5/40 mg Ezetimibe + Simvastatin 10/80 mg Simvastatin 80mg Statins at discharge?: Yes If patient is 75 or younger, pt will be discharged on HIGH intensity statin.: Yes Primary Dx Acute Ischemic CVA?: Yes Discharge Plan Admission Admit Date/Time: 06/30/24 11:18 Primary Reason for Your Visit: Difficulty speaking, difficulty with imbalance Attending Provider: Opal Ulrich Primary Care Provider: Angy Tran NP Consulting Providers: Bharati Barber; Hamzah Burns Instructions Patient Instructions: ED Fall Prevention Discharge Orders/Prescriptions Prescriptions: New atorvastatin 80 mg Tablet 80 mg PO QHS Qty: 0 0RF bupropion HCl 75 mg Tablet 75 mg PO BID Qty: 0 0RF aspirin 81 mg Tablet,Chewable 81 mg PO DINNER Qty: 0 0RF lisinopril 5 mg Tablet 5 mg PO DAILY Qty: 0 0RF Continued bupropion HCl 300 mg tablet extended release 24 hr 300 mg PO DAILY KRIS-e 400 mg tablet 400 mg PO BID Rx Instructions: administer on an empty stomach ligaplex 1 pill PO DAILY copper 3 mg tablet 3 mg PO DAILY passion flower 250 mg capsule 250 mg PO DAILY PRN (Reason: anxiety) ascorbic acid (vitamin C) [C-1000] 1,000 mg tablet 1 g PO DAILY omega 4-sem-zxu-fish oil [Fish Oil] 1,200 (144-216) mg capsule 1 cap PO DAILY Complex B-100 Tablet Extended Release 1 tab PO DAILY ashwagandha root extract 500 mg capsule 500 mg PO DAILY zinc gluconate 50 mg tablet 50 mg PO DAILY dietary supplement Tablet 1 tab PO DAILY cod liver oil Capsule 1 cap PO DAILY PreserVision AREDS 4,296 mcg-226 mg-90 mg capsule 1 cap PO DAILY betaine HCl 300 mg tablet 300 mg PO DAILY allerplex tumeric curcumin 500mg restful mind support whole food c complex plaquex oral magtein paeiyevi-C00-oagog acid-B6 [L-Arginine Men's Health] 1 tab PO DAILY citrulline [L-Citrulline] 1 cap PO DAILY Referrals / Follow Up: Ramiro Jimenes MD [Non-Staff -Ordering Privileges] - (If you do not already have a neurologist you can follow with a local neurologist. Please call to schedule an establish care appointment if needed or follow-up with your current neurologist on discharge) Angy Tran NP, [facility] [Primary Care Provider] - Within 1 Week Disposition Disposition (needs filled in before D/C Order can be placed): Care Home Facility Charges/Coding Visit Charges Inpatient E&M: 11849 Disch Hosp >30min
--- NOTE | 2024-07-02 16:25 | CASEMGMT ---
Discharge Planning Discharge orders and transport time sent to [facility] [place]. Pts sister will transport between 5-6. Nursing will need to fax signed med list. Green sheet placed on chart. Mey Gr DC Planning Asst.
[2024-07-02 16:41] VITALS: BMI 31.2
[2024-07-02] MEDS: Aspirin 81 MG TAB.CHEW PO (17:04)
[2024-07-02] MEDS: Atorvastatin Calcium 80 MG Tablet PO (19:56)
[2024-07-02 20:00] VITALS: BP 119/84; PULSE 80; RESP 18; TEMP 36.9; O2SAT 98
== END 2024-07-02 20:25 | disposition skilled nursing facility (03) | DRG 45 ==
LOC: ED 23:34 → PCU 23:44
PROVIDERS: Family Medicine; Admitting Provider Family Medicine; Emergency Provider Emergency Medicine; PCP Registered Nurse; Visit Provider Internal Medicine
DX: I63.89 Other cerebral infarction (principal); I67.850 Cerebral autosomal dominant arteriopathy with subcortical infarcts and leukoencephalopathy; F32.A Depression, unspecified; E66.9 Obesity, unspecified; F41.9 Anxiety disorder, unspecified; Z86.73 Personal history of transient ischemic attack (TIA), and cerebral infarction without residual deficits; Z79.899 Other long term (current) drug therapy; Z68.32 Body mass index [BMI] 32.0-32.9, adult; R29.706 NIHSS score 6
CPT/HCPCS: 36415; 70450; 70551; 71046; 80048; 80053; 80061; 80307; 81001; 82077; 82140; 83036; 83735; 84439; 84443; 84484; 85025; 85027; 85610; 85730; 92507; 92523; 93005; 94762; 97116; 97129; 97130; 97162; 97166; 97530; 97535; 97802; 99285; J7030; A4216

== ENCOUNTER 2024-08-10 18:13 | Emergency (ER) | payer MEDICAID, SELFPAY ==
[2024-08-10 18:18] VITALS: BP 114/85; PULSE 97; RESP 18; TEMP 36.5; O2SAT 94
--- NOTE | 2024-08-10 18:40 | EKG12_ITS ---
Test Reason : Blood Pressure : */* mmHG Vent. Rate : 92 BPM Atrial Rate : 92 BPM P-R Int : 162 ms QRS Dur : 84 ms QT Int : 348 ms P-R-T Axes : 57 -16 58 degrees QTcB Int : 430 ms Normal sinus rhythm Normal ECG Confirmed by CARLOS ROSENTHAL, MARI ([id number]), managing editor JERED AVILES ([id number]) on 08/11/2024 11:05:55 AM Referred By: Confirmed By: MARI GONZALEZ MD
[2024-08-10 18:47] VITALS: BMI 30.8
[2024-08-10 18:48] VITALS: BMI 31.5
--- NOTE | 2024-08-10 18:48 | EDS_ITS ---
HPI <MATTHIAS Wei - Last Filed: 08/10/24 21:17> History of Present Illness Chief Complaint: Neuro S/Sx Narrative Narrative: 53-year-old male had a stroke 1 month ago and [facility] due to left leg weakness. Last night he developed fatigue, generalized weakness, and nausea and vomiting. He denies abdominal pain but states he has been constipated. This morning he still felt very fatigued. When his talked with him on the phone he seemed harder to understand. Now that she sees him here in person she states he has normal speech but seems a little slower to respond to questions. [facility] <MATTHIAS Wei - Last Filed: 08/10/24 21:17> [facility] Medical History Obesity Anxiety and depression History of multiple strokes Hypothyroidism CADASIL Home Medications ?Medication ?Instructions ?Recorded ?Last Taken ?Type bupropion HCl 300 mg 24 hr tablet, 300 mg PO DAILY 03/09/24 Unknown History extended release allerplex 06/29/24 Unknown History yztrkgfa-Y96-rvacy acid-B6 1 tab PO DAILY supplement 06/29/24 Unknown History ascorbic acid (vitamin C) 1,000 mg 1 g PO DAILY supplement 06/29/24 Unknown History tablet (C-1000) ashwagandha root extract 500 mg 500 mg PO DAILY suppliment 06/29/24 Unknown H istory capsule betaine HCl 300 mg tablet 300 mg PO DAILY suplement 06/29/24 Unknown History citrulline 1 cap PO DAILY supplement 06/29/24 Unknown History cod liver oil 1 cap PO DAILY cholesterol 06/29/24 Unknown History copper 3 mg tablet 3 mg PO DAILY supplement 06/29/24 Unknown History dietary supplement 1 tab PO DAILY supplement 06/29/24 Unknown History ligaplex 1 pill PO DAILY 06/29/24 Unknown History magtein 06/29/24 Unknown History omega 6-qxz-ouw-fish oil 1,200 mg 1 cap PO DAILY cholesterol 06/29/24 Unknown History (144 mg-216 mg) capsule (Fish Oil) passion flower 250 mg capsule 250 mg PO DAILY PRN anxiety 06/29/24 Unknown History plaquex oral 06/29/24 Unknown History restful mind support 06/29/24 Unknown History s-adenosylmethionine 400 mg tablet 400 mg PO BID depression 06/29/24 Unknown History (KRIS-e) tumeric curcumin 500mg 06/29/24 Unknown History vitamin B complex (Complex B-100 1 tab PO DAILY 06/29/24 Unknown History tablet,extended release) vitamins A,C,T-sxob-ufxirm 4,296 1 cap PO DAILY 06/29/24 Unknown History mcg-226 mg-90 mg capsule (PreserVision AREDS) whole food c complex 06/29/24 Unknown History zinc gluconate 50 mg tablet 50 mg PO DAILY 06/29/24 Unknown History aspirin 81 mg chewable tablet 81 mg PO DINNER #0 tabs 07/02/24 Unknown Rx atorvastatin 80 mg tablet 80 mg PO QHS #0 tabs 07/02/24 Unknown Rx bupropion HCl 75 mg tablet 75 mg PO BID #0 tabs 07/02/24 Unknown Rx lisinopril 5 mg tablet 5 mg PO DAILY #0 tabs 07/02/24 Unknown Rx cephalexin 500 mg capsule 500 mg PO BID 3 days #6 caps 08/10/24 Unknown Rx Allergy/AdvReac Type Severity Reaction Status Date / Time Penicillins Allergy Other Verified 06/28/24 19:29 Family History (Updated 06/29/24 @ 00:[address] Bharati Barber MD) Father CVA (cerebral vascular accident) Diabetes Heart disease COPD (chronic obstructive pulmonary disease) Brother CVA (cerebral vascular accident) Grandmother CVA (cerebral vascular accident) Mother No problems noted. Surgical History Hx of tonsillectomy Social History (Updated 06/29/24 @ 00:[address] Bharati Barber MD) household members: none Smoking Status: Never smoker alcohol intake: never substance use type: does not use ROS <MATTHIAS Wei - Last Filed: 08/10/24 21:17> ROS ED ROS Narrative Constitutional: Negative for fever, chills. CVS: Negative for palpitations, chest pain, syncope. Respiratory: Negative for shortness of breath, cough. GI: Positive for nausea, vomiting, constipation. Negative for abdominal pain, diarrhea, melena, hematochezia. : Negative for dysuria, hematuria or frequency. Neuro: Negative for headache. EXAM <MATTHIAS Wei - Last Filed: 08/10/24 21:17> Physical Exam Narrative Exam Narrative: CONST: Patient sitting in no acute distress. He appears tired. EYES: Normal inspection. ENT: Normal inspection, moist mucous membranes. NECK: Normal inspection. RESP: No respiratory distress, CTAB. CVS: Regular rate and rhythm, no murmur, no gallop. ABD: Soft and nontender, no guarding or rebound, nondistended. Normal bowel garrison nds x 4. SKIN: Color normal, no rash, warm, dry, intact. EXTREMITIES: Normal appearance, no pedal edema. NEURO: Alert and answering questions appropriately. Cranial nerves II through XII intact. Moving all extremities, 5/5 bilateral client success director strength and dorsiflexion plantarflexion strength. PSYCH: Normal affect. Const Vital Signs: 08/10/24 18:18 08/10/24 19:17 08/10/24 19:22 Temperature 97.7 F L 98.7 F Temperature Source Temporal Temporal Pulse Rate 97 94 94 Respiratory Rate 18 22 H 22 H Blood Pressure 114/85 H 109/72 109/72 Blood Pressure Mean 94 84 84 Pulse Ox 94 94 97 Oxygen Delivery Method Room Air Room Air 08/10/24 20:00 08/10/24 21:00 Temperature 98.3 F Temperature Source Temporal Pulse Rate 95 Respiratory Rate 25 H Blood Pressure 103/60 104/65 Blood Pressure Mean 74 78 Pulse Ox 98 Oxygen Delivery Method <Dr. Axel Steiner DO - Last Filed: 08/10/24 23:09> Physical Exam Const Vital Signs: 08/10/24 18:18 08/10/24 19:17 08/10/24 19:22 Temperature 97.7 F L 98.7 F Temperature Source Temporal Temporal Pulse Rate 97 94 94 Respiratory Rate 18 22 H 22 H Blood Pressure 114/85 H 109/72 109/72 Blood Pressure Mean 94 84 84 Pulse Ox 94 94 97 Oxygen Delivery Method Room Air Room Air 08/10/24 20:00 08/10/24 21:00 Temperature 98.3 F Temperature Source Temporal Pulse Rate 95 Respiratory Rate 25 H Blood Pressure 103/60 104/65 Blood Pressure Mean 74 78 Pulse Ox 98 Oxygen Delivery Method MDM <MATTHIAS Wei - Last Filed: 08/10/24 21:17> MDM MDM Narrative Medical decision making narrative: History from: Patient, spouse review Differential: UTI, pneumonia, electrolyte abnormality, unlikely TIA/CVA based on symptoms Patient has had recent fatigue, nausea and vomiting, and family was concerned about slurred speech over the telephone earlier. His is here in person she reports his speech is normal. He is awake alert, GCS 15, hemodynamically stable. He has no focal neurological deficits. Overall his labs are unremarkable with WBC of 5.6, normal electrolytes and renal function, nonischemic EKG and troponin less than 3. CXR and viral swab are negative. Uri nalysis shows evidence of possible UTI. It was sent for culture and he was prescribed 3 days of Keflex until results return. The rest of his workup has been negative; he has not had any further vomiting and has no abdominal pain or tenderness so I do not think a CT scan is indicated. Family is comfortable with discharge back to [facility]. Lab Data Attestation: I reviewed the patient's lab results. Labs: Laboratory Results - last 24 hr 08/10/24 08/10/24 18:50 20:22 WBC 5.6 RBC 5.34 Hgb 16.6 H Hct 48.8 MCV 91.4 MCH 31.1 MCHC 34.0 RDW Std Deviation 40.5 RDW Coeff of Yevgeniy 12.2 Plt Count 179 MPV 9.8 Immature Gran % (Auto) 0.500 Neut % (Auto) 63.0 Lymph % (Auto) 22.6 [place] % (Auto) 12.3 H Eos % (Auto) 1.2 Baso % (Auto) 0.4 Absolute Neuts (auto) 3.6 Absolute Lymphs (auto) 1.27 Nucleated RBC % 0 Sodium 139 Potassium 3.6 Chloride 104 Carbon Dioxide 31.0 Anion Gap 3 L BUN 22 H Creatinine 1.28 Estim Creat Clear Calc 77.21 Est GFR (MDRD) Af Amer 75 Est GFR (MDRD) Non-Af 62 BUN/Creatinine Ratio 17.2 Glucose 103 Calcium 9.3 Total Bilirubin 0.90 AST 26 ALT 78 H Alkaline Phosphatase 103 Troponin I High Sens < 3 L Total Protein 7.8 Albumin 3.6 Globulin 4.2 Albumin/Globulin Ratio 0.9 Urine Color Straw Urine Clarity Clear Urine pH 5.0 Ur Specific [place] 1.025 Urine Protein 30 H Urine Glucose (UA) Normal Urine Ketones Negative Urine Occult Blood 10 H Urine Nitrite Negative Urine Bilirubin Negative Urine Urobilinogen 4 H Ur Leukocyte Esterase 25 H Urine RBC 0-5 SEEN Urine WBC 5-10 SEEN Ur Squamous Epith Cells 0-5 SEEN Urine Bacteria 1+ Urine Mucus 2+ Radiography Diagnostic Testing: Clinical Impression(s) from Imaging Studies Chest X-Ray 08/10/24 19:25 IMPRESSION: No acute radiographic abnormalities. Electronically Signed: Lance Pearson MD at 20:38 EST , ED attending interpretation of 1-view chest x-ray shows normal heart size, no acute infiltrate. EKG Initial EKG: Attestation: I personally reviewed and interpreted this EKG as follows: Interpretation: Sinus Rhythm and No Acute Injury Pattern Comments: Normal sinus rhythm at 92 bpm Normal intervals, no acute ischemic change <Dr. Axel Steiner, DO - Last Filed: 08/10/24 23:09> [facility] Lab Data Labs: Laboratory Results - last 24 hr 08/10/24 08/10/24 18:50 20:22 WBC 5.6 RBC 5.34 Hgb 16.6 H Hct 48.8 MCV 91.4 MCH 31.1 MCHC 34.0 RDW Std Deviation 40.5 RDW Coeff of Yevgeniy 12.2 Plt Count 179 MPV 9.8 Immature Gran % (Auto) 0.500 Neut % (Auto) 63.0 Lymph % (Auto) 22.6 [place] % (Auto) 12.3 H Eos % (Auto) 1.2 Baso % (Auto) 0.4 Absolute Neuts (auto) 3.6 Absolute Lymphs (auto) 1.27 Nucleated RBC % 0 Sodium 139 Potassium 3.6 Chloride 104 Carbon Dioxide 31.0 Anion Gap 3 L BUN 22 H Creatinine 1.28 Estim Creat Clear Calc 77.21 Est GFR (MDRD) Af Amer 75 Est GFR (MDRD) Non-Af 62 BUN/Creatinine Ratio 17.2 Glucose 103 Calcium 9.3 Total Bilirubin 0.90 AST 26 ALT 78 H Alkaline Phosphatase 103 Troponin I High Sens < 3 L Total Protein 7.8 Albumin 3.6 Globulin 4.2 Albumin/Globulin Ratio 0.9 Urine Color Straw Urine Clarity Clear Urine pH 5.0 Ur Specific [place] 1.025 Urine Protein 30 H Urine Glucose (UA) Normal Urine Ketones Negative Urine Occult Blood 10 H Urine Nitrite Negative Urine Bilirubin Negative Urine Urobilinogen 4 H Ur Leukocyte Esterase 25 H Urine RBC 0-5 SEEN Urine WBC 5-10 SEEN Ur Squamous Epith Cells 0-5 SEEN Urine Bacteria 1+ Urine Mucus 2+ Radiography Diagnostic Testing: Clinical Impression(s) from Imaging Studies Chest X-Ray 08/10/24 19:25 IMPRESSION: No acute radiographic abnormalities. Electronically Signed: Lance Pearson MD at 20:38 EST , Treatment and Re-Evaluation :: I have personally performed a face to face assessment of the patient and have reviewed the JUANITA Note. I performed a substantive portion of the visit including all aspects of the following. My campa findings include: History: Patient presents with fatigue and weakness that began yesterday. Patient states he has been feeling weak all over. Patient admits to some nausea and vomiting. Family states that they talked him on the phone last night and felt like his speech was slow. Family states that his speech is back to normal at this point. Patient denies any headaches. Patient admits to some shortness of breath. Patient also admits to some constipation. Patient denies any fevers or chills. Patient denies any nausea or vomiting. Exam: Vital signs are stable. Patient is afebrile. Patient is in no acute distress. Oral mucosa is pink and moist. Neck is supple. Trachea is midline. There is no JVD. Heart was regular rate and rhythm. Lungs are clear and equal bilaterally. Abdomen is soft. Bowel sounds are normal. There is no tenderness. Cranial nerves II through XII are intact. Strength is 5/5 bilateral in the upper and lower extremities. There are no sensory deficits noted. Medical Decision Making: Differential diagnosis includes stroke, intracranial bleeding, electrolyte abnormality, cardiac dysrhythmia, cardiac ischemia, viral illness, and anxiety. EKG will be obtained to assess for cardiac dysrhythmia and cardiac ischemia. Chest x-ray will be obtained to assess for pneumonia and bronchitis. CBC will be obtained to assess for leukocytosis and anemia. Comprehensive metabolic profile will be obtained to assess for hepatic function, renal function, and electrolyte abnormality. High-sensitivity troponin will be obtained to assess for cardiac ischemia. Urinalysis will be obtained to assess for urinary tract infection and hematuria. COVID-19, influenza, and RSV PCR will be obtained to assess for viral illness. EKG was obtained. On my independent interpretation, it showed a normal sinus rhythm with a rate of 92. MA interval, QRS interval, and QTc intervals were all normal. [place] was normal. There are no acute ST or T wave changes. Portable 1 view chest x-ray was obtained. On my independent interpretation, lung zamudio are clear. There is normal cardiac silhouette. Bony thorax is normal. There is no acute process noted. Radiologist also interpreted the x-ray and agrees. CBC was reviewed and was within normal limits. Comprehensive metabolic profile was reviewed. BUN was slightly elevated at 22. ALT was slightly elevated at 78. The remainder is within normal limits. High-sensitivity troponin was rev iewed and was less than 3. Urinalysis was reviewed. Leukocyte esterase was 25. There are 5-10 white blood cells and 1+ bacteria. Urine culture was ordered. Patient was given a prescription for Keflex. Patient was instructed to drink plenty of fluids. Patient was instructed to follow-up with his primary care physician in 5 to 7 days. Patient was instructed to return if worse in any way. Patient and family understood and were agreeable with plan. All questions were answered. Discharge Plan Triage Chief Complaint: Neuro S/Sx ED Midlevel Provider: Mildred Carmona ED Provider: Axel Steiner Dx/Rx/DC Orders Clinical Impression: Acute UTI, Malaise, Nausea and vomiting Instructions: ED Bladder Infection, Male (Adult) Prescriptions: New cephalexin 500 mg capsule 500 mg PO BID 3 Days Qty: 6 0RF No Action bupropion HCl 300 mg tablet extended release 24 hr 300 mg PO DAILY KRIS-e 400 mg tablet 400 mg PO BID Rx Instructions: administer on an empty stomach ligaplex 1 pill PO DAILY copper 3 mg tablet 3 mg PO DAILY passion flower 250 mg capsule 250 mg PO DAILY PRN (Reason: anxiety) ascorbic acid (vitamin C) [C-1000] 1,000 mg tablet 1 g PO DAILY omega 3-gcy-lff-fish oil [Fish Oil] 1,200 (144-216) mg capsule 1 cap PO DAILY Complex B-100 Tablet Extended Release 1 tab PO DAILY catherine root extract 500 mg capsule 500 mg PO DAILY zinc gluconate 50 mg tablet 50 mg PO DAILY dietary supplement Tablet 1 tab PO DAILY cod liver oil Capsule 1 cap PO DAILY PreserVision AREDS 4,296 mcg-226 mg-90 mg capsule 1 cap PO DAILY betaine HCl 300 mg tablet 300 mg PO DAILY allerplex tumeric curcumin 500mg restful mind support whole food c complex plaquex oral magtein ruesquoj-V66-qtvcw acid-B6 [L-Arginine Men's Health] 1 tab PO DAILY citrulline [L-Citrulline] 1 cap PO DAILY atorvastatin 80 mg Tablet 80 mg PO QHS Qty: 0 0RF bupropion HCl 75 mg Tablet 75 mg PO BID Qty: 0 0RF aspirin 81 mg Tablet,Chewable 81 mg PO DINNER Qty: 0 0RF lisinopril 5 mg Tablet 5 mg PO DAILY Qty: 0 0RF Primary Care Provider: Angy Tran NP Referrals: Angy Tran NP, [facility] [Primary Care Provider] - Activity Restrictions/Additional Instructions: Thanks for letting us take care of you today! Your urine showed signs of infection. It was sent for culture and I prescribed 3 days of an antibiotic until the culture results return. Print Language: Japanese Disposition Disposition: Home, Self Care Discharge Date/Time: 08/10/24 21:36
[2024-08-10 18:56] LABS: Absolute Lymphocyte Count 1.27 X10^3/uL (0.83-4.51); Absolute Neutrophil Count 3.6 X10^3/uL (2.0-7.7); Basophil# 0.02 X10^3/uL; Basophil% 0.4 % (0-1); Eosinophil# 0.07 X10^3/uL; Eosinophils% 1.2 % (0-5); Hematocrit 48.8 % (40-54); Hemoglobin 16.6 g/dL (13.0-16.5); Lymphocyte # 1.27 X10^3/ul (0.83-4.51); Lymphocyte % 22.6 % (19-41); Mean Corpuscular Hgb 31.1 pg (27.0-32.0); Mean Corpuscular Volume 91.4 fL (80-94); Mean Platelet Vol. 9.8 fl (6.2-12.0); Monocyte# 0.69 X10^3/uL; Monocyte% 12.3 % (0-10); NRBC Flagged by Analyzer 0 % (0-5); Neutrophil # 3.55 X10^3/uL (2.7-7.7); Platelet Count 179 K/mm3 (150-450); RBC Distribution Width CV 12.2 % (11.6-14.6); RBC Distribution Width SD 40.5 fl (35.1-43.9); Red Blood Count 5.34 M/mm3 (4.6-6.2); White Blood Count 5.6 K/mm3 (4.4-11.0)
[2024-08-10 19:17] VITALS: BP 109/72; PULSE 94; RESP 22; O2SAT 94
[2024-08-10 19:17] LABS: ALB/GLOB Ratio 0.9 RATIO (0.9-2.4); AST(SGOT) 26 U/L (15-37); Alanine Aminotransfer ALT/SGPT 78 U/L (16-61); Albumin, Serum 3.6 g/dL (3.2-5.0); Alkaline Phosphatase 103 U/L (45-117); Anion Gap 3 (5-15); BUN 22 mg/dL (7-18); BUN/Creat Ratio 17.2 RATIO (10-20); Calcium,Total 9.3 mg/dL (8.5-10.1); Chloride 104 mmol/L (98-107); Creatinine, Serum 1.28 mg/dL (0.70-1.30); EST Glomerular Filtration Rate 62 mL/min (>60); Est Glom Filt Rate - Afr Amer 75 mL/min (>60); Estimated Creatinine Clearance 77.21 ml/min; Globulin 4.2 g/dL (2.2-4.2); Glucose 103 mg/dL (74-106); Potassium 3.6 mmol/L (3.5-5.1); Protein, Total 7.8 g/dL (6.4-8.2); Sodium Level 139 mmol/L (136-145); Troponin-I HS < 3 pg/mL (3.0-78.0)
[2024-08-10 19:22] VITALS: BP 109/72; PULSE 94; RESP 22; TEMP 37.1; O2SAT 97
--- NOTE | 2024-08-10 19:25 | RAD_ITS ---
INDICATION: weakness EXAMINATION/TECHNIQUE: X-RAY - XR Chest 1 View COMPARISON: 06/28/2024. FINDINGS: The lungs are clear. Tortuous and calcified thoracic aorta. The heart is not enlarged. No pleural effusion or pneumothorax. Degenerative changes of the thoracic spine. RAD/Chest 1 View (Portable) IMPRESSION: No acute radiographic abnormalities. Electronically Signed: Lance Pearson MD at 20:38 EST ,
[2024-08-10 20:00] VITALS: BP 103/60; PULSE 95; RESP 25; TEMP 36.8; O2SAT 98
[2024-08-10 20:30] LABS: Color, Urine Straw (Yellow); Glucose, Dipstick Normal (Normal); Ketone-Dipstick Negative (Negative); Leukocyte Esterase-Dipstick 25 /ul (Negative); Nitrite-Dipstick Negative (Negative); Occult Blood-Urine 10 /ul (Negative); Protein-Dipstick 30 mg/dl (Negative); Specific Gravity, Urine 1.025 (1.002-1.030); Urine Bilirubin Dipstick Negative (Negative); Urine Clarity Clear (Clear); Urine Urobilinogen 4 mg/dl (Normal)
[2024-08-10 20:39] LABS: Squamous Epithelial Cells - UA 0-5 SEEN /hpf (0-5)
[2024-08-10 20:40] LABS: Bacteria 1+ /hpf (None Seen)
[2024-08-10 20:41] LABS: Red Blood Cells-Urine 0-5 SEEN /hpf (0-5)
[2024-08-10 20:43] LABS: Mucous, Urine 2+ /hpf (<or=2+); White Blood Cells 5-10 SEEN /hpf (0-5)
[2024-08-10 21:00] VITALS: BP 104/65
[2024-08-10] MEDS: Cephalexin 250 MG Capsule 500 MG PO (21:01)
--- NOTE | 2024-08-10 21:34 | ED.RN ---
rn forgot to take out patients IV due to him getting changed. This RN attempt to [facility] but was not able to reach anyone. RN attempts to call patients and [facility] without any success. Rn called patient. patient states well should I just do it myself. RN states no, please have your nurse take it out. no further instructions or questions
== END 2024-08-10 21:36 | disposition home or self-care (01) ==
PROVIDERS: Physician Assistant; Emergency Provider Emergency Medicine; PCP Registered Nurse; Visit Provider Emergency Medicine
DX: N39.0 Urinary tract infection, site not specified (principal); R53.81 Other malaise; R11.2 Nausea with vomiting, unspecified; Z79.82 Long term (current) use of aspirin; Z79.899 Other long term (current) drug therapy; Z86.73 Personal history of transient ischemic attack (TIA), and cerebral infarction without residual deficits
CPT/HCPCS: 71045; 80053; 81001; 84484; 85025; 87086; 87088; 87631; 93005; 99283; A4216

== ENCOUNTER 2024-09-10 16:03 | Inpatient (IN) | payer MEDICAID, SELFPAY ==
[2024-09-10 16:04] VITALS: BP 124/88; PULSE 109; RESP 18; TEMP 37.2; O2SAT 97; BMI 32.8
--- NOTE | 2024-09-10 16:25 | EDS_ITS ---
HPI HPI - Fall History of Present Illness Chief Complaint: Fall Informant: patient Occured/Mechanism Occurred: Yesterday Mechanism/Context: Yes same level fall Pain/Injury Location: Bilateral shoulders, with right worse than left Pain Location: upper extremity Quality of Pain: Sharp Worsened by: Nothing Relieved by: Nothing Associated Symptoms Associated Symptoms: Positive for Weakness (Chronic); Negative for Parasthesias or Loss of consciousness Narrative Narrative: Patient presents after a fall yesterday and today. Patient complains of pain in both shoulders but worse on the right. Patient denies hitting his head. Patient denies any loss of consciousness. Patient describes his pain as sharp. Patient states it is worse with certain movements. Patient states nothing seems to help with it. Patient admits to some chronic weakness but denies any worsening weakness. Patient has a history of multiple strokes. Patient denies any other injuries. [facility] Medical History Altered mental status Obesity Anxiety and depression History of multiple strokes Hypothyroidism CADASIL Home Medications ?Medication ?Instructions ?Recorded ?Last Taken ?Type ascorbic acid (vitamin C) 1,000 mg 1 g PO DAILY supplement 06/29/24 Unknown History tablet (C-1000) ashwagandha root extract 500 mg 500 mg PO DAILY suppliment 06/29/24 Unknown History capsule betaine HCl 300 mg tablet 300 mg PO DAILY suplement 06/29/24 Unknown History citrulline 1 cap PO DAILY supplement 06/29/24 Unknown History cod liver oil 1 cap PO DAILY cholesterol 06/29/24 Unknown History copper 3 mg tablet 3 mg PO DAILY supplement 06/29/24 Unknown History dietary supplement 1 tab PO DAILY supplement 06/29/24 Unknown History omega 6-vgs-qiq-fish oil 1,200 mg 1 cap PO DAILY cholesterol 06/29/24 Unknown History (144 mg-216 mg) capsule (Fish Oil) passion flower 250 mg capsule 250 mg PO DAILY PRN anxiety 06/29/24 Unknown History s-adenosylmethionine 400 mg tablet 400 mg PO BID depression 06/29/24 Unknown History (KRIS-e) vitamin B complex (Complex B-100 1 tab PO DAILY 06/29/24 Unknown History tablet,extended release) vitamins A,C,N-wnxm-vbvlvz 4,296 1 cap PO DAILY 06/29/24 Unknown History mcg-226 mg-90 mg capsule (PreserVision AREDS) zinc gluconate 50 mg tablet 50 mg PO DAILY 06/29/24 Unknown History aspirin 81 mg chewable tablet 81 mg PO DINNER #0 tabs 07/02/24 Unknown Rx atorvastatin 80 mg tablet 80 mg PO QHS #0 tabs 07/02/24 Unknown Rx lisinopril 5 mg tablet 5 mg PO DAILY #0 tabs 07/02/24 Unknown Rx bisacodyl 10 mg rectal suppository 10 mg IL QDAY PRN 09/10/24 Unknown History bupropion HCl 150 mg 24 hr tablet, 150 mg PO BID 09/10/24 Unknown History extended release magnesium hydroxide 400 mg/5 mL 30 ml PO QDAY PRN 09/10/24 Unknown History oral suspension (Milk of Magnesia) mineral oil (Fleet Mineral Oil 118 ml IL QDAY PRN 09/10/24 Unknown History enema) sodium chloride 3 % nasal mist 1 spray intranasal PRN 09/10/24 Unknown History (Saline Nasal Mist) Allergy/AdvReac Type Severity Reaction Status Date / Time Penicillins Allergy Other Verified 09/10/24 08:32 Family History Father CVA (cerebral vascular accident) Diabetes Heart disease COPD (chronic obstructive pulmonary disease) Brother CVA (cerebral vascular accident) Grandmother CVA (cerebral vascular accident) Mother No problems noted. Surgical History Hx of tonsillectomy Social History household members: none Smoking Status: Never smoker alcohol intake: never substance use type: does not use ROS ROS ED Constitutional Constitutional ED: Denies chills or fever(s) Eyes Eyes: Denies blurry vision or change in vision ENT ENT ED: Reports sore throat; Denies rhinorrhea Cardiovascular Cardiovascular: Denies chest pain or palpitations Respiratory/Chest Respiratory/Chest: Reports cough; Denies dyspnea Gastrointestinal Gastrointestinal: Denies nausea or vomiting Genitourinary Genitourinary ED: Denies dysuria or hematuria Musculoskeletal Musculoskeletal: Denies back pain or neck pain Integumentary Denies abscess or rash Neurologic Neurologic: Denies headache(s) or weakness Allergic/Immunologic Allergic/Immunologic ED: Denies mouth swelling or urticaria EXAM Physical Exam Const Vital Signs: 09/10/24 16:04 09/10/24 16:14 09/10/24 18:08 Temperature 99 F Temperature Source Oral Pulse Rate 109 H 84 Respiratory Rate 18 16 Respiratory Effort Normal Non-Labored Respiratory Depth Normal Respiratory Pattern Normal Blood Pressure 124/88 H 111/73 Blood Pressure Mean 100 85 Pulse Ox 97 97 Oxygen Delivery Method Room Air Room Air Positive well nourished and well developed General Appearance ED: well developed and NAD HEENT Reports normocephalic atraumatic Neck full ROM and supple Resp normal respiratory effort and clear to auscultation bilaterally Cardio regular rate and regular rhythm GI non-tender and non-distended Palpation: soft Neuro oriented x3, CN's II-XII intact bilaterally, moves all extremities and no sensory deficits noted [place] Coma Scale: document GCS findings Spontaneous Obeys Commands Oriented 15 Sensorium / Orientation: alert Motor Exam: general weakness Psych mental status grossly normal and thought process normal MDM MDM MDM Narrative Medical decision making narrative: Differential diagnosis includes stroke, intracranial bleeding, electrolyte abnormality, proximal humerus fracture, and contusion. CT scan of the brain will be obtained to assess for intracranial bleeding and stroke. X-rays of the bilateral shoulders will be obtained to assess for fracture. CBC will be obtained to assess for leukocytosis and anemia. Basic metabolic profile will be obtained to assess for electrolyte abnormality and renal function. Lab Data Attestation: I reviewed the patient's lab results. Lab results narrative: CBC was reviewed and was within normal limits. Basic metabolic profile was reviewed and was within normal limits. Labs: Laboratory Results - last 24 hr 09/10/24 16:55 WBC 5.8 RBC 4.84 Hgb 14.8 Hct 43.4 MCV 89.7 MCH 30.6 MCHC 34.1 RDW Std Deviation 40.2 RDW Coeff of Yevgeniy 12.4 Plt Count 183 MPV 10.0 Immature Gran % (Auto) 0.300 Neut % (Auto) 73.3 H Lymph % (Auto) 10.4 L [place] % (Auto) 14.7 H Eos % (Auto) 1.0 Baso % (Auto) 0.3 Absolute Neuts (auto) 4.2 Absolute Lymphs (auto) 0.60 L Nucleated RBC % 0 Sodium 139 Potassium 4.0 Chloride 106 Carbon Dioxide 28.0 Anion Gap 5 BUN 16 Creatinine 1.10 Estim Creat Clear Calc 91.48 Est GFR (MDRD) Af Amer 89 Est GFR (MDRD) Non-Af 74 BUN/Creatinine Ratio 14.5 Glucose 88 Calcium 9.3 Radiography Diagnostic Testing: Clinical Impression(s) from Imaging Studies Brain CT 09/10/24 16:38 IMPRESSION: 1. No intracranial hemorrhage or other acute process is seen. 2. Very prominent bilateral cerebral and pontine white matter hypodensities are noted, most consistent with chronic ischemic changes of small-vessel disease. 3. Chronic appearing paranasal sinus disease, relatively mild. One or more dose reduction techniques were used (e.g., Automated exposure control, adjustment of the mA and/or kV according to patient size, use of iterative reconstruction technique). Reading Location: [address] Shoulder X-Ray 09/10/24 17:17 IMPRESSION: Right shoulder: At least mild right acromioclavicular joint degenerative changes are seen, with partial joint narrowing noted. The right glenohumeral joint demonstrates only minimal degenerative changes. No joint narrowing is seen. No acute fracture or dislocation is evident. If clinical concern persists, short-term follow-up imaging may be obtained to rule out a currently occult fracture. Left shoulder: Mild left acromioclavicular joint degenerative changes are seen, without significant joint narrowing identified. The left glenohumeral joint demonstrates no significant abnormality. No fracture or dislocation is evident. If clinical concern persists, short-term follow-up imaging may be obtained to rule out a currently occult fracture. Reading Location: [address] Shoulder X-Ray 09/10/24 17:17 IMPRESSION: Right shoulder: At least mild right acromioclavicular joint degenerative changes are seen, with partial joint narrowing noted. The right glenohumeral joint demonstrates only minimal degenerative changes. No joint narrowing is seen. No acute fracture or dislocation is evident. If clinical concern persists, short-term follow-up imaging may be obtained to rule out a currently occult fracture. Left shoulder: Mild left acromioclavicular joint degenerative changes are seen, without significant joint narrowing identified. The left glenohumeral joint demonstrates no significant abnormality. No fracture or dislocation is evident. If clinical concern persists, short-term follow-up imaging may be obtained to rule out a currently occult fracture. Reading Location: [address] scan of the brain was obtained. There is no acute intracranial abnormality. There are chronic changes noted. This was interpreted by the radiologist and was also independently reviewed by myself. X-rays of the right shoulder were obtained. There are 4 views. On my independent interpretation, there is no acute fracture or dislocation noted. There are some mild degenerative changes noted. Radiologist also interpreted the x-rays and agrees. X-rays of the left shoulder were obtained. There are 4 views. On my independent interpretation, there is no acute fracture or dislocation noted. There are some mild degenerative changes noted. Radiologist also interpreted the x-rays and agrees. Treatment and Re-Evaluation Narrative: Patient was advised of his findings. Patient was instructed to follow-up with his primary care physician in 5 to 7 days. Patient will be discharged back to his extended care facility. Patient and family understood and were agreeable with the plan. All questions were answered. Discharge Plan Triage Chief Complaint: Fall ED Provider: Axel Steiner Dx/Rx/DC Orders Clinical Impression: Contusion of right shoulder region, CADASIL, Fall Instructions: ED Shoulder Bruise Prescriptions: No Action bisacodyl 10 mg suppository 10 mg IL QDAY PRN bupropion HCl 150 mg tablet extended release 24 hr 150 mg PO BID mineral oil [Fleet Mineral Oil] Enema 118 ml IL QDAY PRN Rx Instructions: discard any unused portion magnesium hydroxide [Milk of Magnesia] 400 mg/5 mL suspension 30 ml PO QDAY PRN Saline Nasal Mist 3 % mist 1 spray intranasal PRN KRIS-e 400 mg tablet 400 mg PO BID Rx Instructions: administer on an empty stomach copper 3 mg tablet 3 mg PO DAILY passion flower 250 mg capsule 250 mg PO DAILY PRN (Reason: anxiety) ascorbic acid (vitamin C) [C-1000] 1,000 mg tablet 1 g PO DAILY omega 2-tew-nyq-fish oil [Fish Oil] 1,200 (144-216) mg capsule 1 cap PO DAILY Complex B-100 Tablet Extended Release 1 tab PO DAILY ashwagandha root extract 500 mg capsule 500 mg PO DAILY zinc gluconate 50 mg tablet 50 mg PO DAILY dietary supplement Tablet 1 tab PO DAILY cod liver oil Capsule 1 cap PO DAILY PreserVision AREDS 4,296 mcg-226 mg-90 mg capsule 1 cap PO DAILY betaine HCl 300 mg tablet 300 mg PO DAILY citrulline [L-Citrulline] 1 cap PO DAILY atorvastatin 80 mg Tablet 80 mg PO QHS Qty: 0 0RF aspirin 81 mg Tablet,Chewable 81 mg PO DINNER Qty: 0 0RF lisinopril 5 mg Tablet 5 mg PO DAILY Qty: 0 0RF Primary Care Provider: Angy Tran NP Referrals: Angy Tran NP, [facility] [employer] [Primary Care Provider] - 5-7 Days Print Language: Palauan Disposition Disposition: Home, Self Care
--- NOTE | 2024-09-10 16:38 | CT_ITS ---
PROCEDURE: BRAIN/HEAD WITHOUT CONTRAST REASON FOR EXAM: Injury. Pain. TECHNIQUE: CT of the head without contrast. COMPARISON: None available. FINDINGS: No intracranial hemorrhage, mass, or mass effect is seen. Ventricles appear symmetric and within the expected range for age. No extra-axial fluid collection is seen. Very prominent bilateral cerebral and pontine white matter hypodensities are noted, most consistent w ith chronic ischemic changes of small-vessel disease. No orbital pathology is noted. No fracture site is identified. Mild mucosal thickening is seen of the bilateral ethmoid and right maxillary sinus. No air-fluid lev el is noted. Remaining portions of the visualized paranasal sinuses appear clear, as do the mastoid air cells. CT/Brain/Head without Contrast IMPRESSION: 1. No intracranial hemorrhage or other acute process is seen. 2. Very prominent bilateral cerebral and pontine white matter hypodensities are noted, most consistent with chronic ischemic changes of small-vessel disease. 3. Chronic appearing paranasal sinus disease, relatively mild. One or more dose reduction techniques were used (e.g., Automated exposure contr ol, adjustment of the mA and/or kV according to patient size, use of iterative reconstruction technique). Reading Location: [id number]
--- NOTE | 2024-09-10 17:17 | RAD_ITS ---
PROCEDURE: SHOULDER MIN 2 VIEWS; both right shoulder series and left shoulder series. REASON FOR EXAM: Shoulder injuries. Pain. TECHNIQUE: Four-view right shoulder series and Four-view left shoulder series (combined dictation). COMPARISON: None. RAD/Shoulder min 2 Views IMPRESSION: Right shoulder: At least mild right acromioclavicular joint degenerative changes are seen, with partial joint narrowing noted. The right glenohumeral joint demonstrates only minimal degenerative changes. N o joint narrowing is seen. No acute fracture or dislocation is evident. If clinical concern persists, short-term follow-up imaging may be obtained to r ule out a currently occult fracture. Left shoulder: Mild left acromioclavicular joint degenerative changes are seen, without signif icant joint narrowing identified. The left glenohumeral joint demonstrates no significant abnormality. No fracture or dislocation is evident. If clinical concern persists, short-ter m follow-up imaging may be obtained to rule out a currently occult fracture. Reading Location: [id number]
--- NOTE | 2024-09-10 17:17 | RAD_ITS ---
PROCEDURE: SHOULDER MIN 2 VIEWS; both right shoulder series and left shoulder series. REASON FOR EXAM: Shoulder injuries. Pain. TECHNIQUE: Four-view right shoulder series and Four-view left shoulder series (combined dictation). COMPARISON: None. RAD/Shoulder min 2 Views IMPRESSION: Right shoulder: At least mild right acromioclavicular joint degenerative changes are seen, with partial joint narrowing noted. The right glenohumeral joint demonstrates only minimal degenerative changes. N o joint narrowing is seen. No acute fracture or dislocation is evident. If clinical concern persists, short-term follow-up imaging may be obtained to r ule out a currently occult fracture. Left shoulder: Mild left acromioclavicular joint degenerative changes are seen, without signif icant joint narrowing identified. The left glenohumeral joint demonstrates no significant abnormality. No fracture or dislocation is evident. If clinical concern persists, short-ter m follow-up imaging may be obtained to rule out a currently occult fracture. Reading Location: [id number]
[2024-09-10 17:23] LABS: Absolute Neutrophil Count 4.2 X10^3/uL (2.0-7.7); Basophil# 0.02 X10^3/uL; Basophil% 0.3 % (0-1); Eosinophil# 0.06 X10^3/uL; Hematocrit 43.4 % (40-54); Hemoglobin 14.8 g/dL (13.0-16.5); Lymphocyte % 10.4 % (19-41); Mean Corp Hgb Conc 34.1 g/dL (32-36); Mean Corpuscular Hgb 30.6 pg (27.0-32.0); Mean Corpuscular Volume 89.7 fL (80-94); Monocyte# 0.85 X10^3/uL; Monocyte% 14.7 % (0-10); NRBC Flagged by Analyzer 0 % (0-5); Neutrophil # 4.24 X10^3/uL (2.7-7.7); Neutrophil % 73.3 % (47-70); POSITIVE DIFFERENTIAL YES; Platelet Count 183 K/mm3 (150-450); RBC Distribution Width CV 12.4 % (11.6-14.6); RBC Distribution Width SD 40.2 fl (35.1-43.9); Red Blood Count 4.84 M/mm3 (4.6-6.2); White Blood Count 5.8 K/mm3 (4.4-11.0)
[2024-09-10 17:43] LABS: Anion Gap 5 (5-15); BUN 16 mg/dL (7-18); BUN/Creat Ratio 14.5 RATIO (10-20); Calcium,Total 9.3 mg/dL (8.5-10.1); Chloride 106 mmol/L (98-107); EST Glomerular Filtration Rate 74 mL/min (>60); Est Glom Filt Rate - Afr Amer 89 mL/min (>60); Estimated Creatinine Clearance 91.48 ml/min; Glucose 88 mg/dL (74-106); Sodium Level 139 mmol/L (136-145)
[2024-09-10 18:08] VITALS: BP 111/73; PULSE 84; RESP 16; O2SAT 97
[2024-09-10] MEDS: Ondansetron 4 MG/2 ML Vial IV (18:33)
--- NOTE | 2024-09-10 19:37 | CM.ED ---
Social Work SW met with patient and . stated that patient was in need of a wheelchair and was uncertain how to get him one. SW informed and patient of process to apply for a custom wheelchair through the SNF, to ask for a care conference to discuss and who she should speak with at the nursing facility. No further questions at this time. Tessie Elizabeth, SUPPLY CHAIN DESIGN MANAGER, SENIOR CLINICAL RESEARCH ASSOCIATE
[2024-09-10 20:00] VITALS: BP 115/78; PULSE 78
[2024-09-10 22:00] VITALS: BP 115/74; PULSE 78; RESP 16; TEMP 36.6; O2SAT 98
[2024-09-10] MEDS: LORazepam 0.5 MG Tablet PO (22:03)
--- NOTE | 2024-09-10 22:14 | ED.RN ---
Pt's asked for meds for anxiety, pt becoming restless. Med given without difficulty.
--- NOTE | 2024-09-10 22:48 | ED.RN ---
Nurse to nurse called to [facility] at [facility]
[2024-09-11] VITALS (11 sets, daily range): BP systolic 89–152; BP diastolic 60–86; PULSE 62–100; RESP 14–25; TEMP 37–38.2; O2SAT 92–100; BMI 30.5
--- NOTE | 2024-09-11 00:45 | RAD_ITS ---
PROCEDURE: CHEST 1 VIEW (PORTABLE) REASON FOR EXAM: Unresponsive episode after coughing. TECHNIQUE: Frontal view of the chest. COMPARISON: 08/10/2024 FINDINGS: Intermediate lung volumes. Minimal atelectasis within the right lung base. No focal airspace consol idation, pneumothorax or pleural effusion is seen. Remaining lung markings otherwise appears stable. Heart size and great ve ssels are within normal limits. The osseous thorax appears intact. Old rib fracture deformities are seen on the left. EKG wires overlie the chest. RAD/Chest 1 View (Portable) IMPRESSION: No acute cardiopulmonary process identified. Chronic changes, as above Reading Location: [id number]
--- NOTE | 2024-09-11 01:05 | ED.RN ---
[facility] and stated that pt was having a seizure. This RN into room, pt at baseline. Stated that pt had coughing fit, turned red and had clenched fists. RN called back to room shortly after for another episode. EMS stated pt had another episode and was showing signs of confusion. Dr. Nuno made aware, orders to admit for seizure workup. [facility] notified.
--- NOTE | 2024-09-11 01:18 | PCM.HP.STD ---
[facility] - General General Date of Admission: 09/11/24 Date of Service: 09/11/24 Chief Complaint: Seizure and Fall with Shoulder Pain. 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 is?a rare genetic disease that affects the brain's blood vessels) causing multiple TIA's/CVA's beginning at age 44 - with his father having been afflicted with the same illness; with most recent admission here from June 30, 2024 to July 02, 2024 for Acute CVA evident on MRI that revealed a small focus of ischemic change in the Left parietal white matter along with extensive chronic microvascular changes on daily BASA (as CADASIL patients are considered poor candidates for TNK and dual antiplatelet therapy) with patient currently residing at [facility] due to cognitive impairment, memory deficit and diffuse spasticity causing patient to ambulate with a walker at baseline with referral made for him to follow up at the [facility] with vascular neurology, depression with anxiety; on bupropion and OA who initially presented to [facility] ER this afternoon at ~4:00 PM after he fell yesterday and today with complaints of bilateral shoulder pain (Right>Left). The original ER physician noted the patient denied head trauma or LOC with his fall but he did complain of sharp pain in both shoulders that was made worse with movement with nothing seeming to make the pain better. He additionally admitted to sore throat and nonproductive cough but he denied headache, runny nose, fever, chills, abdominal pain, nausea, vomiting, diarrhea, chest pain, SOB, dysuria or history of seizures. He then underwent CT scan of the brain that revealed no acute intracranial hemorrhage or other acute process seen with very prominent bilateral cerebral and pontine white matter hypodensities noted, most consistent with chronic ischemic changes of small vessel disease with chronic appearing paranasal sinus disease that appeared relatively mild along with 4-view X-rays of the shoulder that revealed no acute fracture or dislocation with at least mild Right and Left acromioclavicular joint degenerative changes with partial joint narrowing noted. He was noted to have a low-grade fever of 99 degrees Fahrenheit present on admission with otherwise normal vital signs and laboratory studies and he was set up to be discharged back to [facility]. Unfortunately, when EMS was lifting him into their vehicle he had a witnessed tonic-clonic seizure followed by a postictal period of confusion with patient then brought back into the ER for further evaluation and treatment with patient then treated with IV lorazepam. There was no report of associated bowel or bladder incontinence or tongue laceration. Both the patient and his deny a history of seizures. The hospitalist service was then contacted at ~1:00 AM to admit this patient for formal seizure workup. His was present at the bedside and she helped augment history and though the patient denied dementia she affirmed that he did have dementia, and then he reluctantly agreed with her. He was then admitted to the PCU for ongoing care for a stay that is expected to extend beyond 2 midnights. COUNTS INCLUDE 234 BEDS AT THE [facility] Medical History Altered mental status Obesity Anxiety and depression History of multiple strokes Hypothyroidism CADASIL Home Medications ?Medication ?Instructions ?Recorded ?Last Taken ?Type ascorbic acid (vitamin C) 1,000 mg 1 g PO DAILY supplement 06/29/24 Unknown History tablet (C-1000) ashwagandha root extract 500 mg 500 mg PO DAILY suppliment 06/29/24 Unknown History capsule betaine HCl 300 mg tablet 300 mg PO DAILY suplement 06/29/24 Unknown History citrulline 1 cap PO DAILY supplement 06/29/24 Unknown History cod liver oil 1 cap PO DAILY cholesterol 06/29/24 Unknown History copper 3 mg tablet 3 mg PO DAILY supplement 06/29/24 Unknown History omega 2-qri-xkb-fish oil 1,200 mg 1 cap PO DAILY cholesterol 06/29/24 Unknown History (144 mg-216 mg) capsule (Fish Oil) passion flower 250 mg capsule 250 mg PO DAILY PRN anxiety 06/29/24 Unknown History s-adenosylmethionine 400 mg tablet 400 mg PO BID depression 06/29/24 Unknown History (KRIS-e) vitamin B complex (Complex B-100 1 tab PO DAILY 06/29/24 Unknown History tablet,extended release) vitamins A,C,P-haha-jouvot 4,296 1 cap PO DAILY 06/29/24 Unknown History mcg-226 mg-90 mg capsule (PreserVision AREDS) zinc gluconate 50 mg tablet 50 mg PO DAILY 06/29/24 Unknown History aspirin 81 mg chewable tablet 81 mg PO DINNER #0 tabs 07/02/24 Unknown Rx atorvastatin 80 mg tablet 80 mg PO QHS #0 tabs 07/02/24 Unknown Rx lisinopril 5 mg tablet 5 mg PO DAILY #0 tabs 07/02/24 Unknown Rx bisacodyl 10 mg rectal suppository 10 mg KS QDAY PRN constipation 09/10/24 Unknown History bupropion HCl 150 mg 24 hr tablet, 150 mg PO BID 09/10/24 Unknown History extended release magnesium hydroxide 400 mg/5 mL 30 ml PO QDAY PRN stomach upset 09/10/24 Unknown History oral suspension (Milk of Magnesia) mineral oil (Fleet Mineral Oil 118 ml KS QDAY PRN constipation 09/10/24 Unknown History enema) sodium chloride 3 % nasal mist 1 spray intranasal DAILY PRN PRN 09/10/24 Unknown History (Saline Nasal Mist) congestion Allergy/AdvReac Type Severity Reaction Status Date / Time Penicillins Allergy Other Verified 09/10/24 08:32 Family History Father CVA (cerebral vascular accident) Diabetes Heart disease COPD (chronic obstructive pulmonary disease) Brother CVA (cerebral vascular accident) Grandmother CVA (cerebral vascular accident) Mother No problems noted. Surgical History Hx of tonsillectomy Social History (Updated 09/11/24 @ 03:27 by Alana Ceja) household members: none Smoking Status: Never smoker alcohol intake: never substance use type: does not use ROS ROS Narrative Review of Systems: Constitutional: Patient was noted to have a low-grade temperature of 99 degrees Fahrenheit present on admission. He denies chills. Eyes: Patient denies changes in vision or discharge from eyes. ENT: Patient admits to sore throat but he denies runny nose or ear pain. Resp: Patient admits to intermittent nonproductive cough but he denies SOB. CV: Patient denies chest pain, palpitations, heart racing or LE edema. GI: Patient denies abdominal pain, nausea, vomiting, diarrhea or constipation. : Patient denies dysuria, hematuria or urinary frequency. MSK: Patient has chronic muscle spasticity along with acute shoulder pain after recent falls as per HPI. Skin: Patient has no evidence of rash, abscess, wound or jaundice. Psych: Patient denies symptoms of uncontrolled depression or anxiety. Neuro: Patient had a witnessed seizure but he denies headache, paresthesias or other new focal neurologic deficits. Allergy: Patient denies lip swelling, tongue swelling or urticaria. Hematology: Patient denies easy bleeding or easy bruisability. Endocrinology: Patient denies polyuria, polydipsia or polyphagia. 14 point ROS otherwise negative except for positives noted above in HPI. Vital Signs Vital Signs Vital Signs: 09/10/24 16:04 09/10/24 16:14 09/10/24 18:08 Temperature 99 F Temperature Source Oral Pulse Rate 109 H 84 Respiratory Rate 18 16 Respiratory Effort Normal Non-Labored Respiratory Depth Normal Respiratory Pattern Normal Blood Pressure 124/88 H 111/73 Blood Pressure Mean 100 85 Pulse Ox 97 97 Oxygen Delivery Method Room Air Room Air 09/10/24 20:00 09/10/24 22:00 09/11/24 01:04 Temperature 98 F 99.5 F H Temperature Source Oral Pulse Rate 78 78 100 Respiratory Rate 16 18 Respiratory Effort Respiratory Depth Respiratory Pattern Blood Pressure 115/78 115/74 89/60 L Blood Pressure Mean 90 87 69 Pulse Ox 98 97 Oxygen Delivery Method Room Air Weight Weight: 228 lb 6.382 oz Body Mass Index (BMI) 32.8 Physical Exam Const alert, oriented x3 and no apparent distress Constitutional Narrative: Obese with chronically ill appearance. General Appearance: cooperative HEENT normocephalic, head/scalp atraumatic, hearing grossly normal bilaterally and moist oral mucous membranes Eyes PERRL, EOMs intact bilaterally and conjunctivae normal Neck no lymphadenopathy and supple Resp normal respiratory effort, no retractions, no use of accessory muscles and clear to auscultation bilaterally Cardio regular rate and regular rhythm GI normal to inspection, nondistended, normoactive bowel sounds, soft to palpation, non-tender and non-distended GI Narrative: Obese. Extremity normal to inspection Skin Skin Narrative: Patient has no evidence of rash, abscess, wound or jaundice. Neuro oriented x3, CN's II-XII intact bilaterally, moves all extremities and no focal motor deficits Sensorium / Orientation: awake, alert, oriented to person, oriented to place and oriented to time Speech: speech normal Psych affect normal Results Medical Records Data Attestation: I reviewed the patient's medical records Lab / Micro Data Attestation: I reviewed the patient's lab results. 09/10/24 16:55 09/10/24 16:55 Labs: Laboratory Results - last 24 hr 09/10/24 16:55: WBC 5.8, RBC 4.84, Hgb 14.8, Hct 43.4, MCV 89.7, MCH 30.6, MCHC 34.1, RDW Std Deviation 40.2, RDW Coeff of Yevgeniy 12.4, Plt Count 183, MPV 10.0, Immature Gran % (Auto) 0.300, Neut % (Auto) 73.3 H, Lymph % (Auto) 10.4 L, [place] % (Auto) 14.7 H, Eos % (Auto) 1.0, Baso % (Auto) 0.3, Absolute Neuts (auto) 4.2, Absolute Lymphs (auto) 0.60 L, Nucleated RBC % 0, Sodium 139, Potassium 4.0, Chloride 106, Carbon Dioxide 28.0, Anion Gap 5, BUN 16, Creatinine 1.10, Estim Creat Clear Calc 91.48, Est GFR (MDRD) Af Amer 89, Est GFR (MDRD) Non-Af 74, BUN/Creatinine Ratio 14.5, Glucose 88, Calcium 9.3 Imaging Radiology Impression Brain CT 09/10/24 16:38 IMPRESSION: 1. No intracranial hemorrhage or other acute process is seen. 2. Very prominent bilateral cerebral and pontine white matter hypodensities are noted, most consistent with chronic ischemic changes of small-vessel disease. 3. Chronic appearing paranasal sinus disease, relatively mild. One or more dose reduction techniques were used (e.g., Automated exposure control, adjustment of the mA and/or kV according to patient size, use of iterative reconstruction technique). Reading Location: [address] Shoulder X-Ray 09/10/24 17:17 IMPRESSION: Right shoulder: At least mild right acromioclavicular joint degenerative changes are seen, with partial joint narrowing noted. The right glenohumeral joint demonstrates only minimal degenerative changes. No joint narrowing is seen. No acute fracture or dislocation is evident. If clinical concern persists, short-term follow-up imaging may be obtained to rule out a currently occult fracture. Left shoulder: Mild left acromioclavicular joint degenerative changes are seen, without significant joint narrowing identified. The left glenohumeral joint demonstrates no significant abnormality. No fracture or dislocation is evident. If clinical concern persists, short-term follow-up imaging may be obtained to rule out a currently occult fracture. Reading Location: [address] Shoulder X-Ray 09/10/24 17:17 IMPRESSION: Right shoulder: At least mild right acromioclavicular joint degenerative changes are seen, with partial joint narrowing noted. The right glenohumeral joint demonstrates only minimal degenerative changes. No joint narrowing is seen. No acute fracture or dislocation is evident. If clinical concern persists, short-term follow-up imaging may be obtained to rule out a currently occult fracture. Left shoulder: Mild left acromioclavicular joint degenerative changes are seen, without significant joint narrowing identified. The left glenohumeral joint demonstrates no significant abnormality. No fracture or dislocation is evident. If clinical concern persists, short-term follow-up imaging may be obtained to rule out a currently occult fracture. Reading Location: [address] Assessment & Plan Assessment/Plan (1) Seizure: (2) Fall: QUALIFIERS: Encounter type: initial encounter Qualified Code(s): W19.XXXA - Unspecified fall, initial encounter (3) CADASIL: (4) History of multiple strokes: (5) Contusion of right shoulder region: QUALIFIERS: Encounter type: initial encounter Qualified Code(s): S40.011A - Contusion of right shoulder, initial encounter (6) Sinusitis: QUALIFIERS: Chronicity: chronic Sinusitis location: unspecified location Qualified Code(s): J32.9 - Chronic sinusitis, unspecified PLAN: Plan 1. Apparently new-onset Seizure disorder with witnessed tonic-clonic seizure followed by postictal period of confusion that has since resolved - Admit to PCU under seizure precautions. Give Keppra 1g IV BID. Give Ativan 2 mg IV q. 4h prn for breakthrough seizure activity. Check EEG to confirm suspicion. Check MRI of the brain to evaluate for recurrent CVA. We will consult [facility] to see this patient on-rounds in the AM with help appreciated in advance. Check B12 and folate levels to evaluate for possible nutritional deficiency that may be augmenting his problems. Give acetaminophen prn for pain or fever. 2. Recent Fall with subsequent Bilateral Shoulder Pain due to contusions with soft tissue injury without evidence of acute fracture or dislocation on X-rays suspected to be due to #1 in the setting of chronic ambulatory dysfunction with muscle spasticity causing patient to ambulate with walker at baseline - PT/OT and Case Management to consult and treat on-rounds in AM for further recommendations with help appreciated in advance. 3. 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 is?a rare genetic disease that affects the brain's blood vessels) causing multiple TIA's/CVA's beginning at age 44; with most recent admission here from June 30, 2024 to July 02, 2024 for Acute CVA evident on MRI that revealed a small focus of ischemic change in the Left parietal white matter along with extensive chronic microvascular changes on daily BASA (as CADASIL patients are considered poor candidates for TNK and dual-antiplatelet therapy) with patient currently residing at [facility] due to dementia with cognitive impairment, memory deficit and diffuse spasticity precipitating #1 & #2 - Continue conservative medical management. 4. CT evidence of chronic appearing nasal sinus disease on CT with low-grade fever of 99 degrees Fahrenheit noted on admission complicating #1 - #3 - Start empiric IV doxycycline given patient's listed allergy to PCN (?) and monitor for improvement. 5. Obesity; with BMI of 32.8 this admission compounding #1 - #4 - Weight loss will be recommended. Check TSH. This complicates his case and may hamper recovery. 6. Essential Hypertension; on lisinopril - Hold lisinopril until acute CVA is ruled out on MRI to allow for 'permissive hypertension'. 7. Hyperlipidemia; on atorvastatin - Resume statin and check Lipid Profile. 8. History of hypothyroidism; with patient not on treatment at this time - Check TSH to confirm status. 9. Depression with anxiety; on bupropion - Maintain current regimen. 10. OA - Give acetaminophen prn. 11. DVT prophylaxis - Heparin 5,000U sq BID plus SCD's. Total time: Approximately (but not less than) 75 minutes. Charges/Coding Visit Charges Inpatient E&M: 27928 Init Hosp L3
[2024-09-11] MEDS: LORazepam 0.5 MG Tablet PO (02:03)
--- NOTE | 2024-09-11 02:14 | MRI_ITS ---
PROCEDURE: BRAIN WITHOUT CONTRAST REASON FOR EXAM: Frequent falls; left-sided neuro deficits. TECHNIQUE: Multiplanar, multisequence MRI of the brain without intravenous gadolinium-based contrast. COMPARISON: 09/10/2024 CT. FINDINGS: Small bilateral centrum semiovale foci of restricted diffusion compatible with acute infarctions. No evidence of acute hemorrhage. Moderate global parenchymal atrophy. Periventricular white matter T2/FLAIR hyperintensity likely representing severe chronic microvascular ischemia. Chronic pontine infarction. Mild right maxillary sinus mucosal thickening. Mild ethmoid sinus mucosal thickening. The mastoid air cells are well aerated. The orbits are unremarkable. MRI/Brain without Contrast IMPRESSION: Small bilateral centrum semiovale foci of restricted diffusion compatible with acute infarctions. Parenchymal atrophy, severe chronic microvascular ischemia, and infarctions in combination are not specific for, but can be seen with CADASIL especially given the degree of these findings in a patient of this age. Critical results were communicated to the navigator to be communicated to the o rdering provider. No number was available for the radiologist directly called the ordering provider. Reading Location: [id number]
[2024-09-11] MEDS: 0.9% Normal Saline (1000mL) 1,000 ML 70 ML IV (03:55)
[2024-09-11] MEDS: levETIRAcetam IV 1,000 MG/100 ML BAG 400 MG IV ×3 (03:55→21:45)
[2024-09-11 07:31] LABS: Absolute Neutrophil Count 3.5 X10^3/uL (2.0-7.7); Basophil# 0.01 X10^3/uL; Basophil% 0.2 % (0-1); Eosinophil# 0.01 X10^3/uL; Eosinophils% 0.2 % (0-5); Hematocrit 40.8 % (40-54); Hemoglobin 13.6 g/dL (13.0-16.5); Lymphocyte % 17.2 % (19-41); Mean Corp Hgb Conc 33.3 g/dL (32-36); Mean Corpuscular Hgb 30.2 pg (27.0-32.0); Mean Corpuscular Volume 90.5 fL (80-94); Mean Platelet Vol. 10.5 fl (6.2-12.0); Monocyte# 0.82 X10^3/uL; Monocyte% 15.6 % (0-10); NRBC Flagged by Analyzer 0 % (0-5); Neutrophil # 3.49 X10^3/uL (2.7-7.7); Neutrophil % 66.6 % (47-70); Platelet Count 160 K/mm3 (150-450); RBC Distribution Width CV 12.7 % (11.6-14.6); RBC Distribution Width SD 41.5 fl (35.1-43.9); Red Blood Count 4.51 M/mm3 (4.6-6.2); White Blood Count 5.2 K/mm3 (4.4-11.0)
[2024-09-11 08:06] LABS: ALB/GLOB Ratio 0.9 RATIO (0.9-2.4); AST(SGOT) 29 U/L (15-37); Alanine Aminotransfer ALT/SGPT 64 U/L (16-61); Albumin, Serum 3.3 g/dL (3.2-5.0); Alkaline Phosphatase 97 U/L (45-117); Anion Gap 9 (5-15); BUN 17 mg/dL (7-18); BUN/Creat Ratio 15.7 RATIO (10-20); Calcium,Total 8.7 mg/dL (8.5-10.1); Chloride 108 mmol/L (98-107); Cholesterol 98 mg/dL (200); Creatinine, Serum 1.08 mg/dL (0.70-1.30); EST Glomerular Filtration Rate 75 mL/min (>60); Est Glom Filt Rate - Afr Amer 91 mL/min (>60); Estimated Creatinine Clearance 92.85 ml/min; Globulin 3.7 g/dL (2.2-4.2); Glucose 104 mg/dL (74-106); High Density Lipoprotein 37 mg/dL; Potassium 3.7 mmol/L (3.5-5.1); Sodium Level 140 mmol/L (136-145); Thyroid Stim Hormone (TSH) 0.795 uIU/mL (0.358-3.740); Triglycerides 62 mg/dL; Very Low Density Lipoprotein 12 mg/dL (5-40)
[2024-09-11 08:55] LABS: Vitamin B12 508 pg/mL (211-911)
--- NOTE | 2024-09-11 11:10 | NEURO.CONS ---
Assessment and Plan: Neuro Assessment/Plan MASSIMO MARK is a 53 M with a past medical history of CADASIL, one standalone seizure, being evaluated by Teleneurology for recent increase in confusion, falls, and now seizures in the ED. He has had several more clinical seizure and will be loaded with KEppra. In addition his EEG is concerning for subclinical events and given his increased confusion, somnolence, and falls over the past several days, concern is for subclinical seizures, and status. - loading with 40mg/kg keppra for a total 4000mg (1000mg at 3am, 1000mg at 11am, and an addition 2000mg) and cont 1000mg BID at night - rec infection screen with UA - recommend MRI Brain w/wo con Transfer for OC for cEEG given clinically patient is persistently confused I personally attended this patient and spent a total time of 45minutes evaluating this patient including clinical assessment, review of chart, medical history imaging, and determining appropriate treatment and workup. 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 is?a rare genetic disease that affects the brain's blood vessels) causing multiple TIA's/CVA's beginning at age 44 - with his father having been afflicted with the same illness; with most recent admission here from June 30, 2024 to July 02, 2024 for Acute CVA evident on MRI that revealed a small focus of ischemic change in the Left parietal white matter along with extensive chronic microvascular changes on daily BASA (as CADASIL patients are considered poor candidates for TNK and dual antiplatelet therapy) with patient currently residing at [facility] due to cognitive impairment, memory deficit and diffuse spasticity causing patient to ambulate with a walker at baseline with referral made for him to follow up at the [facility] with vascular neurology, depression with anxiety; on bupropion and OA who initially presented to [facility] ER this afternoon at ~4:00 PM after he fell yesterday and today with complaints of bilateral shoulder pain (Right>Left). The original ER physician noted the patient denied head trauma or LOC with his fall but he did complain of sharp pain in both shoulders that was made worse with movement with nothing seeming to make the pain better. He additionally admitted to sore throat and nonproductive cough but he denied headache, runny nose, fever, chills, abdominal pain, nausea, vomiting, diarrhea, chest pain, SOB, dysuria or history of seizures. He then underwent CT scan of the brain that revealed no acute intracranial hemorrhage or other acute process seen with very prominent bilateral cerebral and pontine white matter hypodensities noted, most consistent with chronic ischemic changes of small vessel disease with chronic appearing paranasal sinus disease that appeared relatively mild along with 4-view X-rays of the shoulder that revealed no acute fracture or dislocation with at least mild Right and Left acromioclavicular joint degenerative changes with partial joint narrowing noted. He was noted to have a low-grade fever of 99 degrees Fahrenheit present on admission with otherwise normal vital signs and laboratory studies and he was set up to be discharged back to [facility]. Unfortunately, when EMS was lifting him into their vehicle he had a witnessed tonic-clonic seizure followed by a postictal period of confusion with patient then brought back into the ER for further evaluation and treatment with patient then treated with IV lorazepam. There was no report of associated bowel or bladder incontinence or tongue laceration. Both the patient and his deny a history of seizures. The hospitalist service was then contacted at ~1:00 AM to admit this patient for formal seizure workup. His was present at the bedside and she helped augment history and though the patient denied dementia she affirmed that he did have dementia, and then he reluctantly agreed with her. He was then admitted to the PCU for ongoing care for a stay that is expected to extend beyond 2 midnights. Neurologic History: Has had several falls the last few days, one was from wheelchair, leaning forward, and one was walking off the curb. The wheelchair is only for walking at night because of exhaustion at night. Usually walks with a walker. Able to talk ok and respond appropriately. Was doing ok, and then had two seizures loading him up. Has remained confused since then. Had a seizure in the middle of the night. With that event, he tightened up and was jerking on both sides, no ictal cry. Was not evaluated by doctor after. Patient is not established with [facility] for the CADASIL. CADASIL dx was in 2017. In the Ed he would clench his toes and the L arm would lift and Since he has been in the hospital, he coughs, stops breathing, and then tightens up, gets red, and lasts for 20 sec. Eyes and head will toward the window. Patient was having theose events in the ER (had 5 events in the ED). Since coming up at 3:30 he has had another 4 events. Starting Sat he was not acting himself and was [facility] Medical History Altered mental status Obesity Anxiety and depression History of multiple strokes Hypothyroidism CADASIL Home Medications ?Medication ?Instructions ?Recorded ?Last Taken ?Type ascorbic acid (vitamin C) 1,000 mg 1 g PO DAILY supplement 06/29/24 Unknown History tablet (C-1000) ashwagandha root extract 500 mg 500 mg PO DAILY suppliment 06/29/24 Unknown History capsule betaine HCl 300 mg tablet 300 mg PO DAILY suplement 06/29/24 Unknown History citrulline 1 cap PO DAILY supplement 06/29/24 Unknown History cod liver oil 1 cap PO DAILY cholesterol 06/29/24 Unknown History copper 3 mg tablet 3 mg PO DAILY supplement 06/29/24 Unknown History omega 4-ded-gow-fish oil 1,200 mg 1 cap PO DAILY cholesterol 06/29/24 Unknown History (144 mg-216 mg) capsule (Fish Oil) passion flower 250 mg capsule 250 mg PO DAILY PRN anxiety 06/29/24 Unknown History s-adenosylmethionine 400 mg tablet 400 mg PO BID depression 06/29/24 Unknown History (KRIS-e) vitamin B complex (Complex B-100 1 tab PO DAILY 06/29/24 Unknown History tablet,extended release) vitamins A,C,N-nnsn-oxjjvm 4,296 1 cap PO DAILY 06/29/24 Unknown History mcg-226 mg-90 mg capsule (PreserVision AREDS) zinc gluconate 50 mg tablet 50 mg PO DAILY 06/29/24 Unknown History aspirin 81 mg chewable tablet 81 mg PO DINNER #0 tabs 07/02/24 Unknown Rx atorvastatin 80 mg tablet 80 mg PO QHS #0 tabs 07/02/24 Unknown Rx lisinopril 5 mg tablet 5 mg PO DAILY #0 tabs 07/02/24 Unknown Rx bisacodyl 10 mg rectal suppository 10 mg OK QDAY PRN constipation 09/10/24 Unknown History bupropion HCl 150 mg 24 hr tablet, 150 mg PO BID 09/10/24 Unknown History extended release magnesium hydroxide 400 mg/5 mL 30 ml PO QDAY PRN stomach upset 09/10/24 Unknown History oral suspension (Milk of Magnesia) mineral oil (Fleet Mineral Oil 118 ml OK QDAY PRN constipation 09/10/24 Unknown History enema) sodium chloride 3 % nasal mist 1 spray intranasal DAILY PRN PRN 09/10/24 Unknown History (Saline Nasal Mist) congestion Allergy/AdvReac Type Severity Reaction Status Date / Time Penicillins Allergy Other Verified 09/10/24 08:32 Family History Father CVA (cerebral vascular accident) Diabetes Heart disease COPD (chronic obstructive pulmonary disease) Brother CVA (cerebral vascular accident) Grandmother CVA (cerebral vascular accident) Mother No problems noted. Surgical History Hx of tonsillectomy Social History (Updated 09/11/24 @ 03:27 by Alana Ceja) household members: none Smoking Status: Never smoker alcohol intake: never substance use type: does not use Vital Signs Vital Signs Vital Signs: 09/10/24 16:04 09/10/24 16:14 09/10/24 18:08 Temperature 99 F Temperature Source Oral Pulse Rate 109 H 84 Respiratory Rate 18 16 Respiratory Effort Normal Non-Labored Respiratory Depth Normal Respiratory Pattern Normal Blood Pressure 124/88 H 111/73 Blood Pressure Mean 100 85 Blood Pressure Source Blood Pressure Position Blood Pressure Location Pulse Ox 97 97 Oxygen Delivery Method Room Air Room Air 09/10/24 20:00 09/10/24 22:00 09/11/24 01:04 Temperature 98 F 99.5 F H Temperature Source Oral Pulse Rate 78 78 100 Respiratory Rate 16 18 Respiratory Effort Respiratory Depth Respiratory Pattern Blood Pressure 115/78 115/74 89/60 L Blood Pressure Mean 90 87 69 Blood Pressure Source Blood Pressure Position Blood Pressure Location Pulse Ox 98 97 Oxygen Delivery Method Room Air 09/11/24 01:18 09/11/24 03:43 09/11/24 04:05 Temperature 99.5 F H 100.8 F H Temperature Source Oral Pulse Rate 100 99 Respiratory Rate 25 H 17 Respiratory Effort Normal Non-Labored Respiratory Depth Normal Respiratory Pattern Normal Blood Pressure 108/78 110/79 Blood Pressure Mean 88 89 Blood Pressure Source Monitor Blood Pressure Position Semi-Fowlers Blood Pressure Location Right Arm Pulse Ox 96 96 Oxygen Delivery Method Room Air Room Air 09/11/24 07:35 09/11/24 11:05 Temperature 100.3 F H 100 F H Temperature Source Temporal Temporal Pulse Rate 95 98 Respiratory Rate 18 18 Respiratory Effort Respiratory Depth Respiratory Pattern Blood Pressure 97/61 109/69 Blood Pressure Mean 73 82 Blood Pressure Source Monitor Monitor Blood Pressure Position Semi-Fowlers Semi-Fowlers Blood Pressure Location Right Arm Right Arm Pulse Ox 97 97 Oxygen Delivery Method Room Air Room Air Weight Weight: 99.4 kg Body Mass Index (BMI) 30.5 EEG Results Procedure Details EEG Procedure Details: MASSIMO MARK is a 53 year old M with a past medical history of , who presents for evaluation of Electroencephalogram on DATE at TIME NIHSS NIHSS Nursing Documentation NIHSS Nursing Documentation: NIHSS: Ischemic Stroke/TIA Start: 09/11/24 03:04 Freq: [id number] Status: Active Protocol: Activity Type Activity Date Activity User E-sign Co-sign Detail Recorded Client Recorded Date Recorded By Document 09/11/24 07:38 DS gg 09/11/24 08:12 DS 09/11/24 07:38 NIH Stroke Scale [NIHSS] A score of 0 is normal or asymptomatic . Total possible score is 42. Inpatient: RN or Physician to activate a stroke alert for onset of new stroke symptoms or with NIHSS increase >/= 3 points. Following change in neurological status, NIHSS will be performed per physician order or more frequently PRN. -1a. Level of Consciousness Alert; keenly responsive -1b. LOC Questions Answers BOTH questions correctly. -1c. LOC Commands Performs both tasks correctly . -2. Best Gaze Normal -3. Visual No visual loss -4. Facial Palsy Normal symmetrical movements -5a. Left Arm Drift; arm drifts downward but doesn?t hit the bed -5b. Right Arm Drift; arm drifts downward but doesn?t hit the bed -6a. Left Leg Some effort against gravity ; -6b. Right Leg Some effort against gravity ; -7. Limb Ataxia Present in 1 limb -8. Sensory Normal; no sensory loss -9. Best Language No aphasia; normal -10. Dysarthria Normal -11. Extinction and Inattention No abnormality -Total 7 Query Text:A score of 0 is normal or asymptomatic. Total possible score is 42 . ED: Notify Physician for NIHSS increase by > / = 3 points. Inpatient: RN or Physician to activate a stroke alert for NIHSS increase of > / = 3 points. Physical Exam Narrative -? General: Laying comfortably in bed; in no acute distress. -? HENT: Normal oropharynx and mucosa. Normal external appearance of ears and nose. Exophthalmos. -? Neck: Supple, no pain or tenderness -? CV:? No peripheral edema. -? Pulmonary:? Normal respiratory effort. -? Ext: No cyanosis, edema, or deformity -? Skin: No rash. Normal palpation of skin.? -? Musculoskeletal: full range of motion; no joint tenderness. Normal digits and nails by inspection. No clubbing. -? NEURO: -? Mental Status: confused and somnolent, becaomes gradually more awake and then wanes to confusion again -? Language: speech is low in volume and very dysarthric.? Naming and comprehension intact -? Cranial Nerves: PERRL 2mm/brisk. EOMI, visual zamudio full, no facial asymmetry, facial sensation intact, hearing intact, tongue midline -? Motor:UE antigravity, the RUE and LUE :are antigravity but less antigravity and drifts (baseline) LE are antigravity on the RLE briefly before drift to bed, movement in plane of bed on the LLE Lab / Micro Data 09/11/24 05:54 09/11/24 05:54 Labs: Laboratory Results - last 24 hr 09/10/24 16:55: WBC 5.8, RBC 4.84, Hgb 14.8, Hct 43.4, MCV 89.7, MCH 30.6, MCHC 34.1, RDW Std Deviation 40.2, RDW Coeff of Yevgeniy 12.4, Plt Count 183, MPV 10.0, Immature Gran % (Auto) 0.300, Neut % (Auto) 73.3 H, Lymph % (Auto) 10.4 L, Ingham % (Auto) 14.7 H, Eos % (Auto) 1.0, Baso % (Auto) 0.3, Absolute Neuts (auto) 4.2, Absolute Lymphs (auto) 0.60 L, Nucleated RBC % 0, Sodium 139, Potassium 4.0, Chloride 106, Carbon Dioxide 28.0, Anion Gap 5, BUN 16, Creatinine 1.10, Estim Creat Clear Calc 91.48, Est GFR (MDRD) Af Amer 89, Est GFR (MDRD) Non-Af 74, BUN/Creatinine Ratio 14.5, Glucose 88, Calcium 9.3 09/11/24 05:54: WBC 5.2, RBC 4.51 L, Hgb 13.6, Hct 40.8, MCV 90.5, MCH 30.2, MCHC 33.3, RDW Std Deviation 41.5, RDW Coeff of Yevgeniy 12.7, Plt Count 160, MPV 10.5, Immature Gran % (Auto) 0.200, Neut % (Auto) 66.6, Lymph % (Auto) 17.2 L, Ingham % (Auto) 15.6 H, Eos % (Auto) 0.2, Baso % (Auto) 0.2, Absolute Neuts (auto) 3.5, Absolute Lymphs (auto) 0.90, Nucleated RBC % 0, Sodium 140, Potassium 3.7, Chloride 108 H, Carbon Dioxide 23.0, Anion Gap 9, BUN 17, Creatinine 1.08, Estim Creat Clear Calc 92.85, Est GFR (MDRD) Af Amer 91, Est GFR (MDRD) Non-Af 75, BUN/Creatinine Ratio 15.7, Glucose 104, Calcium 8.7, Phosphorus 4.0, Magnesium 2.0, Total Bilirubin 0.60, AST 29, ALT 64 H, Alkaline Phosphatase 97, Total Protein 7.0, Albumin 3.3, Globulin 3.7, Albumin/Globulin Ratio 0.9, Triglycerides 62, Cholesterol 98, LDL Cholesterol 49, VLDL Cholesterol 12, HDL Cholesterol 37 L, Vitamin B12 508, Folate 18.10, TSH 0.795 Imaging Radiology Impression Brain CT 09/10/24 16:38 IMPRESSION: 1. No intracranial hemorrhage or other acute process is seen. 2. Very prominent bilateral cerebral and pontine white matter hypodensities are noted, most consistent with chronic ischemic changes of small-vessel disease. 3. Chronic appearing paranasal sinus disease, relatively mild. One or more dose reduction techniques were used (e.g., Automated exposure control, adjustment of the mA and/or kV according to patient size, use of iterative reconstruction technique). Reading Location: [address] Shoulder X-Ray 09/10/24 17:17 IMPRESSION: Right shoulder: At least mild right acromioclavicular joint degenerative changes are seen, with partial joint narrowing noted. The right glenohumeral joint demonstrates only minimal degenerative changes. No joint narrowing is seen. No acute fracture or dislocation is evident. If clinical concern persists, short-term follow-up imaging may be obtained to rule out a currently occult fracture. Left shoulder: Mild left acromioclavicular joint degenerative changes are seen, without significant joint narrowing identified. The left glenohumeral joint demonstrates no significant abnormality. No fracture or dislocation is evident. If clinical concern persists, short-term follow-up imaging may be obtained to rule out a currently occult fracture. Reading Location: [address] Shoulder X-Ray 09/10/24 17:17 IMPRESSION: Right shoulder: At least mild right acromioclavicular joint degenerative changes are seen, with partial joint narrowing noted. The right glenohumeral joint demonstrates only minimal degenerative changes. No joint narrowing is seen. No acute fracture or dislocation is evident. If clinical concern persists, short-term follow-up imaging may be obtained to rule out a currently occult fracture. Left shoulder: Mild left acromioclavicular joint degenerative changes are seen, without significant joint narrowing identified. The left glenohumeral joint demonstrates no significant abnormality. No fracture or dislocation is evident. If clinical concern persists, short-term follow-up imaging may be obtained to rule out a currently occult fracture. Reading Location: [address] Chest X-Ray 09/11/24 00:45 IMPRESSION: No acute cardiopulmonary process identified. Chronic changes, as above Reading [facility] Active Medications Active Medications Active Medications: Current Medications Generic Name Dose Route Start Last Admin Trade Name Freq PRN Reason Stop Dose Admin Acetaminophen 650 mg 09/11/24 02:20 Acetaminophen 325 Mg Tablet PO Q6H PRN PRN Pain 1-10 or Fever Al Hydroxide/Mg Hydroxide 30 ml 09/11/24 02:20 Mag Hydrox/Al Hydrox/Simeth 30 Ml Udc PO Q6H PRN PRN Gastric Burning Heparin Sodium (Porcine) 5,000 unit 09/11/24 10:00 Heparin Injection (Vial) 5,000 Unit/Ml Vial SC Q12 TRISTAN Levetiracetam 1,000 mg in 100 mls @ 400 mls/hr 09/11/24 02:20 09/11/24 11:03 IV 400 mls/hr Q12 TRISTAN Administration Doxycycline Hyclate 100 mg/ 260 mls @ 250 mls/hr 09/11/24 10:00 Sodium Chloride IV Q12 TRISTAN Sodium Chloride 1,000 mls @ 70 mls/hr 09/11/24 02:20 09/11/24 03:55 IV 09/11/24 16:37 70 mls/hr .[id number] TRISTAN Administration Protocol Sodium Chloride 100 mls @ 15 mls/hr 09/11/24 03:29 IV .Q6H40M PRN Saline Flush Sodium Chloride 100 mls @ 15 mls/hr 09/11/24 03:29 IV .Q6H40M PRN Additional IVPB Infusion Lorazepam 2 mg 09/11/24 02:14 Lorazepam 2 Mg/Ml Syringe IV Q4H PRN PRN SEIZURES Magnesium Hydroxide 30 ml 09/11/24 02:20 Magnesium Hydroxide 30 Ml Udc PO DAILY PRN PRN Constipation Melatonin 3 mg 09/11/24 02:20 Melatonin 3 Mg Tablet PO QHS PRN PRN INSOMNIA Ondansetron HCl 4 mg 09/11/24 02:20 Ondansetron 4 Mg/2 Ml Vial IV Q8H PRN PRN NAUSEA/VOMITING Sodium Chloride 10 - 40 ml 09/11/24 03:29 0.9% Saline Lock 10 Ml Syringe IV UD PRN SALINE FLUSH
[2024-09-11] MEDS: Heparin Injection (Vial) 5,000 UNIT/ML VIAL 5000 UNIT SC ×2 (11:11→21:51)
[2024-09-11] MEDS: Doxycycline 100 MG in 0.9% Normal Saline (250mL Bag) 250 ML 250 MG IV (11:12)
[2024-09-11] MEDS: levETIRAcetam IV 2,000 MG in 0.9% Normal Saline (250mL Bag) 230 ML 1000 MG IV (13:34)
--- NOTE | 2024-09-11 14:03 | CASEMGMT ---
KENDELL sent updates to [place] and notified them that patient is being transferred to [facility]. Karyna JUAREZ
[2024-09-11] MEDS: MethylPREDNISolone 125 MG/2 ML Vial 60 MG IV (14:13)
[2024-09-11] MEDS: LORazepam 2 MG/ML Syringe 0.5 MG IV (14:13)
[2024-09-11] MEDS: Famotidine 200 MG/20 ML MDV 20 MG in 0.9% Normal Saline (Pres. free 8 ML 300 MG IV ×2 (14:19→22:19)
--- NOTE | 2024-09-11 15:52 | CHAPLAIN ---
Type of Pastoral Visit ___ Initial Visit ___ Follow-up Visit ___ On-call Visit _x__ General Patient Visit ___ Spiritual Assessment ___ Family Conference ___ Bereavement ___ Rapid Response ___ Code Blue ___ Other (describe below) Pastoral Care Referral From _x__ Patient _x__ Family ___ Nurse ___ Physician ___ Nuclear Cardiology Technologist ___ Television Reporter ___ Other (describe below) Sacrament/Intervention _x__ Active listening ___ Anointing ___ Mu-Ism ___ Bereavement ___ Communion ___ Irene exploration ___ ___ Life review _x__ Prayer ___ Reconciliation ___ Sacrament of Sick _x__ Supportive presence ___ Wedding ___ Other (describe below) Pastoral Comments patient is having an MRI at this time and the plan will be to transfer patient to another facility; and sister are in the room waiting until MRI is done; offer of support and presence; both welcome opportunity to talk and to have a prayer spoken; sister speaks of their father dying of the same condition and how this brings back difficult memories; sister speaks of having irene in God and that it will be the reason they can face the inevitable; prayer is welcomed
--- NOTE | 2024-09-11 16:57 | PCM.PN.HOSP ---
Reason for Visit Reason for Visit: Diagnoses Cerebral autosomal dominant arteriopathy with subcortical infarcts and leukoencephalopathy (09/11/24) Chronic sinusitis, unspecified (09/11/24) Unspecified convulsions (09/11/24) Contusion of right shoulder, initial encounter (09/11/24) Unspecified fall, initial encounter (09/11/24) Personal history of transient ischemic attack (TIA), and cerebral infarction without residual deficits (09/11/24) Objective Data Objective Data Vital Signs: Vital Signs Temp Pulse Resp BP Pulse Ox O2 Del Method 100.5 F H 62 18 152/85 H 94 Room Air 09/11/24 15:48 09/11/24 15:48 09/11/24 15:48 09/11/24 15:48 09/11/24 15:48 09/11/24 15:48 Oxygen Delivery Method Room Air Weight: 219 lb 2.232 oz Body Mass Index (BMI) 30.5 Intake & Output: Intake and Output for Last 24 Hours 09/09/24 09/10/24 09/11/24 23:59 23:59 23:59 Intake Total 1437.5 / 1437.5 Output Total 150 / 150 Balance 1287.5 / 1287.5 Lab / Micro Data 09/11/24 05:54 09/11/24 05:54 Labs: Laboratory Results - last 24 hr 09/10/24 16:55: WBC 5.8, RBC 4.84, Hgb 14.8, Hct 43.4, MCV 89.7, MCH 30.6, MCHC 34.1, RDW Std Deviation 40.2, RDW Coeff of Yevgeniy 12.4, Plt Count 183, MPV 10.0, Immature Gran % (Auto) 0.300, Neut % (Auto) 73.3 H, Lymph % (Auto) 10.4 L, Emery % (Auto) 14.7 H, Eos % (Auto) 1.0, Baso % (Auto) 0.3, Absolute Neuts (auto) 4.2, Absolute Lymphs (auto) 0.60 L, Nucleated RBC % 0, Sodium 139, Potassium 4.0, Chloride 106, Carbon Dioxide 28.0, Anion Gap 5, BUN 16, Creatinine 1.10, Estim Creat Clear Calc 91.48, Est GFR (MDRD) Af Amer 89, Est GFR (MDRD) Non-Af 74, BUN/Creatinine Ratio 14.5, Glucose 88, Calcium 9.3 09/11/24 05:54: WBC 5.2, RBC 4.51 L, Hgb 13.6, Hct 40.8, MCV 90.5, MCH 30.2, MCHC 33.3, RDW Std Deviation 41.5, RDW Coeff of Yevgeniy 12.7, Plt Count 160, MPV 10.5, Immature Gran % (Auto) 0.200, Neut % (Auto) 66.6, Lymph % (Auto) 17.2 L, Emery % (Auto) 15.6 H, Eos % (Auto) 0.2, Baso % (Auto) 0.2, Absolute Neuts (auto) 3.5, Absolute Lymphs (auto) 0.90, Nucleated RBC % 0, Sodium 140, Potassium 3.7, Chloride 108 H, Carbon Dioxide 23.0, Anion Gap 9, BUN 17, Creatinine 1.08, Estim Creat Clear Calc 92.85, Est GFR (MDRD) Af Amer 91, Est GFR (MDRD) Non-Af 75, BUN/Creatinine Ratio 15.7, Glucose 104, Calcium 8.7, Phosphorus 4.0, Magnesium 2.0, Total Bilirubin 0.60, AST 29, ALT 64 H, Alkaline Phosphatase 97, Total Protein 7.0, Albumin 3.3, Globulin 3.7, Albumin/Globulin Ratio 0.9, Triglycerides 62, Cholesterol 98, LDL Cholesterol 49, VLDL Cholesterol 12, HDL Cholesterol 37 L, Vitamin B12 508, Folate 18.10, TSH 0.795 Radiography Diagnostic Testing: Radiology Impression Brain CT 09/10/24 16:38 IMPRESSION: 1. No intracranial hemorrhage or other acute process is seen. 2. Very prominent bilateral cerebral and pontine white matter hypodensities are noted, most consistent with chronic ischemic changes of small-vessel disease. 3. Chronic appearing paranasal sinus disease, relatively mild. One or more dose reduction techniques were used (e.g., Automated exposure control, adjustment of the mA and/or kV according to patient size, use of iterative reconstruction technique). Reading Location: [id number] Shoulder X-Ray 09/10/24 17:17 IMPRESSION: Right shoulder: At least mild right acromioclavicular joint degenerative changes are seen, with partial joint narrowing noted. The right glenohumeral joint demonstrates only minimal degenerative changes. No joint narrowing is seen. No acute fracture or dislocation is evident. If clinical concern persists, short-term follow-up imaging may be obtained to rule out a currently occult fracture. Left shoulder: Mild left acromioclavicular joint degenerative changes are seen, without significant joint narrowing identified. The left glenohumeral joint demonstrates no significant abnormality. No fracture or dislocation is evident. If clinical concern persists, short-term follow-up imaging may be obtained to rule out a currently occult fracture. Reading Location: [address] Shoulder X-Ray 09/10/24 17:17 IMPRESSION: Right shoulder: At least mild right acromioclavicular joint degenerative changes are seen, with partial joint narrowing noted. The right glenohumeral joint demonstrates only minimal degenerative changes. No joint narrowing is seen. No acute fracture or dislocation is evident. If clinical concern persists, short-term follow-up imaging may be obtained to rule out a currently occult fracture. Left shoulder: Mild left acromioclavicular joint degenerative changes are seen, without significant joint narrowing identified. The left glenohumeral joint demonstrates no significant abnormality. No fracture or dislocation is evident. If clinical concern persists, short-term follow-up imaging may be obtained to rule out a currently occult fracture. Reading Location: [address] Chest X-Ray 09/11/24 00:45 IMPRESSION: No acute cardiopulmonary process identified. Chronic changes, as above Reading Location: [facility] Brain MRI 09/11/24 02:14 IMPRESSION: Small bilateral centrum semiovale foci of restricted diffusion compatible with acute infarctions. Parenchymal atrophy, severe chronic microvascular ischemia, and infarctions in combination are not specific for, but can be seen with CADASIL especially given the degree of these findings in a patient of this age. Critical results were communicated to the navigator to be communicated to the ordering provider. No number was available for the radiologist directly called the ordering provider. Reading Location: [facility] Physical Exam Narrative Seen and examined. Patient mostly lethargic and obtunded. Cannot provide history himself. Nonverbal. Discussed with patient's , son and patient's sister near the bedside. Admitted with a seizure in the ED. History of a stroke in the past. Physical exam General: Obtunded, semiresponsive. Opens eyes. Lethargic HEENT: Atraumatic, PERRLA, EOMI, Normocephalic Oral: No Gingival or Mucosal Lesions/ Ulcerations Neck: Supple, No JVD, Negative Carotid Bruits Chest wall/Lungs: Air entry diminished in bilateral lung bases. No crepitation/rhonchi Cardiovascular: Regular rate, Regular Rhythm, Normal S1, Normal S2, No M/G/R Abdomen: Bowel Sounds Present, Soft, Non Tender, Non-Distended : No dysuria. No renal angle tenderness. No suprapubic tenderness. Extremities: No edema, Capillary Refill Less than 3 Seconds Skin: No rashes, No breakdown Musculoskeletal: No Tenderness to Palpation of Joints or Extremities Neurological: Seizure in the ED. Confused probably postictal. Psych/Mental Status: Flat affect Assessment & Plan Assessment/Plan (1) Seizure: (2) Fall: QUALIFIERS: Encounter type: initial encounter Qualified Code(s): W19.XXXA - Unspecified fall, initial encounter (3) CADASIL: (4) History of multiple strokes: (5) Contusion of right shoulder region: QUALIFIERS: Encounter type: initial encounter Qualified Code(s): S40.011A - Contusion of right shoulder, initial encounter (6) Sinusitis: QUALIFIERS: Sinusitis location: unspecified location Chronicity: chronic Qualified Code(s): J32.9 - Chronic sinusitis, unspecified PLAN: Plan 53-year-old gentleman was admitted with pain in both shoulders after 3 falls from the [facility]. Denies loss of consciousness or hitting head. Patient has chronic weakness with multiple strokes in the past. Has family in autosomal dominant CADASIL causing frequent strokes. 1. Apparently new-onset Seizure disorder with witnessed tonic-clonic seizure followed by postictal period of confusion that has since resolved: Patient was admitted in PCU. As per , he had noticed some involuntary movements about 5 years ago but was never diagnosed by physician to be seizure. In ED patient was loaded with Keppra 1 g IV twice daily. Patient was evaluated by teleneurologist. EEG was concerning for subclinical seizures with increased confusion and somnolence and postictal state therefore loaded with additional 2 g and then 1 g twice daily. Urine culture shows less than 1000 colonies GNR lactose barrel cleaner but patient has a low-grade temperature, Tmax 100.8 Fahrenheit. Blood culture ordered. It may be inflammatory from limited to stroke. Monitor temperature if it is more than 102 Fahrenheit will need empiric antibiotic Acute infarct with history of recurrent infarct: MRI brain was done which shows a small bilateral centrum semiovale foci of restricted diffusion compatible with acute infarctions. Patient had previous strokes. CT also showed severe chronic microvascular ischemia and infarctions. Neurologist recommended transfer to [facility] and I called the transfer line with percent accepted there. In the afternoon patient's family including his , sister and son were thinking about DNR CC/hospice care. I talked to them but not able to give prognosis as I just saw her first time. I recommend 24-hour EEG monitoring in [facility] for 2 to 3 days before making decision but if the family decides hospice consult, will do needful. also said patient is DNR CC a without intubation 2. Recent Fall with subsequent Bilateral Shoulder Pain due to contusions with soft tissue injury without evidence of acute fracture or dislocation on X-rays suspected to be due to #1 in the setting of chronic ambulatory dysfunction with muscle spasticity causing patient to ambulate with walker at baseline - PT/OT and Case Management to consult and treat on-rounds in AM for further recommendations with help appreciated in advance. 3. 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 is?a rare genetic disease that affects the brain's blood vessels) causing multiple TIA's/CVA's beginning at age 44; with most recent admission here from June 30, 2024 to July 02, 2024 for Acute CVA evident on MRI that revealed a small focus of ischemic change in the Left parietal white matter along with extensive chronic microvascular changes on daily BASA (as CADASIL patients are considered poor candidates for TNK and dual-antiplatelet therapy) with patient currently residing at [facility] due to dementia with cognitive impairment, memory deficit and diffuse spasticity precipitating #1 & #2 - Continue conservative medical management. 4. CT evidence of chronic appearing nasal sinus disease on CT with low-grade fever of 99 degrees Fahrenheit noted on admission complicating #1 - #3 - Start empiric IV doxycycline given patient's listed allergy to PCN (?) and monitor for improvement. 5. Obesity; with BMI of 32.8 this admission compounding #1 - #4 - Weight loss will be recommended. Check TSH. This complicates his case and may hamper recovery. 6. Essential Hypertension; on lisinopril - Hold lisinopril until acute CVA is ruled out on MRI to allow for 'permissive hypertension'. 7. Hyperlipidemia; on atorvastatin - Resume statin and check Lipid Profile. 8. History of hypothyroidism; with patient not on treatment at this time - Check TSH to confirm status. 9. Depression with anxiety; on bupropion - Maintain current regimen. 10. OA - Give acetaminophen prn. 11. DVT prophylaxis - Heparin 5,000U sq BID plus SCD's. Total time: Approximately (but not less than) 75 minutes. Charges/Coding Addendum Addendum: Total time of the visit including total time spent in counseling or coordination of care, (more than 50% of the total time, spent in obtaining medical information from nurses and other ancillary care providers ,explaining to the patient about labs, imaging, diagnosis and management of active complex medical conditions), discussion with the neurologist, management of seizure, addressing CODE STATUS: Review of labs and imaging is 35 minutes. Visit Charges Inpatient E&M: 86682 Subs Hosp L3
[2024-09-11] MEDS: Acetaminophen 650 MG Suppository RC (17:04)
[2024-09-12 02:00] VITALS: BP 119/75; PULSE 79; RESP 15; TEMP 36.8; O2SAT 98
[2024-09-12 04:16] VITALS: BMI 30.5
[2024-09-12 05:00] VITALS: BMI 30.5
[2024-09-12 06:00] VITALS: BP 119/70; PULSE 77; RESP 15; TEMP 36.8; O2SAT 99
[2024-09-12 07:20] VITALS: O2SAT 96
--- NOTE | 2024-09-12 08:04 | PN.NEURO_ITS ---
Assessment and Plan: Neuro Assessment/Plan HALEY MARK is a 53 M with a past medical history of CADASIL, one standalone seizure, being evaluated by Teleneurology for recent increase in confusion, falls, and now seizures in the ED. He has had several more clinical seizure and will be loaded with KEppra. In addition his EEG is concerning for subclinical events and given his increased confusion, somnolence, and falls over the past several days, concern is for subclinical seizures, and status. Symptoms greatly improved. MRI Brain with b/l stroke - likely the cause of the subacute deterioration and falls prior to coming to the hospital. Stroke, secondary to genetic causes CADASIL, TOAST criteria Other: New small infarcts consistent with what is seen with small vessel disease ischemia with CADASIL. There is no specific treatment for CADASIL related vasculopathy. The main focus of management is to minimize the impact of conventional risk factors on vasculopathy. As such, would recommend targeting a lower BP goal (< 130/85) and initiating BP medication. - Given bilateral strokes, not unreasonable to obtain TTE in this setting, h owever they are still likely the result of small vessel disease - No additional stroke work up required - PT/OT. TABLE ATTENDANT - Continue asa 81 - Continue high intensity statin - Would initiate oral anti-hypertensive working towards goal of BP < 130/85. Low dose diuretics, calcium channel blockers or DARYL/ARB would all be reasonable first line options. It seems he has been somewhat resistant to medications in the past, but he seems to be amenable to starting a BP med now. Epilepsy, patient currently meets criteria for the diagnosis of epilepsy. - repeat EEG today - continue to treat UTI - continue Keppra 1000mg BID I personally attended this patient and spent a total time of 45minutes evaluating this patient including clinical assessment, review of chart, medical history imaging, and determining appropriate treatment and workup. Subject: Neurology Subjective Family states pt significantly better, had one additional event of staring. No head turning or tonic posturing as last time NIHSS NIHSS Nursing Documentation NIHSS Nursing Documentation: NIHSS: Ischemic Stroke/TIA Start: 09/11/24 03:04 Freq: [id number] Status: Active Protocol: Activity Type Activity Date Activity User E-sign Co-sign Detail Recorded Client Recorded Date Recorded By Document 09/12/24 07:20 DS [id number] 09/12/24 07:46 DS 09/12/24 07:20 NIH Stroke Scale [NIHSS] A score of 0 is normal or asymptomatic . Total possible score is 42. Inpatient: RN or Physician to activate a stroke alert for onset of new stroke symptoms or with NIHSS increase >/= 3 points. Following change in neurological status, NIHSS will be performed per physician order or more frequently PRN. -1a. Level of Consciousness Alert; keenly s responsive -1b. LOC Questions Answers BOTH questions correctly. -1c. LOC Commands Performs both tasks correctly . -2. Best Gaze Normal -3. Visual No visual loss -4. Facial Palsy Normal symmetrical movements -5a. Left Arm No drift; arm holds 90 (or 45 ) degrees for full 10 seconds -5b. Right Arm No drift; arm holds 90 (or 45 ) degrees for full 10 seconds -6a. Left Leg No effort against gravity ; leg falls to bed immediately -6b. Right Leg Some effort against gravity ; -7. Limb Ataxia Absent -8. Sensory Normal; no sensory loss -9. Best Language No aphasia; normal -10. Dysarthria Normal -Total 5 Query Text:A score of 0 is normal or asymptomatic. Total possible score is 42 . ED: Notify Physician for NIHSS increase by > / = 3 points. Inpatient: RN or Physician to activate a stroke alert for NIHSS increase of > / = 3 points. Coma Scale [Assess] -Eye Opening Spontaneous -Motor Obeys Commands -Verbal Oriented [Total] -Coma Scale Total 15 Objective Data Objective Data Vital Signs: Vital Signs Temp Pulse Resp BP Pulse Ox O2 Del Method O2 Flow Rate 98.2 F 77 15 119/70 96 Room Air 2 09/12/24 06:00 09/12/24 06:00 09/12/24 06:00 09/12/24 06:00 09/12/24 07:20 09/12/24 07:20 09/12/24 06:00 Oxygen Flow Rate (L/min) 2 Oxygen Delivery Method Room Air Weight: 99.4 kg Body Mass Index (BMI) 30.5 Intake & Output: Intake and Output for Last 24 Hours 09/10/24 09/11/24 09/12/24 23:59 23:59 23:59 Intake Total 1830.0 / 1830.0 0 / 0 Output Total 950 / 1750 1200 / 1200 Balance 880.0 / 80.0 -1200 / -1200 Lab / Micro Data 09/11/24 05:54 09/11/24 05:54 Labs: Laboratory Results - last 24 hr 09/11/24 05:54: Sodium 140, Potassium 3.7, Chloride 108 H, Carbon Dioxide 23.0, Anion Gap 9, BUN 17, Creatinine 1.08, Estim Creat Clear Calc 92.85, Est GFR (MDRD) Af Amer 91, Est GFR (MDRD) Non-Af 75, BUN/Creatinine Ratio 15.7, Glucose 104, Calcium 8.7, Phosphorus 4.0, Magnesium 2.0, Total Bilirubin 0.60, AST 29, A LT 64 H, Alkaline Phosphatase 97, Total Protein 7.0, Albumin 3.3, Globulin 3.7, Albumin/Globulin Ratio 0.9, Triglycerides 62, Cholesterol 98, LDL Cholesterol 49, VLDL Cholesterol 12, HDL Cholesterol 37 L, Vitamin B12 508, Folate 18.10, TSH 0.795 Radiography Diagnostic Testing: Radiology Impression Brain MRI 09/11/24 02:14 IMPRESSION: Small bilateral centrum semiovale foci of restricted diffusion compatible with acute infarctions. Parenchymal atrophy, severe chronic microvascular ischemia, and infarctions in combination are not specific for, but can be seen with CADASIL especially given the degree of these findings in a patient of this age. Critical results were communicated to the navigator to be communicated to the ordering provider. No number was available for the radiologist directly called the ordering provider. Reading Location: [facility] Physical Exam Narrative ? NEURO: -? Mental Status: awake, alert to situation, time and place -? Language: naming and comprehension intact, dysarthric -? Cranial Nerves: PERRL 2mm/brisk. EOMI, visual zamudio full, no facial asymmetry, facial sensation intact, hearing intact, tongue midline -? Motor:UE antigravity, the RUE and LUE :are antigravity but less antigravity and drifts (baseline) LE are antigravity on the RLE briefly before drift to bed, movement in plane of bed on the LLE
[2024-09-12] MEDS: Famotidine 200 MG/20 ML MDV 20 MG in 0.9% Normal Saline (Pres. free 8 ML 300 MG IV (10:16)
[2024-09-12] MEDS: levETIRAcetam IV 1,000 MG/100 ML BAG 400 MG IV (10:16)
[2024-09-12] MEDS: Lactobacillis Acidophilus 1 CAP PO ×3 (10:17→17:48)
[2024-09-12] MEDS: Heparin Injection (Vial) 5,000 UNIT/ML VIAL 5000 UNIT SC (10:17)
[2024-09-12 11:15] VITALS: BP 114/89; PULSE 80; RESP 17; TEMP 36.6; O2SAT 97
[2024-09-12] MEDS: Acetaminophen 325 MG Tablet 650 MG PO (14:27)
--- NOTE | 2024-09-12 14:51 | PCM.DC.SUM ---
Providers Date of Admission: 09/11/24 Date of Discharge: 09/12/24 Primary Care Physician: SYD Castrejon Consultations 09/11/24 08:19 Consult: Tele-Neurology Routine Consulting Provider: [facility] Reason for Consult: seizure activity/pseudoseizure EMERGENT Consult: No MD Notified: Yes Date Notified: 09/11/24 Time Notified: 08:19 Method of Notification: Text Nursing Unit Staff Notify [facility] of Tele-Neurology Consult: Yes Reason For Visit: NEW-ONSET SEIZURE Diagnosis Discharge Diagnosis (1) Seizure: Status: Acute Code(s): R56.9 - Unspecified convulsions (2) Fall: Status: Acute Code(s): W19.XXXA - Unspecified fall, initial encounter Qualifiers: Encounter type: initial encounter Qualified Code(s): W19.XXXA - Unspecified fall, initial encounter (3) CADASIL: Status: Chronic Code(s): 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 (4) History of multiple strokes: Status: Acute Code(s): Z86.73 - Personal history of transient ischemic attack (TIA), and cerebral infarction without residual deficits (5) Contusion of right shoulder region: Status: Acute Code(s): S40.011A - Contusion of right shoulder, initial encounter Qualifiers: Encounter type: initial encounter Qualified Code(s): S40.011A - Contusion of right shoulder, initial encounter (6) Sinusitis: Status: Acute Code(s): J32.9 - Chronic sinusitis, unspecified Qualifiers: Sinusitis location: unspecified location Chronicity: chronic Qualified Code(s): J32.9 - Chronic sinusitis, unspecified Plan 53-year-old gentleman was admitted with pain in both shoulders after 3 falls from the [facility]. Denies loss of consciousness or hitting head. Patient has chronic weakness with multiple strokes in the past. Has family in autosomal dominant CADASIL causing frequent strokes. 1. Apparently new-onset Seizure disorder with witnessed tonic-clonic seizure followed by postictal period of confusion that has since resolved: Patient was admitted in PCU. As per , he had noticed some involuntary movements about 5 years ago but was never diagnosed by physician to be seizure. In ED patient was loaded with Keppra 1 g IV twice daily. Patient was evaluated by teleneurologist. EEG was concerning for subclinical seizures with increased confusion and somnolence and postictal state therefore loaded with additional 2 g and then 1 g twice daily. 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 Blood culture ordered. It may be inflammatory from limited to stroke. Monitor temperature if it is more than 102 Fahrenheit will need empiric antibiotic 09/12: Repeat EEG was done which was reported as mild encephalopathy with no epileptiform discharges or seizures during the period of recording. Family wanted to to be evaluated by tertiary care neurology/epileptologist for prognostication and decide about goal of life/advance care planning. Patient is discharged. Acute infarct with history of recurrent infarct secondary to genetic causes, CADASIL: MRI brain was done which shows a small bilateral centrum semiovale foci of restricted diffusion compatible with acute infarctions. Patient had previous strokes. CT also showed severe chronic microvascular ischemia and infarctions. Neurologist recommended transfer to [facility] and I called the transfer line with percent accepted there. In the afternoon patient's family including his , sister and son were thinking about DNR CC/hospice care. I talked to them but not able to give prognosis as I just saw her first time. I recommend 24-hour EEG monitoring in [facility] for 2 to 3 days before making decision but if the family decides hospice consult, will do needful. also said patient is DNR CC a without intubation 09/12: Continue baby aspirin and high intensity statin. Initiate antihypertensive medication towards goal of less than 130/85. 2. Recent Fall with subsequent Bilateral Shoulder Pain due to contusions with soft tissue injury without evidence of acute fracture or dislocation on X-rays suspected to be due to #1 in the setting of chronic ambulatory dysfunction with muscle spasticity causing patient to ambulate with walker at baseline - PT/OT and Case Management to consult and treat on-rounds in AM for further recommendations with help appreciated in advance. 3. 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 is?a rare genetic disease that affects the brain's blood vessels) causing multiple TIA's/CVA's beginning at age 44; with most recent admission here from June 30, 2024 to July 02, 2024 for Acute CVA evident on MRI that revealed a small focus of ischemic change in the Left parietal white matter along with extensive chronic microvascular changes on daily BASA (as CADASIL patients are considered poor candidates for TNK and dual-antiplatelet therapy) with patient currently residing at [facility] due to dementia with cognitive impairment, memory deficit and diffuse spasticity precipitating #1 & #2 - Continue conservative medical management. 4. CT evidence of chronic appearing nasal sinus disease on CT with low-grade fever of 99 degrees Fahrenheit noted on admission complicating #1 - #3 - Start empiric IV doxycycline given patient's listed allergy to PCN (?) and monitor for improvement. 5. Obesity; with BMI of 32.8 this admission compounding #1 - #4 - Weight loss will be recommended. Check TSH. This complicates his case and may hamper recovery. 6. Essential Hypertension; on lisinopril - Hold lisinopril until acute CVA is ruled out on MRI to allow for 'permissive hypertension'. 7. Hyperlipidemia; on atorvastatin - Resume statin and check Lipid Profile. 8. History of hypothyroidism; with patient not on treatment at this time - Check TSH to confirm status. 9. Depression with anxiety; on bupropion - Maintain current regimen. 10. OA - Give acetaminophen prn. 11. DVT prophylaxis - Heparin 5,000U sq BID plus SCD's. Patient is being transferred to [facility]. Medications at Discharge Home Medications ascorbic acid (vitamin C) 1,000 mg tablet (C-1000) 1 g PO DAILY supplement 06/29/24 ashwagandha root extract 500 mg capsule 500 mg PO DAILY suppliment 06/29/24 betaine HCl 300 mg tablet 300 mg PO DAILY suplement 06/29/24 citrulline 1 cap PO DAILY supplement 06/29/24 cod liver oil 1 cap PO DAILY cholesterol 06/29/24 copper 3 mg tablet 3 mg PO DAILY supplement 06/29/24 omega 3-oli-rdf-fish oil 1,200 mg (144 mg-216 mg) capsule (Fish Oil) 1 cap PO DAILY cholesterol 06/29/24 passion flower 250 mg capsule 250 mg PO DAILY PRN anxiety 06/29/24 s-adenosylmethionine 400 mg tablet (KRIS-e) 400 mg PO BID depression 06/29/24 vitamin B complex (Complex B-100 tablet,extended release) 1 tab PO DAILY 06/29/24 vitamins A,C,X-rkbw-wozspe 4,296 mcg-226 mg-90 mg capsule (PreserVision AREDS) 1 cap PO DAILY 06/29/24 zinc gluconate 50 mg tablet 50 mg PO DAILY 06/29/24 aspirin 81 mg chewable tablet 81 mg PO DINNER #0 tabs 07/02/24 atorvastatin 80 mg tablet 80 mg PO QHS #0 tabs 07/02/24 lisinopril 5 mg tablet 5 mg PO DAILY #0 tabs 07/02/24 bisacodyl 10 mg rectal suppository 10 mg VA QDAY PRN constipation 09/10/24 bupropion HCl 150 mg 24 hr tablet, extended release 150 mg PO BID 09/10/24 magnesium hydroxide 400 mg/5 mL oral suspension (Milk of Magnesia) 30 ml PO QDAY PRN stomach upset 09/10/24 mineral oil (Fleet Mineral Oil enema) 118 ml VA QDAY PRN constipation 09/10/24 sodium chloride 3 % nasal mist (Saline Nasal Mist) 1 spray intranasal DAILY PRN PRN congestion 09/10/24 Physical Exam Narrative Seen and examined. Patient is awake alert and can talk. Admitted with a seizure in the ED. History of a stroke in the past. Physical exam General: Alert, alert and oriented x 3 HEENT: Atraumatic, PERRLA, EOMI, Normocephalic Oral: No Gingival or Mucosal Lesions/ Ulcerations Neck: Supple, No JVD, Negative Carotid Bruits Chest wall/Lungs: Air entry diminished in bilateral lung bases. No crepitation/rhonchi Cardiovascular: Regular rate, Regular Rhythm, Normal S1, Normal S2, No M/G/R Abdomen: Bowel Sounds Present, Soft, Non Tender, Non-Distended : No dysuria. No renal angle tenderness. No suprapubic tenderness. Extremities: No edema, Capillary Refill Less than 3 Seconds Skin: No rashes, No breakdown Musculoskeletal: No Tenderness to Palpation of Joints or Extremities. Mild weakness 4/5 at knees and hip joints Neurological: Seizure in the ED. Psych/Mental Status: Flat affect Weight / BMI Weight Weight: 219 lb 2.232 oz Body Mass Index (BMI) 30.5 ABG / Lab / Microbiology Data 09/11/24 05:54 09/11/24 05:54 Radiography Diagnostic Testing: Radiology Impression Brain MRI 09/11/24 02:14 IMPRESSION: Small bilateral centrum semiovale foci of restricted diffusion compatible with acute infarctions. Parenchymal atrophy, severe chronic microvascular ischemia, and infarctions in combination are not specific for, but can be seen with CADASIL especially given the degree of these findings in a patient of this age. Critical results were communicated to the navigator to be communicated to the ordering provider. No number was available for the radiologist directly called the ordering provider. Reading Location: [facility] D/C Instructions DC O2, CPAP, BIPAP Needs Home O2 Discharge instructions: No Meaningful Use Info Meaningful Use Meaningful Use Diagnoses (Choose all that apply): Ischemic CVA CVA Therapy Assessed for PT,OT and/or ST?: Yes Ischemic Stroke Antithrombotic order at d/c?: Yes Dx of Atrial fib/flutter?: No Anticoagulant at discharge?: Yes Statin Dosing Therapy Reference: STATIN DOSE THERAPY REFERENCE: * Patients > 75 years receive moderate or high dose statin therapy. * Patients 75 years or YOUNGER should receive HIGH intensity statin dose unless contraindicated. You will be required to document reason for non-treatment if statin daily dose does not meet guidelines. HIGH DOSE STATIN THERAPY DAILY Atorvastatin > than or = to 40 mg Rosuvastatin > than or = to 20 mg Amlodipine + Atorvastatin > than or = to 2.5/40 mg Ezetimibe + Simvastatin 10/80 mg Simvastatin 80mg Statins at discharge?: Yes If patient is 75 or younger, pt will be discharged on HIGH intensity statin.: Yes Primary Dx Acute Ischemic CVA?: Yes Discharge Plan Admission Admit Date/Time: 09/11/24 02:24 Attending Provider: Ceasar Bundy Primary Care Provider: Angy Tran NP Consulting Providers: Rio Romero; Noemy Stevens; Anitha Britt; Cecilio Mckenzie; Rajinder Cortes; Kerry Nelson; FRANDY BONILLA; Bonnie Garces; Susanne Suárez; Liborio Sauceda; Cordelia Cruz; Ethan Skinner; Thomas Brennan; Liss Luz; Gisella rOtega; Barrington Jane; Darby Doherty; Javon Calloway; Kuashik Yost; Kirk Quintero; Angelica Lemus; Patricia Roe; Tyree Addison; Rod León; Eligio Tirado; Billie Garvin; Janice Rivera Instructions Patient Instructions: ED Shoulder Bruise Discharge Orders/Prescriptions Prescriptions: No Action bisacodyl 10 mg suppository 10 mg VA QDAY PRN (Reason: constipation) bupropion HCl 150 mg tablet extended release 24 hr 150 mg PO BID mineral oil [Fleet Mineral Oil] Enema 118 ml VA QDAY PRN (Reason: constipation) Rx Instructions: discard any unused portion magnesium hydroxide [Milk of Magnesia] 400 mg/5 mL suspension 30 ml PO QDAY PRN (Reason: stomach upset) Saline Nasal Mist 3 % mist 1 spray intranasal DAILY PRN PRN (Reason: congestion) KRIS-e 400 mg tablet 400 mg PO BID Rx Instructions: administer on an empty stomach copper 3 mg tablet 3 mg PO DAILY passion flower 250 mg capsule 250 mg PO DAILY PRN (Reason: anxiety) ascorbic acid (vitamin C) [C-1000] 1,000 mg tablet 1 g PO DAILY omega 7-ste-lrm-fish oil [Fish Oil] 1,200 (144-216) mg capsule 1 cap PO DAILY Complex B-100 Tablet Extended Release 1 tab PO DAILY ashwagandha root extract 500 mg capsule 500 mg PO DAILY zinc gluconate 50 mg tablet 50 mg PO DAILY cod liver oil Capsule 1 cap PO DAILY PreserVision AREDS 4,296 mcg-226 mg-90 mg capsule 1 cap PO DAILY betaine HCl 300 mg tablet 300 mg PO DAILY citrulline [L-Citrulline] 1 cap PO DAILY atorvastatin 80 mg Tablet 80 mg PO QHS Qty: 0 0RF aspirin 81 mg Tablet,Chewable 81 mg PO DINNER Qty: 0 0RF lisinopril 5 mg Tablet 5 mg PO DAILY Qty: 0 0RF Referrals / Follow Up: Angy Tran [facility], [facility] [Primary Care Provider] - 5-7 Days Disposition Discharge Orders: Discharge Patient (Routine); Ordered 09/11/24 Ordered By: Dr. Ceasar Bundy Charges/Coding Visit Charges Inpatient E&M: 46385 Disch Hosp >30min
[2024-09-12 15:17] VITALS: BP 110/84; PULSE 85; RESP 18; TEMP 36.9; O2SAT 93
[2024-09-12] MEDS: Aspirin E.C. 81 MG Tablet PO (15:22)
[2024-09-12] MEDS: Lisinopril 5 MG Tablet PO (15:22)
--- NOTE | 2024-09-12 16:34 | CHAPLAIN ---
Type of Pastoral Visit ___ Initial Visit _x__ Follow-up Visit ___ On-call Visit ___ General Patient Visit ___ Spiritual Assessment ___ Family Conference ___ Bereavement ___ Rapid Response ___ Code Blue ___ Other (describe below) Pastoral Care Referral From _x__ Patient ___ Family ___ Nurse ___ Physician ___ [employer]ia[employer] Officer ___ Sap Portal Architect ___ Other (describe below) Sacrament/Intervention _x__ Active listening ___ Anointing ___ Congregation ___ Bereavement ___ Communion _x__ Irene exploration ___ ___ Life review _x__ Prayer ___ Reconciliation ___ Sacrament of Sick _x__ Supportive presence ___ Wedding ___ Other (describe below) Pastoral Comments patient is in the room today and so this is a first visit to him but a second visit of support to family; pt is unsure about whether he is staying here or being transferred; pt is given time to express himself but that is slow as conversation is deliberate; pt admits that his thinking is not very clear; pt acknowledges that many people are calling to check on him and that many are praying for him; he repeats this thought in the conversation; pt is given time to express himself and for prayer support
[2024-09-12 17:11] VITALS: BMI 30.5
[2024-09-12 17:42] VITALS: BP 120/68; PULSE 87; RESP 19; TEMP 37.1; O2SAT 94
--- NOTE | 2024-09-12 18:10 | NURSING ---
report called to Lupe Robison [phone]
--- NOTE | 2024-09-12 18:14 | NURSING ---
patient taken to [facility] belongings with patient family present
== END 2024-09-12 18:08 | disposition short-term general hospital (02) | DRG 53 ==
LOC: ED 18:48 → PCU 09-11 02:40
PROVIDERS: Emergency Medicine; Admitting Provider Internal Medicine; Emergency Provider Emergency Medicine; PCP Registered Nurse; Visit Provider Internal Medicine
DX: G40.909 Epilepsy, unspecified, not intractable, without status epilepticus (principal); G93.40 Encephalopathy, unspecified; I63.89 Other cerebral infarction; I67.850 Cerebral autosomal dominant arteriopathy with subcortical infarcts and leukoencephalopathy; F03.90 Unspecified dementia, unspecified severity, without behavioral disturbance, psychotic disturbance, mood disturbance, and anxiety; I10 Essential (primary) hypertension; E66.9 Obesity, unspecified; S40.012A Contusion of left shoulder, initial encounter; J34.9 Unspecified disorder of nose and nasal sinuses; F41.8 Other specified anxiety disorders; J32.9 Chronic sinusitis, unspecified; S40.011A Contusion of right shoulder, initial encounter; E78.5 Hyperlipidemia, unspecified; W19.XXXA Unspecified fall, initial encounter; Z86.73 Personal history of transient ischemic attack (TIA), and cerebral infarction without residual deficits; Z68.32 Body mass index [BMI] 32.0-32.9, adult; Z79.82 Long term (current) use of aspirin; Z79.899 Other long term (current) drug therapy